=== PATIENT | male | born 1980 | race Caucasian/White ===

== ENCOUNTER 2020-03-16 10:01 | Outpatient (REF) | payer OTHER, SELFPAY ==
[2020-03-16 13:58] LABS: MANUAL DIFF FLAG NO
[2020-03-16 14:15] LABS: Basophils Percent Auto 0.5 % (0-2); Eosinophils Absolute Auto 0.1 X10*3/uL (0.0-0.4); Eosinophils Percent Auto 1.6 % (0-4); Hematocrit 43.5 % (42-52); Hemoglobin 14.4 g/dl (14.0-18.0); Imm Gran Abs Auto 0.01 X10*3/uL (0.00-0.03); Imm Gran Pct Auto 0.3 % (0.0-0.4); Lymphocytes Percent Auto 26.6 % (20-40); Mean Corpuscular HGB Conc 33.1 g/dl (31.0-36.0); Mean Corpuscular Hemoglobin 31.3 pg (27.0-33.0); Mean Corpuscular Volume 94.6 fL (80-98); Mean Platelet Volume 11.2 fL (9.4-12.4); Monocytes Absolute Auto 0.6 X10*3/uL (0.1-1.2); Monocytes Percent Auto 14.6 % (2-11); Neutrophils Absolute Auto 2.2 X10*3/uL (2.0-8.3); Neutrophils Percent Auto 56.4 % (45-73); Platelet Count 264 X10*3/uL (160-400); White Blood Count 3.8 X10*3/uL (4.8-10.8)
[2020-03-16 14:40] LABS: Alanine Aminotransferase 12 U/L (0-40); Albumin Level 4.5 g/dL (3.5-5.0); Alkaline Phosphatase 47 U/L (39-117); Aspartate Amino Transferase 16 U/L (5-37); Bilirubin Direct 0.2 mg/dL (0.0-0.5); Bilirubin Total 0.7 mg/dL (0.0-1.0); Total Protein 7.3 g/dL (6.5-8.0)
== END 2020-03-16 10:02 | disposition home or self-care (01) ==
LOC: HO.10HDL 10:01
PROVIDERS: Visit Provider Internal Medicine
DX: K50.812 Crohn's disease of both small and large intestine with intestinal obstruction (principal)
CPT/HCPCS: 36415; 80076; 85025

== ENCOUNTER 2020-04-13 16:01 | Inpatient (IN) | payer OTHER, SELFPAY ==
--- NOTE | 2020-04-13 | XR_ITS ---
EXAMINATION: XR CHEST CLINICAL INFORMATION: NG tube insertion. COMPARISON: 04/13/2020 TECHNIQUE: Frontal view of the chest was obtained. FINDINGS: The enteric tube has been further advanced since the prior study. It now terminates over the stomach. The side port is in the region of the gastroesophageal junction. The lungs are well expanded. There is no focal consolidation, edema, or effusion. Bronchial wall thickening noted. No pneumothorax. The cardiomediastinal silhouette is within normal limits. No acute osseous abnormality. XR/XR chest 1V IMPRESSION: Enteric tube now terminating over the stomach with the side-port in the region of the gastroesophageal junction. Consider further advancement. Bronchial wall thickening can be seen with a small airways process such as asthma or atypical/viral infection.
--- NOTE | 2020-04-13 | XR_ITS ---
EXAMINATION: XR CHEST CLINICAL INFORMATION: NG tube placement COMPARISON: 11/11/2018 TECHNIQUE: Frontal view of the chest was obtained. FINDINGS: There is an enteric tube in place terminating at the distal esophagus. The lungs are well expanded. There is no focal consolidation, edema, or effusion. Bronchial wall thickening noted. No pneumothorax. The cardiomediastinal silhouette is within normal limits. No acute osseous abnormality. XR/XR chest 1V IMPRESSION: Enteric tube terminating at the distal esophagus. Advancement recommended. Bronchial wall thickening can be seen with a small airways process such as asthma or atypical/viral infection.
--- NOTE | 2020-04-13 | XR_ITS ---
EXAMINATION: CHEST 1 VIEW CLINICAL INFORMATION: Enteric tube placement. COMPARISON: Multiple prior exams are reviewed. The most recent is from the same day at 1015 hours. TECHNIQUE: An AP view of the chest was obtained at 2345 hours. FINDINGS: The cardiac silhouette is not enlarged. An enteric tube tip overlies the left upper quadrant, likely within the stomach. The mediastinal and hilar contours are unremarkable. There are neither pleural effusions nor pneumothoraces. There are no consolidations. The osseous structures are stable. XR/XR chest 1V IMPRESSION: Enteric tube in place. No evidence for acute disease.
[2020-04-13 16:12] VITALS: BP 119/80; PULSE 80; RESP 16; TEMP 36.9; O2SAT 99; BMI 27.1
--- NOTE | 2020-04-13 17:05 | ED_ITS ---
HPI - Abdominal Pain General Chief Complaint: Abdominal Pain Stated Complaint: abdominal pain Time Seen by Provider: 04/13/20 16:55 Source: patient Mode of arrival: ambulatory Limitations: no limitations History of Present Illness HPI narrative: Patient comes to the emergency room complaining of diffuse abdominal pain starting this morning at 05:00. Patient unfortunately has history of Crohn's disease with multiple small-bowel obstructions, patient estimates he has had over 50 throughout his lifetime. Patient is very familiar with the pain. Patient denies vomiting, no diarrhea Related Data Home Medications Medication Instructions Recorded Confirmed azathioprine 300 mg PO DAILY 04/13/20 04/13/20 lorazepam 1 mg PO BID PRN 04/13/20 04/13/20 ustekinumab [Stelara] 90 mg SUBCUT Q4W 04/13/20 04/13/20 zolpidem 10 mg PO BEDTIME PRN 04/13/20 04/13/20 Allergies Allergy/AdvReac Type Severity Reaction Status Date / Time Penicillins Allergy Mild RASH Unverified 01/12/20 15:42 penicillin V Allergy Unknown rash Verified 11/28/15 00:00 Review of Systems Review of Systems Appearance: Alert. Oriented X3. No acute distress. Eyes: Pupils equal, round and reactive to light. ENT: Pharynx normal. Neck: Normal inspection. Neck supple. No lymph nodes noted. No crepitus CVS: Normal heart rate and rhythm. Pulses normal. Normal S1 and S2 Respiratory: No respiratory distress. Breath sounds normal. No Wheezing. No rales Abdomen: Soft, mildly distended, diffusely tender Skin: Skin warm and dry. Normal skin color. Normal skin turgor. Extremities: No lower extremity edema. No lower extremity edema. No Lacerations. No Rash Neuro: Oriented X 3. No motor deficit. No sensory deficit. Moving all extermities. No slurred speech. Physical Exam Vital Signs: Vital Signs: Last Vital Signs Temp 98.7 F 04/13/20 17:42 Pulse 65 04/13/20 17:42 Resp 65 H 04/13/20 17:42 BP 116/73 04/13/20 17:42 Pulse Ox 96 04/13/20 17:42 Body Mass Index 27.1 Course Course Course Narrative: I discussed the CT scan on the patient with Dr. Leroy, patient being admitted for SBO MDM - Abdominal Pain Lab Data Result diagrams: 04/13/20 17:22 04/13/20 17:22 Labs: Lab Results 04/13/20 04/13/20 Range/Units 17:22 17:22 WBC 8.8 (4.8-10.8) X10*3/uL RBC 4.21 L (4.60-5.80) X10*6/uL Hgb 13.6 L (14.0-18.0) g/dl Hct 38.8 L (42-52) % MCV 92.2 (80-98) fL MCH 32.3 (27.0-33.0) pg MCHC 35.1 (31.0-36.0) g/dl RDW 13.3 (11.0-16.0) % Plt Count 231 (160-400) X10*3/uL MPV 10.3 (9.4-12.4) fL Immature Gran % (Auto) 0.8 H (0.0-0.4) % Neut % (Auto) 80.9 H (45-73) % Lymph % (Auto) 9.0 L (20-40) % [place] % (Auto) 8.3 (2-11) % Eos % (Auto) 0.8 (0-4) % Baso % (Auto) 0.2 (0-2) % Lymph # (Auto) 0.8 L (1.2-4.9) X10*3/uL [place] # (Auto) 0.7 (0.1-1.2) X10*3/uL Eos # (Auto) 0.1 (0.0-0.4) X10*3/uL Baso # (Auto) 0.0 (0.0-0.2) X10*3/uL Abs Immat Gran (auto) 0.07 H (0.00-0.03) X10*3/uL Absolute Neuts (auto) 7.1 (2.0-8.3) X10*3/uL Absolute Nucleated RBC 0.000 (0.0-0.012) X10*3/uL Nucleated RBC % (auto) 0.0 (0.0-0.2) /100WBC Sodium 142 (135-145) mmol/L Potassium 4.1 (3.3-5.1) mmol/l Chloride 105 (96-108) mmol/L Carbon Dioxide 30 H (22-29) mmol/L Anion Gap 11 L (12-20) BUN 15 (9-16) mg/dL Creatinine 0.95 (0.5-1.4) mg/dL Estim Creat Clear Calc 108.9 Estimated GFR > 60 Random Glucose 88 (60-115) mg/dL Calcium 9.3 (8.4-10.2) mg/dL Total Bilirubin 0.4 (0.0-1.0) mg/dL Direct Bilirubin 0.2 (0.0-0.5) mg/dL AST 20 (5-37) U/L ALT 9 (0-40) U/L Alkaline Phosphatase 51 (39-117) U/L Total Protein 7.3 (6.5-8.0) g/dL Albumin 4.5 (3.5-5.0) g/dL Lipase 26 (8-78) U/L Imaging Data CT scan - abdomen: Radiologist's impression: FINDINGS: LUNG BASES: The visualized lung bases are unremarkable. LIVER, GALLBLADDER, AND BILIARY TREE: The liver is normal in size, shape, and attenuation. No focal hepatic lesion or biliary ductal dilatation is present. The gallbladder is unremarkable with no evidence of radiopaque gallstones, gallbladder wall thickening, or obvious pericholecystic inflammatory changes. PANCREAS: Unremarkable. SPLEEN: Unremarkable. ADRENAL GLANDS: Unremarkable. KIDNEYS AND URETERS: The kidneys are normal in size, shape, and attenuation. No hydronephrosis, hydroureter, or calculi seen. No perinephric stranding. BLADDER: Unremarkable. GASTROINTESTINAL TRACT: Distended stomach without wall thickening. Normal caliber small bowel proximally. The small bowel progressively gets dilated, with significantly dilated small bowel in the midabdomen with air-fluid levels. Distally the small bowel is decompressed. There is a suture line in the left lower quadrant, which may be the transition point. There are no areas of small bowel wall thickening seen, although evaluation is limited for this. The colon is normal in caliber. No colonic wall thickening. No acute inflammatory changes. No free air. No significant free fluid. ABDOMINAL WALL: No significant hernia is appreciated. LYMPH NODES: Normal. VASCULAR: Unremarkable. PELVIC VISCERA: The prostate and seminal vesicles are unremarkable. OSSEOUS STRUCTURES: No acute or suspicious osseous abnormality. CT/CT abdomen pelvis wo con IMPRESSION: Appearance of a small bowel obstruction, likely transitioning at the anastomotic site of the left lower quadrant. Small bowel dilatation is more prominent than on the study from 11/11/2018. There is gas and stool in portions of the colon suggesting that this obstruction may be early or partial. Discharge Plan Discharge Clinical Impression: Small bowel obstruction Patient Disposition: Admitted As Inpatient [facility] Past Medical History Medical History (Updated 04/13/20 @ 17:32 by Alexandre Leroy MD) Acute Crohn's disease Anxiety Crohn's disease SBO (small bowel obstruction) Small bowel obstruction Surgical History History of bowel resection History of bowel resection History of laparotomy Hx of appendectomy Social History Social History Alcohol intake: never Smoked in Last 30 Days: No Use of substances other than those prescribed or required for medical reasons: No Advance Directives: No Advance Directives Information Provided: No
--- NOTE | 2020-04-13 17:09 | CT_ITS ---
EXAMINATION: CT ABDOMEN AND PELVIS WITHOUT CONTRAST CLINICAL INFORMATION: Multiple small bowel obstructions. History of Crohn's disease. Rule out small bowel obstruction. COMPARISON: 11/11/2018 TECHNIQUE: Multidetector volumetric imaging was performed from the superior aspect of the liver through the pubic symphysis. Sagittal and coronal reformatted images were obtained on the technologist's workstation. This CT examination was performed using dose optimization techniques as appropriate, variously including the following: *Automated exposure control *Adjustment of mA and/or kV according to patient size (this includes techniques or standardized protocols for targeted exams where dose is matched to indication/reason for exam; i.e. extremities or head) *Use of iterative reconstruction technique DLP: 578 mGy-cm FINDINGS: LUNG BASES: The visualized lung bases are unremarkable. LIVER, GALLBLADDER, AND BILIARY TREE: The liver is normal in size, shape, and attenuation. No focal hepatic lesion or biliary ductal dilatation is present. The gallbladder is unremarkable with no evidence of radiopaque gallstones, gallbladder wall thickening, or obvious pericholecystic inflammatory changes. PANCREAS: Unremarkable. SPLEEN: Unremarkable. ADRENAL GLANDS: Unremarkable. KIDNEYS AND URETERS: The kidneys are normal in size, shape, and attenuation. No hydronephrosis, hydroureter, or calculi seen. No perinephric stranding. BLADDER: Unremarkable. GASTROINTESTINAL TRACT: Distended stomach without wall thickening. Normal caliber small bowel proximally. The small bowel progressively gets dilated, with significantly dilated small bowel in the midabdomen with air-fluid levels. Distally the small bowel is decompressed. There is a suture line in the left lower quadrant, which may be the transition point. There are no areas of small bowel wall thickening seen, although evaluation is limited for this. The colon is normal in caliber. No colonic wall thickening. No acute inflammatory changes. No free air. No significant free fluid. ABDOMINAL WALL: No significant hernia is appreciated. LYMPH NODES: Normal. VASCULAR: Unremarkable. PELVIC VISCERA: The prostate and seminal vesicles are unremarkable. OSSEOUS STRUCTURES: No acute or suspicious osseous abnormality. CT/CT abdomen pelvis wo con IMPRESSION: Appearance of a small bowel obstruction, likely transitioning at the anastomotic site of the left lower quadrant. Small bowel dilatation is more prominent than on the study from 11/11/2018. There is gas and stool in portions of the colon suggesting that this obstruction may be early or partial.
[2020-04-13] MEDS: 0.9 % Sodium Chloride 1,000 ML 999 ML IVCONT (17:22)
--- NOTE | 2020-04-13 17:24 | PM.HPGS ---
History of Present Illness History of Present Illness Date of Service: 04/14/20 Chief complaint: small bowel obstruction, crohns ds Narrative: Justin Jorge is a 40 year old male wellkknwon to me. He has a long history of Crohn's disease and has had multiple admissions for SBO here. He has had a laparoscopy and bowel resection (smalbowel?) in [place] in the distant past which required readmission for an anastomotic leak managed nonoperatively. He describes haveing abdominal pain starting around noontime today. He describes this as crampy, severe and diffuse and similar to his previous other episodes of SBO. he denesi any vomitting although says he ahd a little nausea earlier. He says he did pass flatus earlier today. His last admission here for SBO was in October 2019. He says this current episode feels like his other episodes. Review of Systems Constitutional: Constitutional: Denies chills and Denies fever(s) Cardiovascular: Cardiovascular: Denies chest pain, Denies dyspnea and Denies dyspnea on exertion Respiratory: Respiratory: Denies cough, Denies dyspnea and Denies dyspnea on exertion Gastrointestinal: Gastrointestinal: Denies hematochezia and Denies change in bowel habits Genitourinary: Genitourinary: Denies hematuria and Denies difficulty urinating Musculoskeletal: Musculoskeletal: Denies back pain and Denies limited range of motion Neurologic: Denies focal weakness and Denies convulsions Psychiatric: Psychiatric: Denies depression and Denies mood swings PMF Past Medical History Medical History (Updated 04/13/20 @ 17:32 by Alexandre Leroy MD) Acute Crohn's disease Anxiety Crohn's disease SBO (small bowel obstruction) Small bowel obstruction Family History Pertinent family history: none Family history: reviewed and not pertinent Surgical History Surgical History History of bowel resection History of bowel resection History of laparotomy Hx of appendectomy Social History Social History Household Members: Family Housing: House Do you presently have visiting nurse or other home services: Yes Alcohol intake: never Smoking Status: Never smoker Smoked in Last 30 Days: No Second Hand Smoke Exposure: No Use of substances other than those prescribed or required for medical reasons: No Currently Displaying Signs/Symptoms of Drug Intoxication Withdrawal: No Have you been hit, kicked, punched, or otherwise hurt by someone within the past year? If so, by whom?: No Do you feel safe in your current relationship?: Yes Is there a partner from a previous relationship who is making you feel unsafe now?: No Are you made to feel afraid or neglected: No Advance Directives: No Advance Directives Information Provided: No Do you have thoughts of harming others: None Do you have a plan to hurt others: No Plan Recently lost weight without trying: No Meds Allergies Allergy/AdvReac Type Severity Reaction Status Date / Time Penicillins Allergy Mild RASH Unverified 01/12/20 15:42 penicillin V Allergy Unknown rash Verified 11/28/15 00:00 Home Medications Medication Instructions Recorded Confirmed Type azathioprine 300 mg PO DAILY 04/13/20 04/13/20 History lorazepam 1 mg PO BID PRN 04/13/20 04/13/20 History ustekinumab [Stelara] 90 mg SUBCUT Q4W 04/13/20 04/13/20 History zolpidem 10 mg PO BEDTIME PRN 04/13/20 04/13/20 History Physical Exam Vital Signs: Vital Signs: Last Vital Signs Temp 98.4 F 04/13/20 16:12 Pulse 80 04/13/20 16:12 Resp 16 04/13/20 16:12 BP 119/80 04/13/20 16:12 Pulse Ox 99 04/13/20 16:12 Body Mass Index 27.1 Const: General: alert; No comfortable Orientation/consciousness: patient oriented x3 Neck: Neck: Yes no lymphadenopathy Resp: Auscultation: clear to auscultation bilaterally Cardio: Rhythm: regular rhythm GI: Palpation (GI): Soft to palpation, Tenderness to palpation present (GI) (diffuse,vague), no guarding and not rigid Neuro: General: patient oriented x3 Results Results Labs: Chemistry 04/13/20 04/14/20 17:22 06:19 Sodium 142 140 Potassium 4.1 4.0 Carbon Dioxide 30 H 26 BUN 15 14 Creatinine 0.95 0.74 Calcium 9.3 8.2 L D Hematology 04/13/20 04/14/20 17:22 06:19 WBC 8.8 4.2 L Hgb 13.6 L 11.9 L Plt Count [address] scan report/results: image reviewed Assessment and Plan (1) Small bowel obstruction: Status: Acute He has longstandiing Crohn's disease and has had multiple admissions for SBO. His CT scan does show dilated small bowel loops in the lower abdomen. He does have air distally suggestive of partial SBO. His current presentationn is the same as his previous episodes. He will be admitted and kept NPO with IVF. He will have an NGT placed. He currently has a benign exam. He is familiar with the plan.
[2020-04-13 17:35] VITALS: RESP 16
[2020-04-13] MEDS: HYDROmorphone HCl 1 MG/ML SYRINGE IVPUSH ×2 (17:35→18:46)
[2020-04-13 17:42] VITALS: BP 116/73; PULSE 65; RESP 65; TEMP 37.1; O2SAT 96
[2020-04-13 17:43] LABS: MANUAL DIFF FLAG NO
[2020-04-13 18:02] LABS: Basophils Percent Auto 0.2 % (0-2); Eosinophils Absolute Auto 0.1 X10*3/uL (0.0-0.4); Eosinophils Percent Auto 0.8 % (0-4); Hematocrit 38.8 % (42-52); Hemoglobin 13.6 g/dl (14.0-18.0); Imm Gran Abs Auto 0.07 X10*3/uL (0.00-0.03); Imm Gran Pct Auto 0.8 % (0.0-0.4); Lymphocytes Absolute Auto 0.8 X10*3/uL (1.2-4.9); Mean Corpuscular HGB Conc 35.1 g/dl (31.0-36.0); Mean Corpuscular Hemoglobin 32.3 pg (27.0-33.0); Mean Corpuscular Volume 92.2 fL (80-98); Mean Platelet Volume 10.3 fL (9.4-12.4); Monocytes Absolute Auto 0.7 X10*3/uL (0.1-1.2); Monocytes Percent Auto 8.3 % (2-11); Neutrophils Absolute Auto 7.1 X10*3/uL (2.0-8.3); Neutrophils Percent Auto 80.9 % (45-73); Platelet Count 231 X10*3/uL (160-400); Red Blood Count 4.21 X10*6/uL (4.60-5.80); Red Cell Distribution Width 13.3 % (11.0-16.0); White Blood Count 8.8 X10*3/uL (4.8-10.8)
[2020-04-13 18:09] LABS: Alanine Aminotransferase 9 U/L (0-40); Albumin Level 4.5 g/dL (3.5-5.0); Alkaline Phosphatase 51 U/L (39-117); Anion Gap 11 (12-20); Aspartate Amino Transferase 20 U/L (5-37); Bilirubin Direct 0.2 mg/dL (0.0-0.5); Bilirubin Total 0.4 mg/dL (0.0-1.0); Blood Urea Nitrogen 15 mg/dL (9-16); Calcium 9.3 mg/dL (8.4-10.2); Carbon Dioxide 30 mmol/L (22-29); Chloride 105 mmol/L (96-108); Creatinine Clr Calc Pharmacy 108.9; Estimated Glomerular Filt Rate > 60; Glucose Random 88 mg/dL (60-115); Lipase 26 U/L (8-78); Potassium 4.1 mmol/l (3.3-5.1); Sodium 142 mmol/L (135-145); Total Protein 7.3 g/dL (6.5-8.0)
[2020-04-13 18:46] VITALS: RESP 16
[2020-04-13 19:10] VITALS: BP 131/65; PULSE 67; RESP 16; TEMP 36.1; O2SAT 99
[2020-04-13 19:24] LABS: COVID-19 Test Negative (Negative)
[2020-04-13] MEDS: HYDROmorphone HCl 0.5 MG/0.5 ML SYRINGE IVPUSH (21:14)
[2020-04-13] MEDS: Lactated Ringers 1,000 ML 100 ML IVCONT (21:14)
[2020-04-13] MEDS: LORazepam 2 MG/ML VIAL 0.5 MG IVPUSH (23:01)
[2020-04-13 23:59] VITALS: BP 136/72; PULSE 59; RESP 18; TEMP 36.6; O2SAT 97
[2020-04-14] MEDS: HYDROmorphone HCl 0.5 MG/0.5 ML SYRINGE IVPUSH ×5 (02:22→19:59)
[2020-04-14 03:18] VITALS: BP 116/66; PULSE 52; RESP 18; TEMP 36.5; O2SAT 98
[2020-04-14] MEDS: Lactated Ringers 1,000 ML 100 ML IVCONT ×3 (06:19→15:42)
[2020-04-14 07:12] LABS: Hemoglobin 11.9 g/dl (14.0-18.0); Mean Corpuscular HGB Conc 33.1 g/dl (31.0-36.0); Mean Corpuscular Hemoglobin 31.5 pg (27.0-33.0); Mean Corpuscular Volume 95.2 fL (80-98); Platelet Count 197 X10*3/uL (160-400); Red Blood Count 3.78 X10*6/uL (4.60-5.80); Red Cell Distribution Width 13.4 % (11.0-16.0); White Blood Count 4.2 X10*3/uL (4.8-10.8)
[2020-04-14 07:49] LABS: Anion Gap 11 (12-20); Blood Urea Nitrogen 14 mg/dL (9-16); Calcium 8.2 mg/dL (8.4-10.2); Carbon Dioxide 26 mmol/L (22-29); Chloride 107 mmol/L (96-108); Creatinine Clr Calc Pharmacy 139.9; Estimated Glomerular Filt Rate > 60; Glucose Random 105 mg/dL (60-115); Sodium 140 mmol/L (135-145)
[2020-04-14 07:57] VITALS: BP 116/63; PULSE 56; RESP 20; TEMP 36.5; O2SAT 100
[2020-04-14] MEDS: azaTHIOprine 50 MG TABLET 300 MG PO (08:42)
--- NOTE | 2020-04-14 10:15 | PM.PNGS ---
Subjective Subjective Date of Service: 04/14/20 Interval history: feels much better says abdl pain has imrpvoed markedly passing flatus Physical Exam Vital Signs: Vital Signs: Last Vital Signs Temp 97.7 F 04/14/20 07:57 Pulse 56 04/14/20 07:57 Resp 20 04/14/20 07:57 BP 116/63 04/14/20 07:57 Pulse Ox 100 04/14/20 07:57 Body Mass Index 27.1 Chemistry 04/13/20 04/14/20 17:22 06:19 Sodium 142 140 Potassium 4.1 4.0 Carbon Dioxide 30 H 26 BUN 15 14 Creatinine 0.95 0.74 Calcium 9.3 8.2 L D Hematology 04/13/20 04/14/20 17:22 06:19 WBC 8.8 4.2 L Hgb 13.6 L 11.9 L Plt Count 231 197 Const: General: comfortable and no acute distress Orientation/consciousness: patient oriented x3 Resp: Effort & Inspection: normal respiratory effort Cardio: Rate: regular rate Rhythm: regular rhythm GI: Palpation (GI): Soft to palpation, not firm, nontender and no guarding Neuro: General: patient oriented x3 Progress Note: A&P Assessment and plan (1) Small bowel obstruction: Status: Acute Assessment and Plan: improving well labs ok looks well plan to dc NGT later today pt well known to me Fall Risk Details Current Medications: Current Medications Generic Name Dose Route Start Last Admin Trade Name Freq PRN Reason Stop Dose Admin Azathioprine 300 mg 04/14/20 09:00 04/14/20 08:42 Azathioprine 50 Mg Tablet PO 300 mg DAILY DEAN Administration Hydromorphone HCl 0.5 mg 04/13/20 17:40 04/14/20 06:20 Hydromorphone Hcl 0.5 Mg/0.5 Ml Syringe IVPUSH 0.5 mg Q4H PRN Administration pain Lactated Ringer's 1,000 mls @ 100 mls/hr 04/13/20 17:45 04/14/20 06:19 Lr IVCONT 100 mls/hr .Q10H DEAN Administration Lorazepam 0.5 mg 04/13/20 17:45 04/13/20 23:01 Lorazepam 2 Mg/Ml Vial IVPUSH 0.5 mg Q8H PRN Administration anxiety Ondansetron HCl 4 mg 12/18/20 17:39 Ondansetron Hcl 4 Mg/2 Ml Vial IVPUSH Q8H PRN nausea Pharmacy Consult 1 each 04/13/20 17:27 Consult Rx Perform Med Rec MISCELLANE ONCE PRN Consult order Zolpidem Tartrate 5 mg 04/13/20 17:41 Zolpidem Tartrate 5 Mg Tablet PO BEDTIME PRN Insomnia Time Spent With Patient Time: Total time spent is greater than 50% in coordination of care (as documented) at patient's floor/unit and/or counseling patient: Time with patient: 15 - 24 minutes
--- NOTE | 2020-04-14 13:50 | PC.NURSE ---
1350 NG-TUBE REMOVED BY DR LINDQUIST. PATIENT TOLERATED WELL. [id number] 50CC OUTPUT. WILL CONTINUE TO MONITOR AND ASSESS.
--- NOTE | 2020-04-14 14:06 | MHC.CM.PN ---
Pt reports he lives at home with his and is full independent with all care and mobility. 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 Pt reports he has a HCP naming his , Loli, as his agent and he goes to [facility] where he was seeing SILVIA Kasper for primary care. pts current DC plan is home with no services pt will drive himself home, car is in the lot
[2020-04-14 19:41] VITALS: BP 121/74; PULSE 48; RESP 16; TEMP 36.4; O2SAT 98
[2020-04-14] MEDS: Zolpidem Tartrate 5 MG TABLET PO (22:22)
[2020-04-15 01:18] VITALS: BP 129/68; PULSE 56; RESP 16; TEMP 36.1; O2SAT 99
[2020-04-15] MEDS: HYDROmorphone HCl 0.5 MG/0.5 ML SYRINGE IVPUSH (02:16)
[2020-04-15 06:00] VITALS: BP 112/58; PULSE 60; RESP 16; TEMP 37.1; O2SAT 99
[2020-04-15 07:47] VITALS: BP 109/67; PULSE 51; RESP 15; TEMP 36.2; O2SAT 98
[2020-04-15] MEDS: azaTHIOprine 50 MG TABLET 300 MG PO (08:48)
--- NOTE | 2020-04-15 09:58 | PM.PNGS ---
Subjective Subjective Date of Service: 04/15/20 Interval history: feels well passing flatus no abdl pain no N/V Physical Exam Vital Signs: Vital Signs: Last Vital Signs Temp 97.2 F 04/15/20 07:47 Pulse 51 04/15/20 07:47 Resp 15 04/15/20 07:47 BP 109/67 04/15/20 07:47 Pulse Ox 98 04/15/20 07:47 Body Mass Index 27.1 Const: General: comfortable and no acute distress Resp: Effort & Inspection: normal respiratory effort Cardio: Rate: regular rate GI: Inspection: No distended Palpation (GI): Soft to palpation, nontender and no guarding Progress Note: A&P Assessment and plan (1) Small bowel obstruction: Status: Acute Assessment and Plan: clinically resolved advance diet looks well he says he feels ready to go home plan to dc home today when tolerating diet (2) Crohn's disease: Problem details: continue same meds ffup with Dr. James Status: Acute Fall Risk Details Current Medications: Current Medications Generic Name Dose Route Start Last Admin Trade Name Freq PRN Reason Stop Dose Admin Azathioprine 300 mg 04/14/20 09:00 04/15/20 08:48 Azathioprine 50 Mg Tablet PO 300 mg DAILY DEAN Administration Hydromorphone HCl 0.5 mg 04/13/20 17:40 04/15/20 02:16 Hydromorphone Hcl 0.5 Mg/0.5 Ml Syringe IVPUSH 0.5 mg Q4H PRN Administration pain Lactated Ringer's 1,000 mls @ 100 mls/hr 04/13/20 17:45 04/15/20 01:42 Lr IVCONT Infused .Q10H DEAN Infusion Lorazepam 0.5 mg 04/13/20 17:45 04/13/20 23:01 Lorazepam 2 Mg/Ml Vial IVPUSH 0.5 mg Q8H PRN Administration anxiety Ondansetron HCl 4 mg 04/13/20 17:39 Ondansetron Hcl 4 Mg/2 Ml Vial IVPUSH Q8H PRN nausea Pharmacy Consult 1 each 04/13/20 17:27 Consult Rx Perform Med Rec MISCELLANE ONCE PRN Consult order Zolpidem Tartrate 5 mg 04/13/20 17:41 04/14/20 22:22 Zolpidem Tartrate 5 Mg Tablet PO 5 mg BEDTIME PRN Administration Insomnia Time Spent With Patient Time: Total time spent is greater than 50% in coordination of care (as documented) at patient's floor/unit and/or counseling patient: Time with patient: 15 - 24 minutes
[2020-04-15] MEDS: Lactated Ringers 1,000 ML 100 ML IVCONT (10:08)
--- NOTE | 2020-04-15 10:24 | MHC.CM.PN ---
PATIENT WILL RETURN HOME TODAY - SELF CARE. CAR IS IN LOT. RN AWARE OF PLAN.
[2020-04-15 11:57] VITALS: BP 125/64; PULSE 52; RESP 17; TEMP 36.1; O2SAT 100
--- NOTE | 2020-04-15 14:43 | PC.NURSE ---
pt reported tolerating regular diet well, without any pain, nausea or vomitting
--- NOTE | 2020-04-17 13:50 | PM.DS ---
DS: Providers Provider Date of admission: 04/13/20 17:38 Primary care physician: Unknown Physician DS: Diagnosis Discharge Diagnosis (1) Small bowel obstruction: Status: Acute Problem details: The patient is a 40-year-old male history of Crohn's disease, multiple surgeries in the past, admitted because of abdominal pain, diffuse. He has had multiple admissions for small-bowel obstruction likely related to his previous small-bowel resection. He had a CAT scan done in the ER showing dilated small bowel loops consistent with partial small-bowel obstruction possibly at the level of small-bowel anastomosis. An NG tube was placed. He really did not have significant output but had good improvement of his abdominal pain after his 1st hospital day. He was getting Dilaudid 0.5 mg for his pain and this had improved significantly. There was minimal output from the NG tube so I removed the NG tube after his 1st hospital day. He was started on clear liquids and this was slowly advanced. He continued to tolerate this. On April 15, 2020, he continued to tolerate regular diet. He had good flatus in good bowel movements. He did not have any significant pains was discharged home. (2) Crohn's disease: Status: Acute Problem details: continue same meds ffup with Dr. James DS: Medications Discharge Medications Home Medications: Home Medications Medication Instructions Recorded Confirmed Stelara 90 mg SUBCUT Q4W 04/13/20 04/13/20 azathioprine 300 mg PO DAILY 04/13/20 04/13/20 lorazepam 1 mg PO BID PRN 04/13/20 04/13/20 zolpidem 10 mg PO BEDTIME PRN 04/13/20 04/13/20 DS: Summary Time Spent with Patient Time attestation: Total time spent providing and/or coordinating discharge services: Physical Exam Vital Signs: Vital Signs: Last Vital Signs Temp 97.0 F 04/15/20 11:57 Pulse 52 04/15/20 11:57 Resp 17 04/15/20 11:57 BP 125/64 04/15/20 11:57 Pulse Ox 100 04/15/20 11:57 Body Mass Index 27.1 Const: General: comfortable and no acute distress Orientation/consciousness: patient oriented x3 Neck: Neck: Yes no lymphadenopathy Resp: Auscultation: clear to auscultation bilaterally Cardio: Rhythm: regular rhythm GI: Palpation (GI): Soft to palpation, nontender and no guarding Neuro: General: patient oriented x3 DS: Data Data Completed and Pending Labs on day of discharge: 04/13/20 XR chest 1V Stat XR chest 1V Stat XR chest 1V Stat 04/13/20 17:00 Morphine Sulfate 4 mg IVPUSH ONCE ONE 04/13/20 17:01 0.9 % Sodium Chloride [Ns] 1,000 ml IVCONT 999 mls/hr 04/13/20 17:09 CT abdomen pelvis wo con Stat 04/13/20 17:21 NG/OG Tube Insert/Maintain NOW 04/13/20 17:22 Basic Metabolic Panel Stat Complete Blood Count Auto Diff Stat Lipase Stat Liver Panel Stat HYDROmorphone HCl [Dilaudid] 1 mg IVPUSH ONCE ONE 04/13/20 17:27 Consult Rx Perform Med Rec 1 each MISCELLANE ONCE PRN 04/13/20 17:39 ondansetron HCL [Zofran] 4 mg IVPUSH Q8H PRN 04/13/20 17:40 HYDROmorphone HCl [Dilaudid] 0.5 mg IVPUSH Q4H PRN 04/13/20 17:41 Zolpidem Tartrate [Ambien] 5 mg PO BEDTIME PRN 04/13/20 17:43 Up ad brinda .prn Vital Signs Q8HR 04/13/20 17:45 LORazepam [Ativan] 0.5 mg IVPUSH Q8H PRN Lactated Ringers [Lr] 1,000 ml IVCONT 100 mls/hr 04/13/20 17:46 Compression Therapy QSHIFT 04/13/20 18:41 HYDROmorphone HCl [Dilaudid] 1 mg IVPUSH ONCE ONE 04/13/20 18:55 COVID-19 ID NOW (Siddiqi) Stat 04/13/20 Dinner NPO Diet 04/13/20 19:52 NG/OG Tube Insert/Maintain NOW 04/14/20 06:19 Basic Metabolic Panel Routine Complete Blood Count no Diff Routine 04/14/20 09:00 azaTHIOprine [Imuran] 300 mg PO DAILY 04/14/20 Lunch Clear Liquid Diet Laboratory Last Values WBC 4.2 X10*3/uL (4.8-10.8) L 04/14/20 06:19 RBC 3.78 X10*6/uL (4.60-5.80) L 04/14/20 06:19 Hgb 11.9 g/dl (14.0-18.0) L 04/14/20 06:19 Hct 36.0 % (42-52) L 04/14/20 06:19 MCV 95.2 fL (80-98) 04/14/20 06:19 MCH 31.5 pg (27.0-33.0) 04/14/20 06:19 MCHC 33.1 g/dl (31.0-36.0) 04/14/20 06:19 RDW 13.4 % (11.0-16.0) 04/14/20 06:19 Plt Count 197 X10*3/uL (160-400) 04/14/20 06:19 MPV 11.0 fL (9.4-12.4) 04/14/20 06:19 Immature Gran % (Auto) 0.8 % (0.0-0.4) H 04/13/20 17:22 Neut % (Auto) 80.9 % (45-73) H 04/13/20 17:22 Lymph % (Auto) 9.0 % (20-40) L 04/13/20 17:22 [place] % (Auto) 8.3 % (2-11) 04/13/20 17:22 Eos % (Auto) 0.8 % (0-4) 04/13/20 17:22 Baso % (Auto) 0.2 % (0-2) 04/13/20 17:22 Lymph # (Auto) 0.8 X10*3/uL (1.2-4.9) L 04/13/20 17:22 [place] # (Auto) 0.7 X10*3/uL (0.1-1.2) 04/13/20 17:22 Eos # (Auto) 0.1 X10*3/uL (0.0-0.4) 04/13/20 17:22 Baso # (Auto) 0.0 X10*3/uL (0.0-0.2) 04/13/20 17:22 Abs Immat Gran (auto) 0.07 X10*3/uL (0.00-0.03) H 12/18/20 17:22 Absolute Neuts (auto) 7.1 X10*3/uL (2.0-8.3) 04/13/20 17:22 Absolute Nucleated RBC 0.000 X10*3/uL (0.0-0.012) 04/14/20 06:19 Nucleated RBC % (auto) 0.0 /100WBC (0.0-0.2) 04/14/20 06:19 Sodium 140 mmol/L (135-145) 04/14/20 06:19 Potassium 4.0 mmol/l (3.3-5.1) 04/14/20 06:19 Chloride 107 mmol/L (96-108) 04/14/20 06:19 Carbon Dioxide 26 mmol/L (22-29) 04/14/20 06:19 Anion Gap 11 (12-20) L 04/14/20 06:19 BUN 14 mg/dL (9-16) 04/14/20 06:19 Creatinine 0.74 mg/dL (0.5-1.4) 04/14/20 06:19 Estim Creat Clear Calc 139.9 04/14/20 06:19 Estimated GFR > 60 04/14/20 06:19 Random Glucose 105 mg/dL (60-115) 04/14/20 06:19 Calcium 8.2 mg/dL (8.4-10.2) L D 04/14/20 06:19 Total Bilirubin 0.4 mg/dL (0.0-1.0) 04/13/20 17:22 Direct Bilirubin 0.2 mg/dL (0.0-0.5) 04/13/20 17:22 AST 20 U/L (5-37) 04/13/20 17:22 ALT 9 U/L (0-40) 04/13/20 17:22 Alkaline Phosphatase 51 U/L (39-117) 04/13/20 17:22 Total Protein 7.3 g/dL (6.5-8.0) 04/13/20 17:22 Albumin 4.5 g/dL (3.5-5.0) 04/13/20 17:22 Lipase 26 U/L (8-78) 04/13/20 17:22 COVID-19 (RENÉ) Negative (Negative) 04/13/20 18:55 COVID-19 Clin Com See Note 04/13/20 18:55 Discharge Plan Discharge Anticipated Discharge Date/Time: 04/15/20 10:03 Patient Disposition: Home, Self-Care Referrals: Physician,Unknown [Primary Care Provider] - Broderick James [Physician] - Discharge Medications: Continued azathioprine 50 mg Tablet 300 mg PO DAILY RF: 0 lorazepam 1 mg Tablet 1 mg PO BID PRN (Reason: Anxiety) RF: 0 zolpidem 10 mg Tablet 10 mg PO BEDTIME PRN (Reason: Sleep) RF: 0 Stelara 90 mg/mL Syringe 90 mg SUBCUT Q4W RF: 0 Discharge Orders: Discharge Order (Routine); Ordered 04/15/20 Ordered By: Alexandre Leroy Activity on Discharge: As tolerated Discharge Date/Time: 04/15/20 14:36 Visit Report Forms: Patient Portal Discharge page Care Plan Goals: control Crohn's Health Concerns: control Crohn's ds Plan of Treatment: ffup with GI
== END 2020-04-15 14:36 | disposition home or self-care (01) | DRG 387 ==
LOC: HO.ED 17:33 → HO.IMC 18:04 → HO.S3 04-14 13:34
PROVIDERS: Admitting Provider Surgery; Emergency Provider Emergency Medicine; Visit Provider Surgery
DX: K50.912 Crohn's disease, unspecified, with intestinal obstruction (principal); F41.9 Anxiety disorder, unspecified; Z20.828 Contact with and (suspected) exposure to other viral communicable diseases; Z88.0 Allergy status to penicillin; Z79.899 Other long term (current) drug therapy
CPT/HCPCS: 36415; 71045; 74176; 80048; 80076; 83690; 85025; 85027; 87635; 96361; 96374; 96375; 99284; 99285; J1170; J2060

== ENCOUNTER 2020-05-27 01:21 | Inpatient (IN) | payer OTHER, SELFPAY ==
[2020-05-27] VITALS (7 sets, daily range): BP systolic 99–139; BP diastolic 44–74; PULSE 52–72; RESP 16; TEMP 36.6; O2SAT 96–100; BMI 30.7
--- NOTE | 2020-05-27 02:44 | PC.NURSE ---
Pt found ambulating from the waiting room into room 18 with a steady gait. Pt is CAOx4, speaking full sentences, reporting a s/o of abdominal pain @ 2100 with nausea. Pt reports a hx of Crohns with multiple SBOs, most recently 1 month ago. MD aware. IV established, labs obtained and sent. Pt aware of plan to medicate, awaiting primary MD duncan. Call paz within reach, continue to monitor.
[2020-05-27 02:45] LABS: MANUAL DIFF FLAG NO
[2020-05-27 02:46] LABS: Basophils Percent Auto 0.1 % (0-2); Eosinophils Absolute Auto 0.1 X10*3/uL (0.0-0.4); Eosinophils Percent Auto 0.5 % (0-4); Hematocrit 41.8 % (42-52); Hemoglobin 13.9 g/dl (14.0-18.0); Imm Gran Abs Auto 0.03 X10*3/uL (0.00-0.03); Imm Gran Pct Auto 0.3 % (0.0-0.4); Lymphocytes Absolute Auto 0.8 X10*3/uL (1.2-4.9); Lymphocytes Percent Auto 7.9 % (20-40); Mean Corpuscular HGB Conc 33.3 g/dl (31.0-36.0); Mean Corpuscular Hemoglobin 31.1 pg (27.0-33.0); Mean Corpuscular Volume 93.5 fL (80-98); Mean Platelet Volume 10.7 fL (9.4-12.4); Monocytes Absolute Auto 0.9 X10*3/uL (0.1-1.2); Monocytes Percent Auto 8.6 % (2-11); Neutrophils Absolute Auto 8.4 X10*3/uL (2.0-8.3); Neutrophils Percent Auto 82.6 % (45-73); Platelet Count 252 X10*3/uL (160-400); Red Blood Count 4.47 X10*6/uL (4.60-5.80); Red Cell Distribution Width 13.1 % (11.0-16.0); White Blood Count 10.1 X10*3/uL (4.8-10.8)
[2020-05-27] MEDS: ondansetron HCL 4 MG/2 ML VIAL IVPUSH ×2 (02:50→20:13)
[2020-05-27] MEDS: HYDROmorphone HCl 0.5 MG/0.5 ML SYRINGE IVPUSH ×5 (02:50→20:13)
--- NOTE | 2020-05-27 02:52 | PC.NURSE ---
Pt medicated per MAR, awaiting primary MD eval.
--- NOTE | 2020-05-27 03:09 | ED_ITS ---
HPI - Abdominal Pain General Chief Complaint: Abdominal Pain Stated Complaint: Bowel Pain Time Seen by Provider: 05/27/20 02:44 Source: patient Mode of arrival: ambulatory History of Present Illness HPI narrative: This is a 40-year-old male with history of Crohn's and multiple surgeries for this condition as well as being on azathioprine/Stelara who presents with onset abdominal pain crampy/sharp, nonradiating and not associated with fevers or chills but having some mild nausea without vomiting. He states his last bowel movement was yesterday morning, nonbloody, but states he is now unable to pass flatus. Related Data Home Medications Medication Instructions Recorded Confirmed Stelara 90 mg SUBCUT Q4W 04/13/20 05/27/20 azathioprine 300 mg PO DAILY 04/13/20 05/27/20 lorazepam 1 mg PO BID PRN 04/13/20 05/27/20 zolpidem 10 mg PO BEDTIME PRN 04/13/20 05/27/20 Allergies Allergy/AdvReac Type Severity Reaction Status Date / Time Penicillins Allergy Mild RASH Verified 04/14/20 19:53 penicillin V Allergy Unknown rash Verified 04/14/20 19:53 Review of Systems Review of Systems Pertinent positives and negatives as stated in HPI 10 point review of systems is otherwise negative. Physical Exam Vital Signs: Vital Signs: Last Vital Signs Temp 97.8 F 05/27/20 01:24 Pulse 71 05/27/20 04:09 Resp 16 05/27/20 04:09 BP 132/66 05/27/20 04:09 Pulse Ox 100 05/27/20 02:53 Body Mass Index 30.7 VITAL SIGNS: Reviewed. GENERAL: Well developed, well nourished, in no acute distress. HEAD: Normocephalic/atraumatic, EYES: PERRLA, EOMI EARS: Ext canals without abnormality NOSE: Nares patent bilateral OROPHARYNX: no oral lesions noted, posterior pharynx clear NECK: Supple, no adenopathy LUNGS: Normal breath sounds. No adventitious sounds or accessory muscle use. SpO2<99> CARDIOVASCULAR: Regular rate and rhythm without noted murmurs, no JVD or lower extremity edema. ABDOMEN: Soft, pain at lower abdomen without rebound, non-distended with bowel sounds. NEUROLOGIC: Alert and oriented x 4. Course Course Course Narrative: This is a 40-year-old male with history and clinical pre sentation consistent with likely Crohn's flare leading to SBO. Review of all investigations without acute findings on laboratory review, but CT scan consistent with SBO. This case was discussed with the surgical team who is agreeable for admission and NG was placed. Patient received pain medication with good resolution discomfort and COVID-19 is negative. MDM - Abdominal Pain Lab Data Result diagrams: 05/27/20 02:40 05/27/20 02:40 Labs: Lab Results 05/27/20 05/27/20 05/27/20 Range/Units 02:40 02:40 02:40 WBC 10.1 (4.8-10.8) X10*3/uL RBC 4.47 L (4.60-5.80) X10*6/uL Hgb 13.9 L (14.0-18.0) g/dl Hct 41.8 L (42-52) % MCV 93.5 (80-98) fL MCH 31.1 (27.0-33.0) pg MCHC 33.3 (31.0-36.0) g/dl RDW 13.1 (11.0-16.0) % Plt Count 252 D (160-400) X10*3/uL MPV 10.7 (9.4-12.4) fL Immature Gran % (Auto) 0.3 (0.0-0.4) % Neut % (Auto) 82.6 H (45-73) % Lymph % (Auto) 7.9 L (20-40) % [place] % (Auto) 8.6 (2-11) % Eos % (Auto) 0.5 (0-4) % Baso % (Auto) 0.1 (0-2) % Lymph # (Auto) 0.8 L (1.2-4.9) X10*3/uL [place] # (Auto) 0.9 (0.1-1.2) X10*3/uL Eos # (Auto) 0.1 (0.0-0.4) X10*3/uL Baso # (Auto) 0.0 (0.0-0.2) X10*3/uL Abs Immat Gran (auto) 0.03 (0.00-0.03) X10*3/uL Absolute Neuts (auto) 8.4 H (2.0-8.3) X10*3/uL Absolute Nucleated RBC 0.000 (0.0-0.012) X10*3/uL Nucleated RBC % (auto) 0.0 (0.0-0.2) /100WBC Hold Blue Top SEE NOTE Sodium 141 (135-145) mmol/L Potassium 4.1 (3.3-5.1) mmol/L Chloride 105 (96-108) mmol/L Carbon Dioxide 25 (22-29) mmol/L Anion Gap 15 (12-20) BUN 14 (9-16) mg/dL Creatinine 0.95 (0.5-1.4) mg/dL Estim Creat Clear Calc 123.2 Estimated GFR > 60 Random Glucose 169 H D (60-115) mg/dL Calcium 9.1 D (8.4-10.2) mg/dL Total Bilirubin 0.7 (0.0-1.0) mg/dL AST 20 (5-37) U/L ALT 13 (0-40) U/L Alkaline Phosphatase 47 (39-117) U/L Total Protein 6.9 (6.5-8.0) g/dL Albumin 4.2 (3.5-5.0) g/dL Lipase 24 (8-78) U/L COVID-19 (RENÉ) (Negative) COVID-19 Clin Com 05/27/20 Range/Units 04:02 WBC (4.8-10.8) X10*3/uL RBC (4.60-5.80) X10*6/uL Hgb (14.0-18.0) g/dl Hct (42-52) % MCV (80-98) fL MCH (27.0-33.0) pg MCHC (31.0-36.0) g/dl RDW (11.0-16.0) % Plt Count (160-400) X10*3/uL MPV (9.4-12.4) fL Immature Gran % (Auto) (0.0-0.4) % Neut % (Auto) (45-73) % Lymph % (Auto) (20-40) % [place] % (Auto) (2-11) % Eos % (Auto) (0-4) % Baso % (Auto) (0-2) % Lymph # (Auto) (1.2-4.9) X10*3/uL [place] # (Auto) (0.1-1.2) X10*3/uL Eos # (Auto) (0.0-0.4) X10*3/uL Baso # (Auto) (0.0-0.2) X10*3/uL Abs Immat Gran (auto) (0.00-0.03) X10*3/uL Absolute Neuts (auto) (2.0-8.3) X10*3/uL Absolute Nucleated RBC (0.0-0.012) X10*3/uL Nucleated RBC % (auto) (0.0-0.2) /100WBC Hold Blue Top Sodium (135-145) mmol/L Potassium (3.3-5.1) mmol/L Chloride (96-108) mmol/L Carbon Dioxide (22-29) mmol/L Anion Gap (12-20) BUN (9-16) mg/dL Creatinine (0.5-1.4) mg/dL Estim Creat Clear Calc Estimated GFR Random Glucose (60-115) mg/dL Calcium (8.4-10.2) mg/dL Total Bilirubin (0.0-1.0) mg/dL AST (5-37) U/L ALT (0-40) U/L Alkaline Phosphatase (39-117) U/L Total Protein (6.5-8.0) g/dL Albumin (3.5-5.0) g/dL Lipase (8-78) U/L COVID-19 (RENÉ) Negative (Negative) COVID-19 Clin Com See Note Discharge Plan Discharge Clinical Impression: SBO (small bowel obstruction) Crohn's disease Qualifiers: Gastrointestinal tract location: small intestine Digestive disease complication type: unspecified complication Qualified Code(s): K50.019 - Crohn's disease of small intestine with unspecified complications Patient Disposition: Admitted As Inpatient [facility] Past Medical History Source: nursing notes reviewed Medical History Acute Crohn's disease Anxiety Crohn's disease SBO (small bowel obstruction) Small bowel obstruction Surgical History History of bowel resection History of bowel resection History of laparotomy Hx of appendectomy Social History Social History Household Members: Family Housing: House Alcohol intake: never Smoking Status: Never smoker Second Hand Smoke Exposure: No Advance Directives: No Current occupational status: employed
--- NOTE | 2020-05-27 03:11 | CT_ITS ---
EXAMINATION: CT ABDOMEN AND PELVIS WITH CONTRAST CLINICAL INFORMATION: Abdominal discomfort COMPARISON: 04/13/2020 TECHNIQUE: Multidetector volumetric images were obtained from the superior aspect of the liver through the pubic symphysis following administration 85 mL of Omnipaque 350 intravenous contrast. Sagittal and coronal reformatted images were obtained on the technologist's workstation. Oral contrast: No This CT examination was performed using dose optimization techniques as appropriate, variously including the following: *Automated exposure control *Adjustment of mA and/or kV according to patient size (this includes techniques or standardized protocols for targeted exams where dose is matched to indication/reason for exam; i.e. extremities or head) *Use of iterative reconstruction technique DLP: 507 mGy-cm FINDINGS: LUNG BASES: The visualized lung bases are unremarkable. LIVER, GALLBLADDER, AND BILIARY TREE: The liver is normal in size, shape, and attenuation. No focal hepatic lesion or biliary ductal dilatation is present. The gallbladder is unremarkable with no evidence of radiopaque gallstones, gallbladder wall thickening, or obvious pericholecystic inflammatory changes. PANCREAS: Unremarkable. SPLEEN: Unremarkable. ADRENAL GLANDS: Unremarkable. KIDNEYS AND URETERS: The kidneys are normal in size, shape, and attenuation. No hydronephrosis, hydroureter, or obstructing calculi seen. No perinephric stranding. BLADDER: Unremarkable. GASTROINTESTINAL TRACT: There are multiple fluid-filled, dilated loops of small bowel throughout much of the abdomen. Distalmost small bowel loops appear relatively decreased in caliber, and overall appearance is consistent with small bowel obstruction. Transition is favored to lie in the vicinity of a suture line in the left lower quadrant. Colon appears partially collapsed. Patient is suspected to be status post appendectomy. No free air is seen. ABDOMINAL WALL: No significant hernia is appreciated. LYMPH NODES: Normal. VASCULAR: Unremarkable. PELVIC VISCERA: Unremarkable. Trace free fluid is noted in the pelvis. OSSEOUS STRUCTURES: Unremarkable. CT/CT abdomen pelvis w con IMPRESSION: Small bowel obstruction, with transition point favored to lie in the left lower quadrant in the vicinity of an anastomotic suture line. Trace pelvic free fluid.
[2020-05-27 03:12] LABS: Alanine Aminotransferase 13 U/L (0-40); Albumin Level 4.2 g/dL (3.5-5.0); Alkaline Phosphatase 47 U/L (39-117); Anion Gap 15 (12-20); Aspartate Amino Transferase 20 U/L (5-37); Bilirubin Total 0.7 mg/dL (0.0-1.0); Blood Urea Nitrogen 14 mg/dL (9-16); Calcium 9.1 mg/dL (8.4-10.2); Carbon Dioxide 25 mmol/L (22-29); Chloride 105 mmol/L (96-108); Creatinine Clr Calc Pharmacy 123.2; Estimated Glomerular Filt Rate > 60; Glucose Random 169 mg/dL (60-115); Lipase 24 U/L (8-78); Potassium 4.1 mmol/L (3.3-5.1); Sodium 141 mmol/L (135-145); Total Protein 6.9 g/dL (6.5-8.0)
--- NOTE | 2020-05-27 03:19 | PC.NURSE ---
Off to CT on hospital bed.
[2020-05-27] MEDS: iohexoL 350 MG/ML 100 ML INFUS..BTL 85 ML IV (03:34)
[2020-05-27] MEDS: HYDROmorphone HCl 1 MG/ML SYRINGE IVPUSH (04:00)
--- NOTE | 2020-05-27 04:03 | PC.NURSE ---
Pt medicated for 8/10 abdominal pain. Pt reporting intermittent nausea despite receiving Zofran previously. Covid swab obtained and sent.
--- NOTE | 2020-05-27 04:10 | PC.NURSE ---
Med Rec completed at bedside with pt.
--- NOTE | 2020-05-27 04:30 | P.HPGS_ITS ---
History of Present Illness History of Present Illness Date of Service: 05/27/20 Chief complaint: SBO, Crohns Disease Narrative: Justin Jorge is a 40 year old male well-known to the service with a long history of Crohn's disease and multiple admissions for small-bowel obstructions most recently in March 2020, and prior to this he was admitted in October 2019. His most recent surgery Crohn's disease occurred approximately 4 years ago and was performed in [place]. He reports the onset of abdominal pain mostly in the lower abdomen starting yesterday with no inciting events. His last bowel movement was yesterday morning and apparently was normal. He denies nausea, or vomiting. The pain is described as crampy but occasionally increases in severity. He subsequently presented to the emergency department was noted to be tender in the lower abdomen. A CT of the abdomen and pelvis revealed dilated proximal loops of small bowel with an area of narrowing near the previous anastomosis. There is some air into the colon suggestive of a partial obstruction. Findings are suggestive of a partial obstruction due to adhesions although a Crohn's flare is a possibility. He is admitted to the surgical service for further management of his small-bowel obstruction. A nasogastric tube was placed in the emergency department and connected to wall suction. This produced mainly bilious fluid. Review of Systems Constitutional: Constitutional: Denies chills and Denies fever(s) Cardiovascular: Cardiovascular: Denies chest pain, Denies dyspnea and Denies dyspnea on exertion Respiratory: Respiratory: Denies cough, Denies dyspnea and Denies dyspnea on exertion Gastrointestinal: Gastrointestinal: Reports abdominal pain, Reports bloating, Denies hematochezia, Denies change in bowel habits, Reports GI cramping, Denies nausea and Denies vomiting Genitourinary: Genitourinary: Denies hematuria and Denies difficulty urinating Musculoskeletal: Musculoskeletal: Denies back pain and Denies limited range of motion Neurologic: Denies confusion, Denies focal weakness and Denies convulsions Psychiatric: Psychiatric: Denies confusion, Denies depression and Denies mood swings PMFSH Past Medical History Medical History (Updated 05/27/20 @ 09:44 by Igor Peters MD) Acute Crohn's disease Anxiety Crohn's disease SBO (small bowel obstruction) Small bowel obstruction Surgical History Surgical History History of bowel resection History of bowel resection History of laparotomy Hx of appendectomy Social History Social History Household Members: Family Housing: House Alcohol intake: never Smoking Status: Never smoker Second Hand Smoke Exposure: No Advance Directives: No Current occupational status: employed Meds Allergies Allergy/AdvReac Type Severity Reaction Status Date / Time Penicillins Allergy Mild RASH Verified 04/14/20 19:53 penicillin V Allergy Unknown rash Verified 04/14/20 19:53 Home Medications Medication Instructions Recorded Confirmed Type Stelara 90 mg SUBCUT Q4W 04/13/20 05/27/20 History azathioprine 300 mg PO DAILY 04/13/20 05/27/20 History lorazepam 1 mg PO BID PRN 04/13/20 05/27/20 History zolpidem 10 mg PO BEDTIME PRN 04/13/20 05/27/20 History Physical Exam Vital Signs: Vital Signs: Last Vital Signs Temp 97.8 F 05/27/20 01:24 Pulse 71 05/27/20 04:09 Resp 16 05/27/20 04:09 BP 132/66 05/27/20 04:09 Pulse Ox 100 05/27/20 02:53 Body Mass Index 30.7 Const: General: cooperative, comfortable and well developed; No confusion Nutritional Appearance: well nourished Orientation/consciousness: patient oriented x3 and No confusion Eyes: Sclerae: sclerae normal EOM: EOMs intact bilaterally Neck: Neck: Yes normal visual inspection Resp: Effort & Inspection: normal respiratory effort, no cough and no re spiratory distress Cardio: Jugular venous distension: no JVD Rate: regular rate Rhythm: regular rhythm GI: Inspection: Yes normal to inspection Palpation (GI): Soft to palpation, Tenderness to palpation present (GI) in the LLQ and in the RLQ, no guarding, not rigid and No hepatosplenomegaly present Percussion: Yes tympanic to percussi on Auscultation: normal bowel sounds Skin: General skin exam: dry skin Rashes: no rashes Neuro: General: patient oriented x3, no focal motor deficits and No confusion Extrem: General: Yes full ROM and Yes no clubbing, cyanosis or edema Results Results Labs: Short CBC 05/27/20 Range/Units 02:40 WBC 10.1 (4.8-10.8) X10*3/uL Hgb 13.9 L (14.0-18.0) g/dl Hct 41.8 L (42-52) % Plt Count 252 D (160-400) X10*3/uL BMP 05/27/20 02:40 Sodium 141 Potassium 4.1 Chloride 105 Carbon Dioxide 25 BUN 14 Creatinine 0.95 Calcium 9.1 D Liver Function 05/27/20 Range/Units 02:40 Total Bilirubin 0.7 (0.0-1.0) mg/dL AST 20 (5-37) U/L ALT 13 (0-40) U/L Alkaline Phosphatase 47 (39-117) U/L Albumin 4.2 (3.5-5.0) g/dL [address] [id number] Scan ReportSigned Patient: Justin JorgeMR#: [id number]: [id number]:[id number]/Sex: 40 / MADM Date: 05/27/20Loc: [address] Dr: Ordering Physician: Shania Castillo MD Date of Service: 05/27/20 Procedure(s): CT abdomen pelvis w con Accession Number(s): [id number] cc: Shania Castillo MD~ EXAMINATION: CT ABDOMEN AND PELVIS WITH CONTRAST CLINICAL INFORMATION: Abdominal discomfort COMPARISON: 04/13/2020 TECHNIQUE: Multidetector volumetric images were obtained from the superior aspect of the liver through the pubic symphysis following administration 85 mL of Omnipaque 350 intravenous contrast. Sagittal and coronal reformatted images were obtained on the technologist's workstation. Oral contrast: No This CT examination was performed using dose optimization techniques as appropriate, variously including the following: *Automated exposure control *Adjustment of mA and/or kV according to patient size (this includes techniques or standardized protocols for targeted exams where dose is matched to indication/reason for exam; i.e. extremities or head) *Use of iterative reconstruction technique DLP: 507 mGy-cm FINDINGS: LUNG BASES: The visualized lung bases are unremarkable. LIVER, GALLBLADDER, AND BILIARY TREE: The liver is normal in size, shape, and attenuation. No focal hepatic lesion or biliary ductal dilatation is present. The gallbladder is unremarkable with no evidence of radiopaque gallstones, gallbladder wall thickening, or obvious pericholecystic inflammatory changes. PANCREAS: Unremarkable. SPLEEN: Unremarkable. ADRENAL GLANDS: Unremarkable. KIDNEYS AND URETERS: The kidneys are normal in size, shape, and attenuation. No hydronephrosis, hydroureter, or obstructing calculi seen. No perinephric stranding. BLADDER: Unremarkable. GASTROINTESTINAL TRACT: There are multiple fluid-filled, dilated loops of small bowel throughout much of the abdomen. Distalmost small bowel loops appear relatively decreased in caliber, and overall appearance is consistent with small bowel obstruction. Transition is favored to lie in the vicinity of a suture line in the left lower quadrant. Colon appears partially collapsed. Patient is suspected to be status post appendectomy. No free air is seen. ABDOMINAL WALL: No significant hernia is appreciated. LYMPH NODES: Normal. VASCULAR: Unremarkable. PELVIC VISCERA: Unremarkable. Trace free fluid is noted in the pelvis. OSSEOUS STRUCTURES: Unremarkable. CT/CT abdomen pelvis w con IMPRESSION: Small bowel obstruction, with transition point favored to lie in the left lower quadrant in the vicinity of an anastomotic suture line. Trace pelvic free fluid. Dictated By:TEMO DHILLON MDSigned By:<Electronically signed by TEMO DHILLON MD in OV>05/27/20 0343 Assessment and Plan (1) SBO (small bowel obstruction): Status: Acute 40-year-old male patient with a previous history of Crohn's disease, status post small-bowel resection with a known history of adhesions and small- bowel obstructions now presenting with a recurrent episode of increased abdominal pain and abdominal distension consistent with a small-bowel obstruction. Patient's symptoms began last evening after progressed overnight. He subsequently presents to the emergency department for further evaluation. CT of the abdomen and pelvis confirmed a partial obstruction with dilated proximal small bowel which seems to be associated with the patient's prior anastomosis. Plan will include IV fluid hydration, nasogastric decompression and NPO. Prior episodes of obstruction have improved with non operative measures. Will consult Gastroenterology as well further opinion regarding his Crohn's disease. Patient understands and agrees with the plan. (2) Crohn's disease: Qualifiers: Digestive disease complication type: unspecified complication Gastrointestinal tract location: small intestine Qualified Code(s): K50.019 - Crohn's disease of small intestine with unspecified complications Status: Acute
[2020-05-27 04:36] LABS: COVID-19 Test Negative (Negative)
--- NOTE | 2020-05-27 04:44 | XR_ITS ---
EXAMINATION: XR CHEST CLINICAL INFORMATION: NG tube placement COMPARISON: 04/13/2020 TECHNIQUE: Frontal view of the chest was obtained. FINDINGS: Nasogastric tube courses into the stomach. Lung volumes are symmetric. No focal consolidation is seen. No evidence of pneumothorax, pleural effusion, or pulmonary edema. The cardiomediastinal contour is unremarkable. No acute osseous findings are seen. XR/XR chest 1V IMPRESSION: Nasogastric tube courses into the stomach.
--- NOTE | 2020-05-27 04:45 | PC.NURSE ---
XRay at bedside to confirm NG tube placement.
--- NOTE | 2020-05-27 04:51 | PC.NURSE ---
15 F NG tube inserted into left nare, brown food particles noted in NG tube, NGT attached to LWCS. Placement confirmed with XRay. Pt resting in bed, lights dim for comfort, aware of plan to admit.
[2020-05-27] MEDS: Dextrose 5 % and Lactated Ring 1,000 ML 125 ML IVCONT ×2 (04:56→13:48)
--- NOTE | 2020-05-27 06:30 | PC.NURSE ---
Pt calling this RN into the room, reporting 9/10 pain to abdomen. Pt extremely uncomfortable, holding abdomen. Pt medicated with PRN Dilaudid with good effect. Continue to monitor, pt aware of plan of care.
[2020-05-27] MEDS: 0.9 % Sodium Chloride Flush 3 ML SYRINGE IVFLUSH ×2 (10:42→17:30)
--- NOTE | 2020-05-27 11:03 | MHC.CM.PN ---
Met with pt to discuss d/c planning and verify demographic information Pt resides with family: fully independent : works, has no services. Pt drove self to [employer] - car is in parking lot: No d/c needs anticipated at this time. Pt has many past admissions for same condition and is well versed on his medical management.
--- NOTE | 2020-05-27 11:59 | PC.NURSE ---
Patient awake and alert. Skin PWD. resp even and non labored. pt states abdominal pain improved after dilaudid. NG tube w/ small amount of output 125ml, gastric contents read in color.
--- NOTE | 2020-05-27 12:25 | PC.NURSE ---
GI at bedside
--- NOTE | 2020-05-27 15:11 | PC.NURSE ---
patient w/ minimal output from NG tube, remained at 125cc. Flores PALMER irrigated NGT with 60cc NS w/ no change in output.
--- NOTE | 2020-05-27 15:24 | PC.NURSE ---
This RN spoke with Dr. Liang regarding minimal NGT out, verbal order to remove NGT at this time. NGT removed.
--- NOTE | 2020-05-27 17:16 | PM.GICN ---
History of Present Illness Data of Consult Service Date: 05/27/20 Requesting physician: Igor Peters Primary Care Provider: Claudette Lebron MD HPI Reason for consult: SBO 40 year old male w/ hx of Crohn's disease and multiple admissions for small-bowel obstructions most recently in March 2020, who I am seeing for assessment for small bowel obstruction. He ws doing well until yesterday when he had sudden onset lower abdominal pain, and cramping which felt like prior episodes of SBO.His last bowel movement was yesterday morning and apparently was normal. He denies nausea, or vomiting, no fever or chills. He has been on stelara and imuran for 2 yrs (increased to q 4 wks), unsure how much it has helped but he has maybe only had 3 admissions over last 2 yrs for obstruction as compared to many more when he was on remicade, been on many other meds in past incl remicade, entyvio, never been on MTX, unsure about budesonide. Had prior small bowel resection and adhesionolysis in past. His most recent surgery for Crohn's disease occurred approximately 4 years ago and was performed in [place] A CT of the abdomen and pelvis this admission revealed dilated proximal loops of small bowel with an area of narrowing near the previous anastomosis. Review of Systems Review of Systems: Yes all other systems are reviewed and are negative Constitutional: Constitutional: Reports no additional constitutional complaints Eyes: Eyes: Reports no additional eye complaints Cardiovascular: Cardiovascular: Reports no additional cardiovascular complaints Respiratory: Respiratory: Reports no additional respiratory complaints Gastrointestinal: Gastrointestinal: Reports as per HPI Genitourinary: Genitourinary: Reports no additional male genitourinary complaints Musculoskeletal: Musculoskeletal: Reports no additional musculoskeletal complaints Integumentary/Breasts: Skin/Breast: Reports system reviewed and no additional complaints, except as docu Neurologic: Reports system reviewed and no additional complaints, except as documented and Denies confusion Psychiatric: Psychiatric: Reports no additional psychiatric complaints and Denies confusion Hematologic/Lymphatic: Hematologic/Lymphatic: Reports no additional hematologic/lymphatic complaints Allergic/Immunologic: Allergic/Immunologic: Reports no additional allergic/immunologic complaints [facility] Past Medical History Medical History (Updated 05/27/20 @ 09:44 by Igor Peters MD) Acute Crohn's disease Anxiety Crohn's disease SBO (small bowel obstruction) Small bowel obstruction Surgical History Surgical History History of bowel resection History of bowel resection History of laparotomy Hx of appendectomy Social History Social History Household Members: Family Housing: House Alcohol intake: never Smoking Status: Never smoker Second Hand Smoke Exposure: No Advance Directives: No service: No Current occupational status: employed Meds Allergies Allergy/AdvReac Type Severity Reaction Status Date / Time Penicillins Allergy Mild RASH Verified 04/14/20 19:53 penicillin V Allergy Unknown rash Verified 04/14/20 19:53 Home Medications Medication Instructions Recorded Confirmed Type Stelara 90 mg SUBCUT Q4W 04/13/20 05/27/20 History azathioprine 300 mg PO DAILY 04/13/20 05/27/20 History lorazepam 1 mg PO BID PRN 04/13/20 05/27/20 History zolpidem 10 mg PO BEDTIME PRN 04/13/20 05/27/20 History Physical Exam Vital Signs: Vital Signs: Last Vital Signs Temp 97.8 F 05/27/20 01:24 Pulse 57 05/27/20 15:27 Resp 16 05/27/20 15:27 BP 121/64 05/27/20 15:27 Pulse Ox 96 05/27/20 11:56 Body Mass Index 30.7 Const: General: cooperative, comfortable and well developed; No confusion Nutritional Appearance: well nourished Orientation/consciousness: patient oriented x3 and No confusion Eyes: Sclerae: sclerae normal EOM: EOMs intact bilaterally Neck: Neck: Yes normal visual inspection Resp: Effort & Inspection: normal respiratory effort, no cough and no respiratory distress Cardio: Jugular venous distension: no JVD Rate: regular rate Rhythm: regular rhythm GI: Inspection: Yes normal to inspection Palpation (GI): Soft to palpation, Tenderness to palpation present (GI) in the LLQ and in the RLQ, no guarding, not rigid and No hepatosplenomegaly present Percussion: Yes tympanic to percussion Auscultation: normal bowel sounds Skin: General skin exam: dry skin Rashes: no rashes Neuro: General: patient oriented x3, no focal motor deficits and No confusion Extrem: General: Yes full ROM and Yes no clubbing, cyanosis or edema Results Labs CBC & Chem 7: 05/27/20 02:40 05/27/20 02:40 Labs: Short CBC 05/27/20 Range/Units 02:40 WBC 10.1 (4.8-10.8) X10*3/uL Hgb 13.9 L (14.0-18.0) g/dl Hct 41.8 L (42-52) % Plt Count 252 D (160-400) X10*3/uL BMP 05/27/20 02:40 Sodium 141 Potassium 4.1 Chloride 105 Carbon Dioxide 25 BUN 14 Creatinine 0.95 Calcium 9.1 D Liver Function 05/27/20 Range/Units 02:40 Total Bilirubin 0.7 (0.0-1.0) mg/dL AST 20 (5-37) U/L ALT 13 (0-40) U/L Alkaline Phosphatase 47 (39-117) U/L Albumin 4.2 (3.5-5.0) g/dL Assessment and Plan (1) SBO (small bowel obstruction): Status: Acute 40-year-old male patient with a previous history of Crohn's disease, status post small-bowel resection and adhesionolysis, currently on stelara and imuran combo. Hard to determine if he has a truly fibrostenotic stricture vs inflammatory enteritis superimposed. There is some minor stranding in the peritoneum, bowel wall is hyperattenuated. He does not want to try steroids due to neg systemic effects, and rather have a trial of conservative management, PLAN: 1/ NPO 2/ NGT and fluids 3/ clears when passing gas and NGT o/p reduced 4/ may benefit from checking ustekinumab level and antibody check, will defer to primary GI Dr James 5/ Might consider CTe or MRe, if fibrostentoic stricture then may benefit from stricturoplasty, if inflammatory then might need to consider other options like thalidomide, MTX, clinical trials etc 6/ check micronutrients, incl b12, zinc (2) Crohn's disease: Qualifiers: Digestive disease complication type: unspecified complication Gastrointestinal tract location: small intestine Qualified Code(s): K50.019 - Crohn's disease of small intestine with unspecified complications Status: Acute
[2020-05-28] MEDS: Dextrose 5 % and Lactated Ring 1,000 ML 125 ML IVCONT ×2 (00:17→10:36)
[2020-05-28 00:22] VITALS: BP 129/70; PULSE 54; RESP 14; O2SAT 97
[2020-05-28] MEDS: 0.9 % Sodium Chloride Flush 3 ML SYRINGE IVFLUSH (00:24)
[2020-05-28] MEDS: LORazepam 1 MG TABLET PO (00:24)
[2020-05-28] MEDS: HYDROmorphone HCl 0.5 MG/0.5 ML SYRINGE IVPUSH ×2 (00:24→05:39)
[2020-05-28 04:25] VITALS: BP 100/51; PULSE 54; RESP 14; O2SAT 98
[2020-05-28 06:52] LABS: Basophils Percent Auto 0.3 % (0-2); Eosinophils Absolute Auto 0.2 X10*3/uL (0.0-0.4); Eosinophils Percent Auto 4.7 % (0-4); Hematocrit 37.3 % (42-52); Hemoglobin 12.2 g/dl (14.0-18.0); Imm Gran Abs Auto 0.01 X10*3/uL (0.00-0.03); Imm Gran Pct Auto 0.3 % (0.0-0.4); Lymphocytes Absolute Auto 1.4 X10*3/uL (1.2-4.9); MANUAL DIFF FLAG NO; Mean Corpuscular HGB Conc 32.7 g/dl (31.0-36.0); Mean Corpuscular Hemoglobin 31.5 pg (27.0-33.0); Mean Corpuscular Volume 96.4 fL (80-98); Mean Platelet Volume 10.7 fL (9.4-12.4); Monocytes Absolute Auto 0.6 X10*3/uL (0.1-1.2); Monocytes Percent Auto 14.6 % (2-11); Neutrophils Absolute Auto 1.7 X10*3/uL (2.0-8.3); Neutrophils Percent Auto 44.1 % (45-73); Platelet Count 188 X10*3/uL (160-400); Red Blood Count 3.87 X10*6/uL (4.60-5.80); Red Cell Distribution Width 13.2 % (11.0-16.0); White Blood Count 3.8 X10*3/uL (4.8-10.8)
[2020-05-28 07:23] LABS: Anion Gap 7 (12-20); Blood Urea Nitrogen 9 mg/dL (9-16); Carbon Dioxide 31 mmol/L (22-29); Chloride 107 mmol/L (96-108); Creatinine Clr Calc Pharmacy 141.1; Estimated Glomerular Filt Rate > 60; Glucose Random 111 mg/dL (60-115); Potassium 4.1 mmol/L (3.3-5.1); Sodium 141 mmol/L (135-145)
--- NOTE | 2020-05-28 08:43 | PC.NURSE ---
pt is very frustrated and unclear on plan, states he hasn't seen spoke with dr mustafa will start pt on clears and come update patient when he is done wi surgery
--- NOTE | 2020-05-28 10:41 | PC.NURSE ---
pharmacy called for carmen
--- NOTE | 2020-05-28 10:42 | PC.NURSE ---
pt seen by dr mustafa plan for clear liquids and see how patient does, patient wants to be discharged
[2020-05-28] MEDS: azaTHIOprine 50 MG TABLET 300 MG PO (11:34)
--- NOTE | 2020-05-28 12:25 | P.PNGS_ITS ---
Subjective Subjective Date of Service: 05/28/20 Interval history: Patient feels improved, but fustrated about still being in the ED Physical Exam Vital Signs: Vital Signs: Last Vital Signs Temp 98 F 05/27/20 20:11 Pulse 54 05/28/20 04:25 Resp 14 05/28/20 04:25 BP 100/51 L 05/28/20 04:25 Pulse Ox 98 05/28/20 04:25 Body Mass Index 30.7 Const: General: cooperative, healthy appearing, comfortable, no acute distress and well developed Resp: Effort & Inspection: normal respiratory effort and no cough Cardio: Rhythm: regular rhythm GI: Inspection: Yes normal to inspection Palpation (GI): Soft to palpation Percussion: No tympanic to percussion Auscultation: normal bowel sounds Skin: General skin exam: dry skin Rashes: no rashes Progress Note: A&P Assessment and plan (1) Crohn's disease: Status: Acute (2) SBO (small bowel obstruction): Status: Acute Assessment and Plan: Patient with low output from NGT therefore the tube was removed yesterday. Patient started on clear liquids today and tolerated this without nausea or vomiting will advance to regular diet and discharge to home if tolerated. Follow up with GI after discharge. Fall Risk Details Current Medications: Current Medications Generic Name Dose Route Start Last Admin Trade Name Freq PRN Reason Stop Dose Admin Acetaminophen 650 mg 05/27/20 04:43 Acetaminophen 325 Mg Tablet PO Q6H PRN Pain, Mild (Pain Scale 1-3) Azathioprine 300 mg 05/27/20 09:00 05/28/20 11:34 Azathioprine 50 Mg Tablet PO 300 mg DAILY DEAN Administration Hydromorphone HCl 0.5 mg 05/27/20 04:30 05/28/20 05:39 Hydromorphone Hcl 0.5 Mg/0.5 Ml Syringe IVPUSH 0.5 mg Q4H PRN Administration Pain, Severe (Pain Scale 7-10) Dextrose/Lactated Ringer's 1,000 mls @ 125 mls/hr 05/27/20 04:43 05/28/20 10:36 D5lr IVCONT 125 mls/hr .Q8H DEAN Administration Lorazepam 1 mg 05/27/20 04:43 05/28/20 00:24 Lorazepam 1 Mg Tablet PO 1 mg BID PRN Administration Anxiety Ondansetron HCl 4 mg 05/27/20 04:28 05/27/20 20:13 Ondansetron Hcl 4 Mg/2 Ml Vial IVPUSH 4 mg Q8H PRN Administration Nausea and Vomiting Sodium Chloride 3 ml 05/27/20 08:00 05/28/20 10:41 0.9 % Sodium Chloride Flush 3 Ml Syringe IVFLUSH Not Given QSHIFT [facility] Zolpidem Tartrate 10 mg 05/27/20 04:43 Zolpidem Tartrate 5 Mg Tablet PO BEDTIME PRN Sleep Time Spent With Patient Time: Total time spent is greater than 50% in coordination of care (as documented) at patient's floor/unit and/or counseling patient: Time with patient: 15 - 24 minutes
--- NOTE | 2020-05-28 12:58 | PC.NURSE ---
PT TOLERATED CLEARS WELL MENTIONED TO DR MEDINA PT WOULD LIKE TO TRY SOLIDS, PT ORDER PLACED BY , PT THUS FAR HAS TOLERATED SOLIDS, AND STATES HE FEELS LIKE HE COULD GO HOME
--- NOTE | 2020-05-28 14:30 | PM.DS ---
DS: Providers Provider Date of Service: 05/28/20 Date of admission: 05/27/20 04:28 Date of discharge: 05/28/20 Primary care physician: Claudette Lebron MD Admitting clinician: Igor Peters Consults: 05/27/20 04:31 Consult to Gastroenterology Routine Consulting Provider: Rod[facility] Reason for consultation: SBO, Crohn's Disease Attending physician on discharge: Igor Peters DS: Diagnosis Discharge Diagnosis (1) Crohn's disease: Status: Acute (2) SBO (small bowel obstruction): Status: Acute DS: Medications Discharge Medications Home Medications: Home Medications Medication Instructions Recorded Confirmed Stelara 90 mg SUBCUT Q4W 04/13/20 05/27/20 azathioprine 300 mg PO DAILY 04/13/20 05/27/20 lorazepam 1 mg PO BID PRN 04/13/20 05/27/20 zolpidem 10 mg PO BEDTIME PRN 04/13/20 05/27/20 DS: Summary Hospital Course Hospital Course: Justin Jorge is a 40 year old male well-known to the service with a long history of Crohn's disease and multiple admissions for small-bowel obstructions most recently in March 2020, and prior to this he was admitted in October 2019. His most recent surgery Crohn's disease occurred approximately 4 years ago and was performed in [place]. He reports the onset of abdominal pain mostly in the lower abdomen starting 04/25/2021 with no inciting events. His last bowel movement was the morning prior to the onset of the symptoms and apparently was normal. He denied nausea or vomiting. The pain is described as crampy but occasionally increases in severity. He subsequently presented to the emergency department was noted to be tender in the lower abdomen. A CT of the abdomen and pelvis revealed dilated proximal loops of small bowel with an area of narrowing near the previous anastomosis. There is some air into the colon suggestive of a partial obstruction. Findings are suggestive of a partial obstruction due to adhesions although a Crohn's flare is a possibility. He was admitted to the surgical service for further management of his small-bowel obstruction. A nasogastric tube was placed in the emergency department and connected to wall suction. This produced mainly bilious fluid. During the night of the 1st hospital day the patient has nasogastric tube produced only a small amount of bilious material. The tube was subsequently removed and the patient kept NPO. On the 2nd hospital day the patient was started on clear liquids for breakfast which he tolerated well without nausea or vomiting. He reports the passage of flatus and decreased abdominal pain. He was subsequently advanced to a regular low residue diet for lunch which he again tolerated well without nausea or vomiting. He again denied any abdominal pain and is continuing to pass flatus. He felt comfortable enough to go home and understands that he will need to return should the abdominal pain persist. He requested discharge to home. The patient was discharged to home on 05/28/2020. He was instructed remain on a soft diet. He should continue his present medications and should return should the abdominal pain, nausea, or vomiting return. Expressed understanding and agreed with the plan. Time Spent with Patient Time attestation: Total time spent providing and/or coordinating discharge services: Discharge coordination time: Less than 30 minutes Physical Exam Vital Signs: Vital Signs: Last Vital Signs Temp 98 F 05/27/20 20:11 Pulse 54 05/28/20 04:25 Resp 14 05/28/20 04:25 BP 100/51 L 05/28/20 04:25 Pulse Ox 98 05/28/20 04:25 Body Mass Index 30.7 Const: General: cooperative, comfortable, no acute distress and well developed Eyes: Sclerae: sclerae normal EOM: EOMs intact bilaterally Resp: Effort & Inspection: normal respiratory effort, no cough and no stridor Cardio: Rate: regular rate Rhythm: regular rhythm GI: Inspection: Yes normal to inspection Palpation (GI): Soft to palpation, nontender, no guarding, not rigid and hepatosplenomegaly present Percussion: Yes normal to percussion Skin: General skin exam: no rashes or lesions noted Rashes: no rashes Extrem: General: Yes no clubbing, cyanosis or edema Psych: Appearance: grossly normal DS: Data Data Completed and Pending Labs on day of discharge: Laboratory Tests 05/27/20 05/27/20 05/27/20 02:40 02:40 02:40 WBC 10.1 RBC 4.47 L Hgb 13.9 L Hct 41.8 L MCV 93.5 MCH 31.1 MCHC 33.3 RDW 13.1 Plt Count 252 D MPV 10.7 Immature Gran % (Auto) 0.3 Neut % (Auto) 82.6 H Lymph % (Auto) 7.9 L [place] % (Auto) 8.6 Eos % (Auto) 0.5 Baso % (Auto) 0.1 Lymph # (Auto) 0.8 L [place] # (Auto) 0.9 Eos # (Auto) 0.1 Baso # (Auto) 0.0 Abs Immat Gran (auto) 0.03 Absolute Neuts (auto) 8.4 H Absolute Nucleated RBC 0.000 Nucleated RBC % (auto) 0.0 Hold Blue Top SEE NOTE Sodium 141 Potassium 4.1 Chloride 105 Carbon Dioxide 25 Anion Gap 15 BUN 14 Creatinine 0.95 Estim Creat Clear Calc 123.2 Estimated GFR > 60 Random Glucose 169 H D Calcium 9.1 D Total Bilirubin 0.7 AST 20 ALT 13 Alkaline Phosphatase 47 Total Protein 6.9 Albumin 4.2 Lipase 24 COVID-19 (RENÉ) COVID-19 Lysanda Com 05/27/20 05/28/20 05/28/20 04:02 06:24 06:24 WBC 3.8 L RBC 3.87 L Hgb 12.2 L Hct 37.3 L MCV 96.4 MCH 31.5 MCHC 32.7 RDW 13.2 Plt Count 188 D MPV 10.7 Immature Gran % (Auto) 0.3 Neut % (Auto) 44.1 L Lymph % (Auto) 36.0 [place] % (Auto) 14.6 H Eos % (Auto) 4.7 H Baso % (Auto) 0.3 Lymph # (Auto) 1.4 [place] # (Auto) 0.6 Eos # (Auto) 0.2 Baso # (Auto) 0.0 Abs Immat Gran (auto) 0.01 Absolute Neuts (auto) 1.7 L Absolute Nucleated RBC 0.000 Nucleated RBC % (auto) 0.0 Hold Blue Top Sodium 141 Potassium 4.1 Chloride 107 Carbon Dioxide 31 H Anion Gap 7 L BUN 9 Creatinine 0.83 Estim Creat Clear Calc 141.1 Estimated GFR > 60 Random Glucose 111 Calcium 8.0 L D Total Bilirubin AST ALT Alkaline Phosphatase Total Protein Albumin Lipase COVID-19 (RENÉ) Negative COVID-19 Clin Com See Note Discharge Plan Discharge Patient Disposition: Home, Self-Care Referrals: Claudette Lebron MD [Primary Care Provider] - Broderick James [Physician] - 2 Weeks Discharge Medications: Continued azathioprine 50 mg Tablet 300 mg PO DAILY RF: 0 lorazepam 1 mg Tablet 1 mg PO BID PRN (Reason: Anxiety) RF: 0 zolpidem 10 mg Tablet 10 mg PO BEDTIME PRN (Reason: Sleep) RF: 0 Stelara 90 mg/mL Syringe 90 mg SUBCUT Q4W RF: 0 Discharge Orders: Discharge Order (Routine); Ordered 05/28/20 Ordered By: Igor Peters Diet: advance to usual diet Activity on Discharge: As tolerated Stand Alone Forms: Patient Portal Discharge page Visit Report Forms: Patient Portal Discharge page Care Plan Goals: Return to regular diet without nausea, vomiting, abdominal pain Health Concerns: small bowel obstruction due to adhesions, Crohn's Disease Plan of Treatment: Bowel rest, NGT, IVFs
--- NOTE | 2020-05-28 14:49 | MHC.CM.PN ---
PT WILL DC HOME TODAY WITH NO SERVICES. PTS CAR IS IN LOT
== END 2020-05-28 15:03 | disposition home or self-care (01) | DRG 387 ==
LOC: HO.ED 04:22 → HO.EDOVER 06:20
PROVIDERS: Surgery; Admitting Provider Internal Medicine; Emergency Provider Student in an Organized Health Care Education/Training Program; PCP Internal Medicine; Visit Provider Internal Medicine
DX: K50.912 Crohn's disease, unspecified, with intestinal obstruction (principal); F41.9 Anxiety disorder, unspecified; Z20.822 Contact with and (suspected) exposure to COVID-19; Z88.0 Allergy status to penicillin; Z79.899 Other long term (current) drug therapy
CPT/HCPCS: 36415; 71045; 74177; 80048; 80053; 83690; 85025; 87635; 96374; 96375; 99284; 99285; J1170; J2405; Q9967

== ENCOUNTER 2020-06-27 21:18 | Inpatient (IN) | payer OTHER, SELFPAY ==
--- NOTE | ~2020-06-27 | XR_ITS ---
EXAMINATION: XR CHEST CLINICAL INFORMATION: NG tube placement confirmation COMPARISON: 05/27/2020 TECHNIQUE: Frontal view of the chest was obtained. FINDINGS: Enteric tube courses into the stomach. Lung volumes are symmetric. No focal consolidation is seen. No appreciable pneumothorax, though the lung apices are not fully included in the [id number]. No significant pleural effusion or overt pulmonary edema. The cardiomediastinal contour is unremarkable. No acute osseous findings are seen. Excreted contrast is noted in the pelvicalyceal systems of the kidneys. XR/XR chest 1V IMPRESSION: Enteric tube courses into the stomach.
--- NOTE | ~2020-06-27 | CT_ITS ---
EXAMINATION: CT ABDOMEN AND PELVIS WITH CONTRAST CLINICAL INFORMATION: Small bowel obstruction. COMPARISON: CT abdomen pelvis 05/27/2020 TECHNIQUE: Multidetector volumetric images were obtained from the superior aspect of the liver through the pubic symphysis following administration 85 mL of Omnipaque 350 intravenous contrast. Sagittal and coronal reformatted images were obtained on the technologist's workstation. Oral contrast: No This CT examination was performed using dose optimization techniques as appropriate, variously including the following: *Automated exposure control *Adjustment of mA and/or kV according to patient size (this includes techniques or standardized protocols for targeted exams where dose is matched to indication/reason for exam; i.e. extremities or head) *Use of iterative reconstruction technique DLP: 614 mGy-cm FINDINGS: LUNG BASES: The visualized lung bases are unremarkable. LIVER, GALLBLADDER, AND BILIARY TREE: The liver is normal in size, shape, and attenuation. No focal hepatic lesion or biliary ductal dilatation is present. The gallbladder is unremarkable with no evidence of radiopaque gallstones, gallbladder wall thickening, or obvious pericholecystic inflammatory changes. PANCREAS: Unremarkable. SPLEEN: Unremarkable. ADRENAL GLANDS: Unremarkable. KIDNEYS AND URETERS: The kidneys are normal in size, shape, and attenuation. No hydronephrosis, hydroureter, or calculi seen. No perinephric stranding. BLADDER: Unremarkable. GASTROINTESTINAL TRACT: There is a surgical suture line involving small bowel loops in the left lower quadrant. This likely is transition point for a small bowel obstruction. There are dilated small bowel loops up to this point. The small bowel loops distally are decompressed. There is no edema of the bowel wall. No air in the bowel wall. Surgical suture line at the tip of cecum from prior appendectomy. Moderate volume of scattered stool in the colon. Compared to the CAT scan of 04/13/2020. Degree of distention of small bowel loops is similar. The transition point is similar. ABDOMINAL WALL: No significant hernia is appreciated. LYMPH NODES: Normal. VASCULAR: Unremarkable. PELVIC VISCERA: Unremarkable. OSSEOUS STRUCTURES: Unremarkable. CT/CT abdomen pelvis w con IMPRESSION: Small bowel obstruction, likely transition point at an anastomotic site in the left lower quadrant. Severity of the bowel obstruction is similar to prior CAT scan 04/13/2020.
[2020-06-27 21:45] VITALS: BP 126/81; PULSE 72; RESP 20; TEMP 36.7; O2SAT 100; BMI 26.4
--- NOTE | 2020-06-27 21:54 | PC.NURSE ---
Pt medicated with Felix ODT. installation and service technician to obtain labs.
[2020-06-27 22:02] LABS: Basophils Percent Auto 0.5 % (0-2); Eosinophils Absolute Auto 0.1 X10*3/uL (0.0-0.4); Eosinophils Percent Auto 1.5 % (0-4); Hematocrit 42.8 % (42-52); Hemoglobin 14.4 g/dl (14.0-18.0); Imm Gran Abs Auto 0.01 X10*3/uL (0.00-0.03); Imm Gran Pct Auto 0.2 % (0.0-0.4); Lymphocytes Absolute Auto 1.4 X10*3/uL (1.2-4.9); Lymphocytes Percent Auto 21.4 % (20-40); MANUAL DIFF FLAG NO; Mean Corpuscular HGB Conc 33.6 g/dl (31.0-36.0); Mean Corpuscular Hemoglobin 30.4 pg (27.0-33.0); Mean Corpuscular Volume 90.5 fL (80-98); Mean Platelet Volume 10.6 fL (9.4-12.4); Monocytes Absolute Auto 0.8 X10*3/uL (0.1-1.2); Monocytes Percent Auto 12.4 % (2-11); Neutrophils Absolute Auto 4.2 X10*3/uL (2.0-8.3); Platelet Count 224 X10*3/uL (160-400); Red Blood Count 4.73 X10*6/uL (4.60-5.80); Red Cell Distribution Width 12.1 % (11.0-16.0); White Blood Count 6.6 X10*3/uL (4.8-10.8)
[2020-06-27 22:17] VITALS: BP 122/74; PULSE 66; RESP 12; TEMP 36.8; O2SAT 96
[2020-06-27 22:30] LABS: Alanine Aminotransferase 12 U/L (0-40); Albumin Level 4.5 g/dL (3.5-5.0); Alkaline Phosphatase 54 U/L (39-117); Anion Gap 13 (12-20); Aspartate Amino Transferase 21 U/L (5-37); Bilirubin Total 0.5 mg/dL (0.0-1.0); Blood Urea Nitrogen 19 mg/dL (9-16); Calcium 9.9 mg/dL (8.4-10.2); Carbon Dioxide 28 mmol/L (22-29); Chloride 102 mmol/L (96-108); Creatinine Clr Calc Pharmacy 83.4; Estimated Glomerular Filt Rate > 60; Glucose Random 103 mg/dL (60-115); Potassium 4.1 mmol/L (3.3-5.1); Sodium 139 mmol/L (135-145); Total Protein 7.3 g/dL (6.5-8.0)
--- NOTE | 2020-06-27 23:10 | PC.NURSE ---
CHICLE GRINDER FEEDER at bedside for primary eval.
[2020-06-27] MEDS: 0.9 % Sodium Chloride 1,000 ML 999 ML IVCONT (23:13)
[2020-06-27] MEDS: Morphine Sulfate 4 MG/ML CARTRIDGE IVPUSH (23:13)
[2020-06-27 23:16] VITALS: BP 116/75; PULSE 57; RESP 16; O2SAT 98
--- NOTE | 2020-06-27 23:17 | PC.NURSE ---
Pt medicated per MAR. Zoan held at this time as pt denies nausea. IVF infusing per MAR. VSS. Pt off to CT on hospital bed.
--- NOTE | 2020-06-27 23:28 | PC.NURSE ---
Per DIALYSIS NURSE, plan for NGT upon return from CT. Per DIALYSIS NURSE, no need to wait for results of CT prior to placing NGT due to significant history for SBO. Pt returns from CT on hospital bed at this time.
[2020-06-27] MEDS: iohexoL 350 MG/ML 100 ML INFUS..BTL 85 ML IV (23:29)
--- NOTE | 2020-06-27 23:58 | PC.NURSE ---
15F NGT placed to left nostril. CXR at bedside confirming placement. Per APPLICATIONS SUPPORT ANALYST, LWCS at this time. Pt requesting pain medication, APPLICATIONS SUPPORT ANALYST agreeable. Continue to monitor.
[2020-06-28] VITALS (14 sets, daily range): BP systolic 111–139; BP diastolic 59–82; PULSE 48–62; RESP 16–20; TEMP 36.3–37.1; O2SAT 96–100
[2020-06-28] MEDS: HYDROmorphone HCl 2 MG/ML VIAL IVPUSH (00:01)
--- NOTE | 2020-06-28 00:28 | PC.NURSE ---
Med Rec completed at bedside with pt.
--- NOTE | 2020-06-28 00:49 | ED_ITS ---
HPI - Abdominal Pain General Chief Complaint: Abdominal Pain Stated Complaint: Abdominal Pain Time Seen by Provider: 06/27/20 23:06 Source: patient Mode of arrival: ambulatory Limitations: no limitations History of Present Illness HPI narrative: 40-year-old male with past medical history of Crohn's disease and recurrent small-bowel obstructions presents with abdominal pain and inability to pass flatus. States that feels like his prior episodes of small-bowel obstruction. He does not report any fevers, chills, last bowel movement was earlier this morning. Denies chest pain or pressure, palpitations, shortness of breath, dysuria, hematuria, hematochezia, melena, and any other concerning symptoms. MD elicited complaint: abdominal pain Pertinent past history: other (SBO) Onset (ago): day(s) (1) Pain Consistency: constant Location: diffuse Severity: severe Pain scale (0-10): 10 Quality: cramping and fullness Relieving factors: nothing Context: history of similar episodes Related Data Home Medications Medication Instructions Recorded Confirmed Stelara 90 mg SUBCUT Q4W 04/13/20 06/28/20 azathioprine 300 mg PO DAILY 04/13/20 06/28/20 lorazepam 1 mg PO NEEDED PRN 04/13/20 06/28/20 zolpidem 10 mg PO BEDTIME PRN 04/13/20 06/28/20 Allergies Allergy/AdvReac Type Severity Reaction Status Date / Time Penicillins Allergy Mild RASH Verified 06/27/20 21:50 penicillin V Allergy Unknown rash Verified 06/27/20 21:50 Review of Systems Review of Systems Constitutional: No Weight loss, No Fever, No Chills, No Night Sweats, No Fatigue, No Malaise ENT/Mouth: No Hearing loss, No Ear Pain, No Nasal Congestion, No Sinus Pain, No Hoarseness, No sore throat, No Rhinorrhea, No Swallowing Difficulty Eyes: No Eye Pain, No Swelling, No Redness, No Foreign Body, No Discharge, No Vision Changes Cardiovascular: No Chest Pain, No SOB, No Dyspnea on Exertion, No Orthopnea, No Edema, No Palpitations Respiratory: No Cough, No Sputum, No Wheezing, No Smoke Exposure, No Dyspnea Gastrointestinal: Positive Nausea, no Vomiting, no Diarrhea, positive abdominal Pain, No Hematochezia, No Melena Genitourinary: no irregular bleeding, No Dysuria, No Urinary Frequency, No Hematuria, No Urinary Incontinence, No Urgency, No Flank Pain, No Urinary Flow Changes, No Hesitancy Musculoskeletal: No joint pain, No Myalgias, No Joint Swelling Skin: No Skin Lesions, No rash Neuro: No Weakness, No Numbness, No Paresthesias, No Loss of Consciousness, No Dizziness, No Headache Psych: No Anxiety/Panic, No Depression, No SI/HI/AH/VH, No Social Issues Heme/Lymph: No Bruising, No Bleeding,No Lymphadenopathy Endocrine: No Polyuria, No Polydipsia, No Temperature Intolerance Yes all other systems are reviewed and are negative Physical Exam Vital Signs: Vital Signs: Last Vital Signs Temp 98.3 F 06/27/20 22:17 Pulse 61 06/28/20 03:54 Resp 16 06/28/20 03:54 BP 120/64 06/28/20 03:54 Pulse Ox 96 06/28/20 03:54 Body Mass Index 26.4 Appearance: Alert. Oriented X3. Moderate distress. Eyes: Pupils equal, round and reactive to light. EOMI, sclera nonicteric ENT: Pharynx normal. Moist mucous membranes Neck: Normal inspection. Neck supple. CVS: Normal heart rate and rhythm. Pulses normal. Respiratory: No respiratory distress. Lung sounds clear to auscultation all lobes Abdomen: Soft and diffusely tender, hyperactive bowel sounds. Skin: Skin warm and dry. Normal skin color. Normal skin turgor. Extremities: No lower extremity edema. Neuro: No motor deficit. No sensory deficit. Cranial nerves 2-12 intact. Course Course Course Narrative: 40-year-old male with past medical history of Crohn's, small- bowel obstruction, bowel resections, and anxiety presents with suspected small bowel obstruction. Order for CT scan, NG tube, pain management, and fluids. CT scan is positive for small bowel obstruction. Discussion with Dr. Peters at 12:57 p.m. via [place] text, plan of care is to admit. Discussion with patient regarding plan of care, patient verbalizes understanding of and agrees to plan. MDM - Abdominal Pain Differential Diagnosis Differential diagnosis: Likely abdominal pain and small bowel obstruction Medical Records Attestation: I reviewed the patient's medical records. Lab Data Attestation: I reviewed the patient's lab results. Result diagrams: 06/27/20 21:53 06/27/20 21:53 Labs: Lab Results 06/27/20 06/27/20 06/27/20 Range/Units 21:53 21:53 21:53 WBC 6.6 (4.8-10.8) X10*3/uL RBC 4.73 D (4.60-5.80) X10*6/uL Hgb 14.4 (14.0-18.0) g/dl Hct 42.8 (42-52) % MCV 90.5 (80-98) fL MCH 30.4 (27.0-33.0) pg MCHC 33.6 (31.0-36.0) g/dl RDW 12.1 (11.0-16.0) % Plt Count 224 (160-400) X10*3/uL MPV 10.6 (9.4-12.4) fL Immature Gran % (Auto) 0.2 (0.0-0.4) % Neut % (Auto) 64.0 (45-73) % Lymph % (Auto) 21.4 (20-40) % [place] % (Auto) 12.4 H (2-11) % Eos % (Auto) 1.5 (0-4) % Baso % (Auto) 0.5 (0-2) % Lymph # (Auto) 1.4 (1.2-4.9) X10*3/uL [place] # (Auto) 0.8 (0.1-1.2) X10*3/uL Eos # (Auto) 0.1 (0.0-0.4) X10*3/uL Baso # (Auto) 0.0 (0.0-0.2) X10*3/uL Abs Immat Gran (auto) 0.01 (0.00-0.03) X10*3/uL Absolute Neuts (auto) 4.2 (2.0-8.3) X10*3/uL Absolute Nucleated RBC 0.000 (0.0-0.012) X10*3/uL Nucleated RBC % (auto) 0.0 (0.0-0.2) /100WBC Hold Blue Top SEE NOTE Sodium 139 (135-145) mmol/L Potassium 4.1 (3.3-5.1) mmol/L Chloride 102 (96-108) mmol/L Carbon Dioxide 28 (22-29) mmol/L Anion Gap 13 (12-20) BUN 19 H D (9-16) mg/dL Creatinine 1.24 (0.5-1.4) mg/dL Estim Creat Clear Calc 83.4 Estimated GFR > 60 Random Glucose 103 (60-115) mg/dL Calcium 9.9 D (8.4-10.2) mg/dL Total Bilirubin 0.5 (0.0-1.0) mg/dL AST 21 (5-37) U/L ALT 12 (0-40) U/L Alkaline Phosphatase 54 (39-117) U/L Total Protein 7.3 (6.5-8.0) g/dL Albumin 4.5 (3.5-5.0) g/dL Imaging Data CT scan - abdomen: Attestation: I personally reviewed and interpreted this imaging study as follows: Radiologist's impression: EXAMINATION: CT ABDOMEN AND PELVIS WITH CONTRAST CLINICAL INFORMATION: Small bowel obstruction. COMPARISON: CT abdomen pelvis 05/27/2020 TECHNIQUE: Multidetector volumetric images were obtained from the superior aspect of the liver through the pubic symphysis following administration 85 mL of Omnipaque 350 intravenous contrast. Sagittal and coronal reformatted images were obtained on the technologist's workstation. Oral contrast: No This CT examination was performed using dose optimization techniques as appropriate, variously including the following: *Automated exposure control *Adjustment of mA and/or kV according to patient size (this includes techniques or standardized protocols for targeted exams where dose is matched to indication/reason for exam; i.e. extremities or head) *Use of iterative reconstruction technique DLP: 614 mGy-cm FINDINGS: LUNG BASES: The visualized lung bases are unremarkable. LIVER, GALLBLADDER, AND BILIARY TREE: The liver is normal in size, shape, and attenuation. No focal hepatic lesion or biliary ductal dilatation is present. The gallbladder is unremarkable with no evidence of radiopaque gallstones, gallbladder wall thickening, or obvious pericholecystic inflammatory changes. PANCREAS: Unremarkable. SPLEEN: Unremarkable. ADRENAL GLANDS: Unremarkable. KIDNEYS AND URETERS: The kidneys are normal in size, shape, and attenuation. No hydronephrosis, hydroureter, or calculi seen. No perinephric stranding. BLADDER: Unremarkable. GASTROINTESTINAL TRACT: There is a surgical suture line involving small bowel loops in the left lower quadrant. This likely is transition point for a small bowel obstruction. There are dilated small bowel loops up to this point. The small bowel loops distally are decompressed. There is no edema of the bowel wall. No air in the bowel wall. Surgical suture line at the tip of cecum from prior appendectomy. Moderate volume of scattered stool in the colon. Compared to the CAT scan of 04/13/2020. Degree of distention of small bowel loops is similar. The transition point is similar. ABDOMINAL WALL: No significant hernia is appreciated. LYMPH NODES: Normal. VASCULAR: Unremarkable. PELVIC VISCERA: Unremarkable. OSSEOUS STRUCTURES: Unremarkable. CT/CT abdomen pelvis w con IMPRESSION: Small bowel obstruction, likely transition point at an anastomotic site in the left lower quadrant. Severity of the bowel obstruction is similar to prior CAT scan 04/13/2020. Chest x-ray: Attestation: I personally reviewed and interpreted this imaging study as follows: Radiologist's impression: EXAMINATION: XR CHEST CLINICAL INFORMATION: NG tube placement confirmation COMPARISON: 05/27/2020 TECHNIQUE: Frontal view of the chest was obtained. FINDINGS: Enteric tube courses into the stomach. Lung volumes are symmetric. No focal consolidation is seen. No appreciable pneumothorax, though the lung apices are not fully included in the [id number]. No significant pleural effusion or overt pulmonary edema. The cardiomediastinal contour is unremarkable. No acute osseous findings are seen. Excreted contrast is noted in the pelvicalyceal systems of the kidneys. XR/XR chest 1V IMPRESSION: Enteric tube courses into the stomach. Critical Care Time Critical Care Time Critical Care Time: Yes Total Critical Care Time: 45 Attestation: I have personally provided critical care time exclusive of time spent on separately billable procedures. Time includes review of laboratory data, radiology results, discussion with consultants, and monitoring for potential decompensation. Interventions were performed as documented. Discharge Plan Discharge Clinical Impression: Small bowel obstruction Crohn's disease Qualifiers: Gastrointestinal tract location: small intestine Digestive disease complication type: with intestinal obstruction Qualified Code(s): K50.012 - Crohn's disease of small intestine with intestinal obstruction Patient Disposition: Admitted As Inpatient Interventions: Admission Worksheet (ED) Last Done: 06/28/20 04:04 Discharge Date/Time: 06/28/20 04:04 [facility] Past Medical History Attestation statement: The following information was validated with the patient. Source: old records reviewed Medical History (Updated 06/28/20 @ 01:04 by Kathryn Rowe NP) Acute Crohn's disease Anxiety Crohn's disease SBO (small bowel obstruction) Small bowel obstruction Surgical History History of bowel resection History of bowel resection History of laparotomy Hx of appendectomy Social History Social History Household Members: Family Housing: House Alcohol intake: never Smoking Status: Never smoker Second Hand Smoke Exposure: No Use of substances other than those prescribed or required for medical reasons: No Advance Directives: No Advance Directives Information Provided: Yes service: No Current occupational status: employed
--- NOTE | 2020-06-28 01:20 | PC.NURSE ---
Second liter of IVF hung by GRINDER MACHINE SETTER, awaiting order.
[2020-06-28] MEDS: Morphine Sulfate 4 MG/ML CARTRIDGE IVPUSH ×5 (01:59→22:35)
[2020-06-28] MEDS: Dextrose 5 % and Lactated Ring 1,000 ML 125 ML IVCONT ×3 (02:02→17:37)
--- NOTE | 2020-06-28 02:07 | PC.NURSE ---
Covid swab obtained and sent for admission. Pt requesting pain medication for 8/10 pain to abdomen. Pt medicated with PRN Morphine, denies nausea at this time. IVF infusing per MAR. Pt provided with pilows and a blanket per request. VSS, pt aware of plan to admit, awaiting bed assignment. Continue to monitor.
[2020-06-28 02:15] LABS: COVID-19 Test Negative (Negative)
--- NOTE | 2020-06-28 03:14 | PC.NURSE ---
This RN calling [facility], [facility] not answering the phone at this time. Plan to call back.
--- NOTE | 2020-06-28 03:43 | PC.NURSE ---
Report given to C RN. Pt sleeping in bed, awaiting transport to floor.
[2020-06-28 04:56] LABS: MANUAL DIFF FLAG NO
[2020-06-28 05:01] LABS: Basophils Percent Auto 0.2 % (0-2); Eosinophils Absolute Auto 0.1 X10*3/uL (0.0-0.4); Hematocrit 38.5 % (42-52); Hemoglobin 12.5 g/dl (14.0-18.0); Imm Gran Abs Auto 0.01 X10*3/uL (0.00-0.03); Imm Gran Pct Auto 0.2 % (0.0-0.4); Lymphocytes Absolute Auto 1.3 X10*3/uL (1.2-4.9); Mean Corpuscular HGB Conc 32.5 g/dl (31.0-36.0); Mean Corpuscular Volume 92.5 fL (80-98); Mean Platelet Volume 10.9 fL (9.4-12.4); Monocytes Absolute Auto 0.8 X10*3/uL (0.1-1.2); Monocytes Percent Auto 14.5 % (2-11); Neutrophils Absolute Auto 3.1 X10*3/uL (2.0-8.3); Neutrophils Percent Auto 59.1 % (45-73); Platelet Count 195 X10*3/uL (160-400); Red Blood Count 4.16 X10*6/uL (4.60-5.80); Red Cell Distribution Width 12.2 % (11.0-16.0); White Blood Count 5.2 X10*3/uL (4.8-10.8)
[2020-06-28 05:51] LABS: Anion Gap 11 (12-20); Blood Urea Nitrogen 18 mg/dL (9-16); Calcium 8.3 mg/dL (8.4-10.2); Carbon Dioxide 26 mmol/L (22-29); Chloride 108 mmol/L (96-108); Creatinine Clr Calc Pharmacy 102.5; Estimated Glomerular Filt Rate > 60; Glucose Random 120 mg/dL (60-115); Potassium 4.1 mmol/L (3.3-5.1); Sodium 141 mmol/L (135-145)
--- NOTE | 2020-06-28 07:20 | PM.HPGS ---
History of Present Illness History of Present Illness Date of Service: 06/28/20 Chief complaint: SMALL BOWEL OBSTRUCTION Narrative: Justin Jorge is a 40 year old male patient well known to the surgical service with a previous history of Crohn's disease status post ileocolectomy and numerous previous admissions for small bowel obstruction. His most recent admission was in April 2020 for similar symptoms. He presented to the emergency department last evening after developing abdominal pain at approximately 18:00 on 06/27/2020. Pain was mainly located in the lower abdomen but was not associated with nausea, vomiting, fever, or chills. His symptoms were similar to previous episodes of small-bowel obstruction the free presented to the emergency department for further evaluation. In the emergency department he was noted to be tender throughout the lower abdomen. A CT of the abdomen and pelvis again revealed dilated small bowel suggestive of a small-bowel obstruction with decompressed colon. Patient had recently undergone an MR enterography which did indicate his anastomosis in the right lower quadrant was open without evidence of stricture. The patient is followed by Dr. James from Gastroenterology for his Crohn's disease. Review of Systems Constitutional: Constitutional: Denies chills and Denies fever(s) Cardiovascular: Cardiovascular: Denies chest pain, Denies dyspnea and Denies dyspnea on exertion Respiratory: Respiratory: Denies cough, Denies dyspnea and Denies dyspnea on exertion Gastrointestinal: Gastrointestinal: Reports abdominal pain, Reports bloating, Denies hematochezia, Denies change in bowel habits, Reports GI cramping, Denies nausea and Denies vomiting Genitourinary: Genitourinary: Denies hematuria and Denies difficulty urinating Musculoskeletal: Musculoskeletal: Denies back pain and Denies limited range of motion Neurologic: Denies focal weakness and Denies convulsions Psychiatric: Psychiatric: Denies depression and Denies mood swings PMF Past Medical History Medical History Acute Crohn's disease Anxiety Crohn's disease SBO (small bowel obstruction) Small bowel obstruction Surgical History Surgical History History of bowel resection History of bowel resection History of laparotomy Hx of appendectomy Social History Social History Household Members: Family Housing: House Do you presently have visiting nurse or other home services: No Alcohol intake: never Smoking Status: Never smoker Second Hand Smoke Exposure: No Use of substances other than those prescribed or required for medical reasons: No Currently Displaying Signs/Symptoms of Drug Intoxication Withdrawal: No Have you been hit, kicked, punched, or otherwise hurt by someone within the past year? If so, by whom?: No Do you feel safe in your current relationship?: Yes Is there a partner from a previous relationship who is making you feel unsafe now?: No Are you made to feel afraid or neglected: No Advance Directives: No Advance Directives Information Provided: Yes Do you have thoughts of harming others: None Do you have a plan to hurt others: No Plan Recently lost weight without trying: No service: Yes Current occupational status: retired [employer] Allergies Allergy/AdvReac Type Severity Reaction Status Date / Time Penicillins Allergy Mild RASH Verified 06/27/20 21:50 penicillin V Allergy Unknown rash Verified 06/27/20 21:50 Active Medications: Current Medications Generic Name Dose Route Start Last Admin Trade Name Freq PRN Reason Stop Dose Admin Acetaminophen 650 mg 06/28/20 01:42 Acetaminophen 325 Mg Tablet PO Q6H PRN Pain, Mild (Pain Scale 1-3) Azathioprine 300 mg 06/28/20 09:00 Azathioprine 50 Mg Tablet PO DAILY DEAN Dextrose/Lactated Ringer's 1,000 mls @ 125 mls/hr 06/28/20 01:42 06/28/20 02:02 D5lr IVCONT 125 mls/hr .Q8H DEAN Administration Lorazepam 1 mg 06/28/20 01:42 Lorazepam 1 Mg Tablet PO BID PRN Anxiety Morphine Sulfate 4 mg 06/28/20 01:42 06/28/20 06:46 Morphine Sulfate 4 Mg/Ml Cartridge IVPUSH 4 mg Q4H PRN Administration Pain, Severe (Pain Scale 7-10) Multi-Ingred Medicated Throat [place] 1 spray 06/28/20 06:57 Throat [place], Medicated 20 Ml Bottle MUCOUS MEM Q2H PRN Sore Throat Non-Formulary Medication 90 mg 06/28/20 01:42 Ustekinumab SUBCUT Q4W DEAN Ondansetron HCl 4 mg 06/28/20 01:42 Ondansetron Hcl 4 Mg/2 Ml Vial IVPUSH Q8H PRN Nausea and Vomiting Oxycodone HCl 5 mg 06/28/20 01:42 Oxycodone Hcl Immed Release 5 Mg Tablet PO Q6H PRN Pain, Moderate (Pain Scale 4-6 Sodium Chloride 3 ml 06/28/20 08:00 0.9 % Sodium Chloride Flush 3 Ml Syringe IVFLUSH QSHIFT [facility] Zolpidem Tartrate 10 mg 06/28/20 01:42 Zolpidem Tartrate 5 Mg Tablet PO BEDTIME PRN Sleep Home Medications Medication Instructions Recorded Confirmed Last Taken Type Stelara 90 mg SUBCUT Q4W 04/13/20 06/28/20 06/11/20 History azathioprine 300 mg PO DAILY 04/13/20 06/28/20 06/27/20 08:00 History lorazepam 1 mg PO BID PRN 04/13/20 06/28/20 06/25/20 History zolpidem 10 mg PO BEDTIME PRN 04/13/20 06/28/20 06/26/20 22:00 History Physical Exam Vital Signs: Vital Signs: Last Vital Signs Temp 98.7 F 06/28/20 04:49 Pulse 52 06/28/20 04:49 Resp 20 06/28/20 06:46 BP 116/69 06/28/20 04:49 Pulse Ox 100 06/28/20 04:49 Body Mass Index 26.4 Const: General: cooperative, healthy appearing, no acute distress, well developed, alert and awake Orientation/consciousness: patient oriented x3 Eyes: Sclerae: sclerae normal EOM: EOMs intact bilaterally Neck: Neck: Yes normal visual inspection, Yes full ROM and Yes no JVD Resp: Effort & Inspection: normal respiratory effort, no stridor and not tachypneic Auscultation: no rhonchi and no wheezes Cardio: Jugular venous distension: no JVD Rate: regular rate Rhythm: regular rhythm GI: Inspection: Yes normal to inspection Palpation (GI): Firmness to palpation present (GI), Tenderness to palpation present (GI), no guarding, not rigid and hepatosplenomegaly present Percussion: Yes tympanic to percussion Rectal Exam - Male: Yes deferred Skin: General skin exam: no rashes or lesions noted and dry skin Wounds: no wounds Neuro: General: patient oriented x3 Cognition (Neuro): normal cognition Extrem: General: Yes no clubbing, cyanosis or edema Results Results Labs: Short CBC 06/27/20 06/28/20 Range/Units 21:53 04:29 WBC 6.6 5.2 (4.8-10.8) X10*3/uL Hgb 14.4 12.5 L (14.0-18.0) g/dl Hct 42.8 38.5 L (42-52) % Plt Count 224 195 (160-400) X10*3/uL BMP 06/27/20 06/28/20 21:53 04:29 Sodium 139 141 Potassium 4.1 4.1 Chloride 102 108 Carbon Dioxide 28 26 BUN 19 H D 18 H Creatinine 1.24 1.01 Calcium 9.9 D 8.3 L D Liver Function 06/27/20 Range/Units 21:53 Total Bilirubin 0.5 (0.0-1.0) mg/dL AST 21 (5-37) U/L ALT 12 (0-40) U/L Alkaline Phosphatase 54 (39-117) U/L Albumin 4.5 (3.5-5.0) g/dL Assessment and Plan (1) Crohn's disease: Qualifiers: Digestive disease complication type: with intestinal obstruction Gastrointestinal tract location: small intestine Qualified Code(s): K50.012 - Crohn's disease of small intestine with intestinal obstruction Status: Acute 40-year-old male patient with prior history of small-bowel obstruction following bowel surgery for Crohn's disease. He once again presents with symptoms consistent with a small-bowel obstruction, confirmed on CT of the abdomen and pelvis. A nasogastric tube was placed in the emergency department and in place to intermittent suction. Will keep him NPO with IV fluids. In the past he has resolved quickly with non operative measures. I will consult Dr. James for a Gastroenterology consultation. The patient expressed understanding and agrees with the plan. (2) Small bowel obstruction: Status: Acute Procedures Date of Service Date of Service: 06/28/20
[2020-06-28] MEDS: azaTHIOprine 50 MG TABLET 300 MG PO (08:19)
[2020-06-28] MEDS: Acetaminophen 325 MG TABLET 650 MG PO (08:19)
--- NOTE | 2020-06-28 10:48 | CONS_ITS ---
DATE OF SERVICE: 06/28/2020 REFERRING PHYSICIAN: Igor Peters MD REASON FOR CONSULTATION: Crohn disease and small-bowel obstruction. HISTORY OF PRESENT ILLNESS: The patient is a 40-year-old man with a history of Crohn disease and multiple admissions for small-bowel obstructions in the past. He was admitted to the hospital after presenting to the emergency room with abdominal pain and a picture consistent with his previous small-bowel obstructions. He has a history of Crohn disease diagnosed in 2004 with involvement of the small intestine and perianal area with complications including small-bowel obstructions and surgery. Current therapy includes Stelara every 4 weeks and azathioprine 300 mg daily. He was recently hospitalized twice in the past 3 months with similar symptoms that responded to treatment with NG suction. He presented to the emergency room yesterday with symptoms of abdominal pain and vomiting, which began the day of admission after eating. There was no hematemesis or melena. He denies any fevers or chills. He was evaluated in the emergency department with laboratory studies and CT scanning, which are reviewed. The CT scan is interpreted as showing a small-bowel obstruction with a transition point at the anastomotic site in the left lower quadrant similar to our prior CT in March. He was treated with NG suction overnight and feels somewhat better today. NG suction has been about 400 mL overnight since the tube was inserted. He recently underwent MR enteroscopy at [facility] and pending these results may require small-bowel enteroscopy. PAST MEDICAL HISTORY: 1. Crohn disease as above. 2. Previous small bowel resection. 3. Appendectomy. CURRENT MEDICATIONS: Current medication list is reviewed in the chart. ALLERGIES: PENICILLIN. FAMILY HISTORY: Positive for irritable bowel syndrome. SOCIAL HISTORY: There is no tobacco or alcohol use. 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 REVIEW OF SYSTEMS: SKIN: No pruritus. HEENT: Negative. CARDIOPULMONARY: No shortness of breath or chest pain. GASTROINTESTINAL: As above. GENITOURINARY: Negative. NEUROPSYCHIATRIC: Negative. PHYSICAL EXAMINATION: GENERAL: Shows a pleasant male, in no acute distress. VITAL SIGNS: Reviewed in the electronic medical record and are stable. SKIN: Anicteric. HEENT: Shows no scleral icterus. NECK: Without lymphadenopathy or thyromegaly. LUNGS: Clear. HEART: Shows a regular rate and rhythm. S1, S2. No murmur. ABDOMEN: Soft without focal masses or tenderness. Bowel sounds are present. No organomegaly is noted. EXTREMITIES: Without edema. DIAGNOSTIC DATA: Laboratory studies and CT scan are reviewed. IMPRESSION: Small-bowel obstruction in the setting of Crohn disease. Based on his CT scan and verbal report of his MR enteroscopy, this appears to be more of a mechanical type of small-bowel obstruction as opposed due to inflammation from Crohn disease. We discussed this today. I would recommend treating him with NG suction as you are doing and this can be clamped and removed as he improves and his diet can be advanced. I would not recommend steroids at this time and he will need to arrange followup in [place] for possible small bowel enteroscopy, depending on the results of the MR, we discussed this today. I would recommend he continue Stelara and azathioprine. Thanks for asking me to see him. I will follow him in the hospital with you. MD PEACE Brothers/MIRANDA / [id number]
--- NOTE | 2020-06-28 13:26 | PC.NURSE ---
NG tube removed per Dr. Peters at 1320
[2020-06-28] MEDS: oxyCODONE HCl Immed Release 5 MG TABLET PO (19:38)
[2020-06-28] MEDS: LORazepam 1 MG TABLET PO (22:30)
[2020-06-29] MEDS: Dextrose 5 % and Lactated Ring 1,000 ML 125 ML IVCONT (01:53)
[2020-06-29 04:00] VITALS: RESP 18
[2020-06-29 08:00] VITALS: BP 120/68; PULSE 60; RESP 18; TEMP 37.4; O2SAT 99
[2020-06-29] MEDS: azaTHIOprine 50 MG TABLET 300 MG PO (08:21)
--- NOTE | 2020-06-29 09:27 | P.PNGS_ITS ---
Subjective Subjective Date of Service: 06/29/20 <Karissa Purdy PA-C - Last Filed: 06/29/20 09:32> 06/29/20 <Igor Peters MD - Last Filed: 06/29/20 13:42> Interval history: NGT removed yesterday afternoon and started on clear liquids. Continues to feel much better. Tolerating clears and feels hungry. Passing flatus. <Karissa Purdy PA-C - Last Filed: 06/29/20 09:32> Physical Exam Vital Signs: Vital Signs: Last Vital Signs Temp 99.4 F 06/29/20 08:00 Pulse 60 06/29/20 08:00 Resp 18 06/29/20 08:00 BP 120/68 06/29/20 08:00 Pulse Ox 99 06/29/20 08:00 Body Mass Index 26.4 <Karissa Purdy PA-C - Last Filed: 06/29/20 09:32> Const: General: comfortable, no acute distress and alert <Karissa Purdy PA-C - Last Filed: 06/29/20 09:32> Orientation/consciousness: patient oriented x3 <Karissa Purdy PA-C - Last Filed: 06/29/20 09:32> Resp: Effort & Inspection: normal respiratory effort <Karissa Purdy PA-C - Last Filed: 06/29/20 09:32> GI: Inspection: No distended <Karissa Purdy PA-C - Last Filed: 06/29/20 09:32> Palpation (GI): Soft to palpation, nontender and no guarding <Karissa Purdy PA-C - Last Filed: 06/29/20 09:32> Percussion: Yes normal to percussion <MARGRET Taylor Last Filed: 06/29/20 09:32> Skin: General skin exam: no rashes or lesions noted <Karissa Purdy PA-C - Last Filed: 06/29/20 09:32> Neuro: General: patient oriented x3 <MARGRET Taylor Last Filed: 06/29/20 09:32> Extrem: General: Yes no clubbing, cyanosis or edema <Karissa Purdy PA-C - Last Filed: 06/29/20 09:32> Progress Note: A&P Assessment and plan (1) Crohn's disease: Status: Acute <Karissa Purdy PA-C - Last Filed: 06/29/20 09:32> Assessment and Plan: Seen by GI- SBO felt to be mechanical as opposed due to inflammation from Crohn disease. Hold off on steroids. F/u in [place] for possible small bowel enteroscopy, depending on the formal results of the MR. Faustina Lin and azathioprine. <Karissa Purdy PA-C - Last Filed: 06/29/20 09:32> (2) Small bowel obstruction: Status: Acute <Karissa Purdy PA-C - Last Filed: 06/29/20 09:32> Assessment and Plan: Resolved, tolerating clears. VSS. Abd exam benign. Will advance to solid diet. If tolerating, d/c to home later today. Patient comfortable with plan. <Karissa Purdy PA-C - Last Filed: 06/29/20 09:32> Agree with the above assessment and plan. Overall patient is much improved tolerating clear liquids without nausea or vomiting. Will advance diet to regular low residue diet. Possible discharge later today. <Igor Peters MD - Last Filed: 06/29/20 13:42> Fall Risk Details Current Medications: Current Medications Generic Name Dose Route Start Last Admin Trade Name Freq PRN Reason Stop Dose Admin Acetaminophen 650 mg 06/28/20 01:42 06/28/20 08:19 Acetaminophen 325 Mg Tablet PO 650 mg Q6H PRN Administration Pain, Mild (Pain Scale 1-3) Azathioprine 300 mg 06/28/20 09:00 06/29/20 08:21 Azathioprine 50 Mg Tablet PO 300 mg DAILY DEAN Administration Dextrose/Lactated Ringer's 1,000 mls @ 125 mls/hr 06/28/20 01:42 06/29/20 01:53 D5lr IVCONT 125 mls/hr .Q8H DEAN Administration Lorazepam 1 mg 06/28/20 01:42 06/28/20 22:30 Lorazepam 1 Mg Tablet PO 1 mg BID PRN Administration Anxiety Morphine Sulfate 4 mg 06/28/20 01:42 06/28/20 22:35 Morphine Sulfate 4 Mg/Ml Cartridge IVPUSH 4 mg Q4H PRN Administration Pain, Severe (Pain Scale 7-10) Multi-Ingred Medicated Throat [place] 1 spray 06/28/20 06:57 06/28/20 08:22 Throat [place], Medicated 20 Ml Bottle MUCOUS MEM 1 spray Q2H PRN Administration Sore Throat Ondansetron HCl 4 mg 06/28/20 01:42 Ondansetron Hcl 4 Mg/2 Ml Vial IVPUSH Q8H PRN Nausea and Vomiting Oxycodone HCl 5 mg 06/28/20 01:42 06/28/20 19:38 Oxycodone Hcl Immed Release 5 Mg Tablet PO 5 mg Q6H PRN Administration Pain, Moderate (Pain Scale 4-6 Sodium Chloride 3 ml 06/28/20 08:00 06/29/20 07:42 0.9 % Sodium Chloride Flush 3 Ml Syringe IVFLUSH Not Given QSHIFT [facility] Zolpidem Tartrate 10 mg 06/28/20 01:42 Zolpidem Tartrate 5 Mg Tablet PO BEDTIME PRN Sleep <Karissa Purdy PA-C - Last Filed: 06/29/20 09:32> Time Spent With Patient Time: Total time spent is greater than 50% in coordination of care (as documented) at patient's floor/unit and/or counseling patient: <Karissa Purdy PA-C - Last Filed: 06/29/20 09:32> Time with patient: less than 15 minutes <MARGRET Taylor Last Filed: 06/29/20 09:32> Procedures Date of Service Date of Service: 06/29/20 <Karissa Purdy PA-C - Last Filed: 06/29/20 09:32>
--- NOTE | 2020-06-29 11:13 | PC.NURSE ---
PT TOLERATED BREAKFAST WITHOUT PAIN OR N/V. AWAITING DISCHARGE HOME TODAY
[2020-06-29 11:26] VITALS: BP 148/86; PULSE 54; RESP 18; TEMP 36.7; O2SAT 99
--- NOTE | 2020-06-29 11:52 | MHC.CM.PN ---
DP Male40 DX SBO DP is home no services with private transport. NG removed doris diet advancing diet. CM will follow.
--- NOTE | 2020-06-29 12:42 | P.DS_ITS ---
DS: Providers Provider Date of Service: 06/29/20 Date of admission: 06/28/20 01:42 Primary care physician: Unknown Physician Consults: 06/28/20 07:17 Consult to Gastroenterology Routine Consulting Provider: Broderick James Reason for consultation: SBO, Crohn's Disease Has provider been notified: No DS: Diagnosis Discharge Diagnosis (1) Crohn's disease: Status: Acute (2) Small bowel obstruction: Status: Acute DS: Medications Discharge Medications Home Medications: Home Medications Medication Instructions Recorded Confirmed Stelara 90 mg SUBCUT Q4W 04/13/20 06/28/20 azathioprine 300 mg PO DAILY 04/13/20 06/28/20 lorazepam 1 mg PO BID PRN 04/13/20 06/28/20 zolpidem 10 mg PO BEDTIME PRN 04/13/20 06/28/20 DS: Summary Hospital Course Hospital Course: BRIEF HPI: Justin Jorge is a 40 year old male patient well known to the surgical service with a previous history of Crohn's disease status post ileocolectomy and numerous previous admissions for small bowel obstruction. His most recent admission was in April 2020 for similar symptoms. He presented to the emergency department last evening after developing abdominal pain at approximately 18:00 on 06/27/2020. Pain was mainly located in the lower abdomen but was not associated with nausea, vomiting, fever, or chills. His symptoms were similar to previous episodes of small-bowel obstruction and therefore presented to the emergency department for further evaluation. In the emergency department, he was noted to be tender throughout the lower abdomen. A CT of the abdomen and pelvis again revealed dilated small bowel suggestive of a small- bowel obstruction with decompressed colon. Patient had recently undergone an MR enterography which did indicate his anastomosis in the right lower quadrant was open without evidence of stricture. HOSPITAL COURSE: The patient was admitted to the surgical service under Dr. Igor Peters for further treatment of the SBO. A NGT was placed in the emergency department to intermittent suction and this was continued. Will keep him NPO with IV fluids. Dr. James of Gastroenterology was consulted. He was seen by GI who thought the SBO was likely secondary to adhesions versus inflammatory and therefore recommended to continue supportive measures and hold off on steroids. The patient was reassessed later in the day and felt improved and began to pass flatus. The NGT had little output and was removed. He was advanced to a clear liquid diet. The following day, he was asymptomatic and tolerating the clears and was advanced to a solid diet. He was reassessed later that day and was tolerating a solid diet without recurrent abdominal pain, nausea or vomiting. He felt ready for discharge to home. The patient was discharged to home on 06/29/20 in stable condition. Status at Discharge Functional status at discharge: independent ambulation Overall status at discharge: patient is back to baseline Time Spent with Patient Time attestation: Total time spent providing and/or coordinating discharge services: Discharge coordination time: Less than 30 minutes Physical Exam Vital Signs: Vital Signs: Last Vital Signs Temp 98.1 F 06/29/20 11:26 Pulse 54 06/29/20 11:26 Resp 18 06/29/20 11:26 BP 148/86 H 06/29/20 11:26 Pulse Ox 99 06/29/20 11:26 Body Mass Index 26.4 Const: General: healthy appearing, comfortable, no acute distress and alert Orientation/consciousness: patient oriented x3 Eyes: Sclerae: sclerae normal Resp: Effort & Inspection: normal respiratory effort Cardio: Rate: regular rate GI: Inspection: No distended Palpation (GI): Soft to palpation, nontender, no guarding and not rigid Percussion: Yes normal to percussion Skin: General skin exam: no rashes or lesions noted Neuro: General: patient oriented x3 Extrem: General: Yes no clubbing, cyanosis or edema Discharge Plan Discharge Patient Disposition: Home, Self-Care Referrals: Physician,Unknown [Primary Care Provider] - Discharge Medications: Continued azathioprine 50 mg Tablet 300 mg PO DAILY RF: 0 lorazepam 1 mg Tablet 1 mg PO BID PRN (Reason: Anxiety) RF: 0 zolpidem 10 mg Tablet 10 mg PO BEDTIME PRN (Reason: Sleep) RF: 0 Stelara 90 mg/mL Syringe 90 mg SUBCUT Q4W RF: 0 Discharge Orders: Discharge Order (Routine); Ordered 06/29/20 Ordered By: Karissa Purdy Diet: advance to usual diet Activity on Discharge: As tolerated Stand Alone Forms: Patient Portal Discharge page Care Plan Goals: Return to baseline health Health Concerns: Crohns disease, SBO Plan of Treatment: Discharge to home
--- NOTE | 2020-06-29 13:15 | MHC.CM.PN ---
Male 40 DX SBO. Pt is discharged to home no services. He has arranged for transportation.
== END 2020-06-29 13:31 | disposition home or self-care (01) | DRG 387 ==
LOC: HO.ED 06-28 01:04 → HO.IMC 06-28 03:10
PROVIDERS: Nurse Practitioner Family; Surgery; Admitting Provider Hospitalist; Emergency Provider Emergency Medicine; PCP Internal Medicine; Visit Provider Hospitalist
DX: K50.912 Crohn's disease, unspecified, with intestinal obstruction (principal); Z20.822 Contact with and (suspected) exposure to COVID-19; Z88.0 Allergy status to penicillin; Z79.899 Other long term (current) drug therapy
CPT/HCPCS: 36415; 71045; 74177; 80048; 80053; 85025; 87635; 96374; 96375; 96376; 99285; J1170; J2270; Q9967

== ENCOUNTER 2020-08-27 10:47 | Outpatient (REF) | payer OTHER, SELFPAY ==
--- NOTE | ~2020-08-27 | XR_ITS ---
EXAMINATION: XR ABDOMEN KUB CLINICAL INDICATION: Check camera location COMPARISON: Previous CT of the abdomen and pelvis June 2020 TECHNIQUE: AP supine view of the pelvis and abdomen. FINDINGS: There is a radiopaque foreign body consistent with a camera projecting over the left side of the sacrum.. There are distended loops of bowel seen in the pelvis. Bowel appears less dilated than June 2020 exam.. There is no evidence of free air. No calcifications are seen. There are surgical clips seen in the right lower quadrant. Bony structures are unremarkable. XR/XR abdomen 1V IMPRESSION: Camera seen in the left lower quadrant/upper pelvis overlying the left side of the sacrum. There are distended loops of bowel in the pelvis. Bowel appears less dilated than previous CT scan June 2020
== END 2020-08-27 10:48 | disposition home or self-care (01) ==
LOC: HO.XRAY 10:47
PROVIDERS: PCP Internal Medicine; Visit Provider Internal Medicine
DX: K50.912 Crohn's disease, unspecified, with intestinal obstruction (principal)
CPT/HCPCS: 74018

== ENCOUNTER 2021-11-01 15:41 | Outpatient (REF) | payer OTHER, SELFPAY ==
--- NOTE | ~2021-11-01 | XR_ITS ---
EXAMINATION: XR ABDOMEN COMPLETE CLINICAL INDICATION: Abdominal pain COMPARISON: Previous x-ray August 2020 TECHNIQUE: 2 views of the abdomen. FINDINGS: There is stool throughout the colon. There are no dilated loops of bowel to suggest obstruction. There are no calcifications. There is a surgical clip in the right lower quadrant. Bony structures are unremarkable. XR/XR abdomen min 2V IMPRESSION: Stool throughout the colon. No evidence of obstruction.
[2021-11-01 16:51] LABS: MANUAL DIFF FLAG NO
[2021-11-01 16:59] LABS: Basophils Percent Auto 0.4 % (0-2); Eosinophils Absolute Auto 0.2 X10*3/uL (0.0-0.4); Eosinophils Percent Auto 2.2 % (0-4); Hematocrit 44.5 % (42.0-52.0); Hemoglobin 14.7 g/dl (14.0-18.0); Imm Gran Abs Auto 0.02 X10*3/uL (0.00-0.03); Imm Gran Pct Auto 0.3 % (0.0-0.4); Lymphocytes Absolute Auto 2.1 X10*3/uL (1.2-4.9); Lymphocytes Percent Auto 29.1 % (20-40); Mean Corpuscular Hemoglobin 29.2 pg (27.0-33.0); Mean Corpuscular Volume 88.3 fL (80.0-98.0); Mean Platelet Volume 9.8 fL (9.4-12.4); Monocytes Absolute Auto 0.8 X10*3/uL (0.1-1.2); Monocytes Percent Auto 11.3 % (2-11); Neutrophils Absolute Auto 4.2 x10*3/uL (2.0-8.3); Neutrophils Percent Auto 56.7 % (45-73); Platelet Count 237 X10*3/uL (160-400); Red Blood Count 5.04 X10*6/uL (4.60-5.80); White Blood Count 7.4 X10*3/uL (4.8-10.8)
[2021-11-01 17:20] LABS: Alanine Aminotransferase 19 U/L (0-40); Albumin Level 4.4 g/dL (3.5-5.0); Alkaline Phosphatase 50 U/L (39-117); Amylase 58 U/L (28-100); Aspartate Amino Transferase 25 U/L (5-37); Bilirubin Direct 0.2 mg/dL (0.0-0.5); Bilirubin Total 0.5 mg/dL (0.0-1.0); C Reactive Protein 0.15 mg/dL (< or = 0.50); Lipase 39 U/L (8-78); Total Protein 7.3 g/dL (6.5-8.0)
[2021-11-01 17:59] LABS: Erythrocyte Sedimentation Rate 2 MM/HR (0-15)
== END 2021-11-01 15:42 | disposition home or self-care (01) ==
LOC: HO.LAB 15:41
PROVIDERS: PCP Internal Medicine; Visit Provider Internal Medicine
DX: K50.812 Crohn's disease of both small and large intestine with intestinal obstruction (principal); R10.13 Epigastric pain
CPT/HCPCS: 36415; 74019; 80076; 82150; 83690; 85025; 85652; 86140

== ENCOUNTER 2022-02-16 23:52 | Inpatient (IN) | payer OTHER, SELFPAY ==
--- NOTE | ~2022-02-16 | XR_ITS ---
EXAMINATION: XR CHEST CLINICAL INFORMATION: Tube placement COMPARISON: 06/27/2020 TECHNIQUE: Frontal view of the chest was obtained. FINDINGS: Enteric tube terminates in the stomach. Normal symmetric lung volumes. No parenchymal consolidation. No pleural effusion. No pneumothorax. Cardiomediastinal silhouette and pulmonary vascularity are within normal limits. No acute osseous abnormalities. XR/XR chest 1V IMPRESSION: Enteric tube in stomach. No acute pulmonary findings.
--- NOTE | ~2022-02-16 | XR_ITS ---
EXAMINATION: XR ABDOMEN KUB CLINICAL INDICATION: Check nasogastric tube placement COMPARISON: Previous CT of the abdomen and pelvis from earlier the same day TECHNIQUE: AP view of the abdomen. FINDINGS: There is a nasogastric tube that projects over the proximal stomach. Small bowel and stomach appear less dilated. There is stool throughout the colon. No free air. No calcifications. Excreted contrast in the bladder. Mild degenerative changes at the hip joints. XR/XR abdomen 1V IMPRESSION: Nasogastric tube projects over proximal stomach.
--- NOTE | ~2022-02-16 | CT_ITS ---
EXAMINATION: CT ABDOMEN AND PELVIS WITH CONTRAST CLINICAL INFORMATION: Severe abdominal pain. History of obstructions. COMPARISON: 08/27/2020 TECHNIQUE: Multidetector volumetric images were obtained from the superior aspect of the liver through the pubic symphysis following administration 85 mL of Omnipaque 350 intravenous contrast. Sagittal and coronal reformatted images were obtained on the technologist's workstation. Oral contrast: No This CT examination was performed using dose optimization techniques as appropriate, variously including the following: *Automated exposure control *Adjustment of mA and/or kV according to patient size (this includes techniques or standardized protocols for targeted exams where dose is matched to indication/reason for exam; i.e. extremities or head) *Use of iterative reconstruction technique DLP: 607 mGy-cm FINDINGS: LUNG BASES: The visualized lung bases are unremarkable. LIVER, GALLBLADDER, AND BILIARY TREE: The liver is normal in size, shape, and attenuation. No focal hepatic lesion or biliary ductal dilatation is present. The gallbladder is unremarkable with no evidence of radiopaque gallstones, gallbladder wall thickening, or obvious pericholecystic inflammatory changes. PANCREAS: Unremarkable. SPLEEN: Unremarkable. ADRENAL GLANDS: Unremarkable. KIDNEYS AND URETERS: The kidneys are normal in size, shape, and attenuation. No hydronephrosis, hydroureter, or calculi seen. No perinephric stranding. BLADDER: Unremarkable. GASTROINTESTINAL TRACT: Again seen is a small bowel obstruction with multiple loops of dilated small bowel leading to a point of relative transition at the enteroenteric anastomosis within left pelvis. The extent of small bowel dilatation is slightly greater than that seen on the prior exam. Mild associated mesenteric edema. There are multiple loops of small bowel which appear tethered in the left mid abdomen and left lower quadrant, but similar to the prior exam. Stomach unremarkable. Colon unremarkable. Appendectomy. ABDOMINAL WALL: No significant hernia is appreciated. LYMPH NODES: Normal. VASCULAR: Unremarkable. PELVIC VISCERA: Unremarkable. OSSEOUS STRUCTURES: Unremarkable. CT/CT abdomen pelvis w IV con IMPRESSION: * Recrudescent small bowel obstruction with relative transition point at the patient's enteroenteric anastomosis within the left pelvis. The degree of small bowel dilatation upstream is slightly greater than on the prior exam. * No evidence of vascular compromise. * Mild associated mesenteric edema.
--- NOTE | 2022-02-17 00:23 | ED.ABDPAIN ---
HPI - Abdominal Pain General Chief Complaint: Abdominal Pain Stated Complaint: bowel obstruction Time Seen by Provider: 02/17/22 00:22 Source: patient Mode of arrival: ambulatory Limitations: no limitations History of Present Illness HPI narrative: ?42-year-old male with past medical history of Crohn's disease s/p ileocolectomy in September 2020 at [facility] and recurrent small-bowel obstructions (last 2020) presents with abdominal pain and inability to pass flatus since 1700 today.? States that feels like his prior episodes of small-bowel obstruction however pain is more severe pain is 10/10 constant.? He does not report any fevers, chills, last bowel movement was earlier today.? Denies chest pain or pressure, palpitations, shortness of breath, dysuria, hematuria, hematochezia, melena, and any other concerning symptoms. Upon history taking patient rolling around on the stretcher appears visibly uncomfortable. Related Data Home Medications Medication Instructions Recorded Confirmed ustekinumab 90 mg/mL subcutaneous 90 mg subcut Q4W 04/13/20 02/17/22 syringe (Stelara) Allergies Allergy/AdvReac Type Severity Reaction Status Date / Time Penicillins Allergy Mild RASH Verified 02/17/22 00:25 penicillin V Allergy Unknown rash Verified 02/17/22 00:25 Review of Systems Review of Systems Constitutional : No Weight loss, No Fever, No Chills, No Fatigue, No Malaise ENT/Mouth : No sore throat, No Rhinorrhea Eyes: No Eye Pain, No Swelling, No Redness Cardiovascular : No Chest Pain, No SOB, No Dyspnea on Exertion, No Orthopnea, No Edema, No Palpitations Respiratory : No Cough, No Sputum, No Wheezing Gastrointestinal : No Nausea, No Vomiting, No Diarrhea, No Constipation, + abdominal Pain, No Hematochezia, No Melena Genitourinary : No Dysuria, No Urinary Frequency, No Hematuria, Musculoskeletal : No joint pain, No Myalgias, No Joint Swelling Skin : No Skin Lesions, No rash Neuro : No Weakness, No Numbness, No Dizziness, No Headache All other systems reviewed and are negative Yes all other systems are reviewed and are negative PMFSH Past Medical History Attestation statement: The following information was validated with the patient. Source: old records reviewed and nursing notes reviewed Medical History Acute Crohn's disease Anxiety Crohn's disease SBO (small bowel obstruction) Small bowel obstruction Surgical History History of bowel resection History of bowel resection History of laparotomy Hx of appendectomy Social History Social History Household Members: Family Housing: House Do you presently have visiting nurse or other home services: No Alcohol intake: never Second Hand Smoke Exposure: No Advance Directives: No Advance Directives Information Provided: No service: Yes Current occupational status: retired Physical Exam ED Vital Signs: Vital Signs - 24 hr 02/17/22 00:25 Temperature 99.2 F Pulse Rate 98 Respiratory Rate 20 Blood Pressure 144/84 H Pulse Oximetry 97 Oxygen Delivery Method Room Air BMI result Body Mass Index 27.8 vss Appearance: Alert.? Oriented X3.? No acute distress.? Patient appears extremely uncomfortable Head: Normocephalic, atraumatic, no step-offs or deformities Eyes: Pupils equal, round and reactive to light.? ENT: Pharynx normal.? Neck: Normal inspection.? Neck supple.? CVS: Normal heart rate and rhythm.? Pulses normal.? Respiratory: No respiratory distress.? Breath sounds normal.? Abdomen: Abdomen distended, diffusely tender, hypoactive bowel sounds. Skin: Skin warm and dry.? Normal skin color.? Normal skin turgor.? Extremities: No lower extremity edema.? No calf ttp. 5/5 strength to bilateral upper and lower extremities Neuro: Oriented X 3.? No motor deficit.? No sensory deficit. CN 2-12 intact Course Reevaluation(s) Reevaluation #1: CBC appears to be within normal limits, chemistry within elevated BUN and creatinine, slightly higher than patient's baseline will hydrate. Lactic negative. Scan pending. Time: 01:21 Reevaluation #2: Spoke to Dr. Peters I suspect patient is having a small bowel obstruction based off CT scans, scan still pending. Plan is to place an NG tube in patient will be admitted to surgery. Time: 02:07 Reevaluation #3: CT of the abdomen pelvis showing small bowel obstruction with relative transposition point at the patient's enteroenteric anastomoses within the left pelvis. The degree of small bowel dilation upstream is greater than the 1 on previous exam. Patient will be admitted to the surgical team, order for NG tube placed. Plan is pain management, patient will be NPO, and be getting IV fluids. Time: 02:18 MDM - Abdominal Pain MDM Narrative Medical decision making narrative: 0024 42 year old male presents w/ severe abd pain and inability to pass flatus PE patient appears uncomfortable distended abdomen diffusely tender, hypoactive bowel sounds. Concerns for recurrent small bowel obstruction. Other differentials include acute abdomen, kidney stones. Plan at this time is to start a line, obtain basic labs, imaging. Will medicate morphine for pain give fluids. Medical Records Attestation: I reviewed the patient's medical records. Lab Data Attestation: I reviewed the patient's lab results. Result diagrams: 02/17/22 00:34 02/17/22 00:34 Labs: Lab Results 02/17/22 02/17/22 02/17/22 Range/Units 00:34 00:34 00:34 WBC 11.3 H (4.8-10.8) X10*3/uL RBC 5.45 (4.60-5.80) X10*6/uL Hgb 15.8 (14.0-18.0) g/dl Hct 47.6 (42.0-52.0) % MCV 87.3 (80.0-98.0) fL MCH 29.0 (27.0-33.0) pg MCHC 33.2 (31.0-36.0) g/dl RDW 12.8 (11.0-16.0) % Plt Count 284 (160-400) X10*3/uL MPV 10.0 (9.4-12.4) fL Immature Gran % (Auto) 0.3 (0.0-0.4) % Neut % (Auto) 67.5 (45-73) % Lymph % (Auto) 21.6 (20-40) % [place] % (Auto) 8.8 (2-11) % Eos % (Auto) 1.5 (0-4) % Baso % (Auto) 0.3 (0-2) % Lymph # (Auto) 2.4 (1.2-4.9) X10*3/uL [place] # (Auto) 1.0 (0.1-1.2) X10*3/uL Eos # (Auto) 0.2 (0.0-0.4) X10*3/uL Baso # (Auto) 0.0 (0.0-0.2) X10*3/uL Abs Immat Gran (auto) 0.03 (0.00-0.03) X10*3/uL Absolute Neuts (auto) 7.6 (2.0-8.3) x10*3/uL Absolute Nucleated RBC 0.000 (0.0-0.012) X10*3/uL Nucleated RBC % (auto) 0.0 (0.0-0.2) /100WBC Sodium 142 (135-145) mmol/L Potassium 3.9 (3.3-5.1) mmol/L Chloride 100 (96-108) mmol/L Carbon Dioxide 24 (22-29) mmol/L Anion Gap 22 H (12-20) BUN 20 H (9-16) mg/dL Creatinine 1.46 H (0.5-1.4) mg/dL Estim Creat Clear Calc 75.1 Estimated GFR 53 Random Glucose 102 (60-115) mg/dL Lactic Acid 1.7 (0.5-2.0) mmol/L Calcium 10.1 D (8.4-10.2) mg/dL Magnesium 2.3 (1.6-2.6) mg/dL Total Bilirubin 0.5 (0.0-1.0) mg/dL AST 26 (5-37) U/L ALT 19 (0-40) U/L Alkaline Phosphatase 53 (39-117) U/L Total Protein 8.2 H (6.5-8.0) g/dL Albumin 4.9 (3.5-5.0) g/dL Lipase 35 (8-78) U/L Critical Care Time Critical Care Time Critical Care Time: Yes Total Critical Care Time: 35 Attestation: I attest to this time spent taking care of the patient, obtaining history, physical, reviewing labs, imaging, speaking to my attending, speaking to specialist. Discharge Plan Discharge Clinical Impression: Small bowel obstruction, Abdominal pain, LIGIA (acute kidney injury) Patient Disposition: Still a Patient Prescriptions: No Action Stelara 90 mg/mL Syringe 90 mg SUBCUT Q4W
[2022-02-17 00:25] VITALS: BP 144/84; PULSE 98; RESP 20; TEMP 37.3; O2SAT 97; BMI 27.8
[2022-02-17] MEDS: 0.9 % Sodium Chloride 1,000 ML 999 ML IV ×4 (00:41→03:55)
[2022-02-17] MEDS: Morphine Sulfate 4 MG/ML CARTRIDGE IVPUSH (00:42)
[2022-02-17 00:44] LABS: Basophils Percent Auto 0.3 % (0-2); Eosinophils Absolute Auto 0.2 X10*3/uL (0.0-0.4); Eosinophils Percent Auto 1.5 % (0-4); Hematocrit 47.6 % (42.0-52.0); Hemoglobin 15.8 g/dl (14.0-18.0); Imm Gran Abs Auto 0.03 X10*3/uL (0.00-0.03); Imm Gran Pct Auto 0.3 % (0.0-0.4); Lymphocytes Absolute Auto 2.4 X10*3/uL (1.2-4.9); Lymphocytes Percent Auto 21.6 % (20-40); MANUAL DIFF FLAG NO; Mean Corpuscular HGB Conc 33.2 g/dl (31.0-36.0); Mean Corpuscular Volume 87.3 fL (80.0-98.0); Monocytes Percent Auto 8.8 % (2-11); Neutrophils Absolute Auto 7.6 x10*3/uL (2.0-8.3); Neutrophils Percent Auto 67.5 % (45-73); Platelet Count 284 X10*3/uL (160-400); Red Blood Count 5.45 X10*6/uL (4.60-5.80); Red Cell Distribution Width 12.8 % (11.0-16.0); White Blood Count 11.3 X10*3/uL (4.8-10.8)
--- NOTE | 2022-02-17 00:47 | PC.NURSE ---
pt a&ox3, unable to sit still in bed, reporting 10/10 abd pain, hx bowel obstructions, 18G IV placed right forearm by provider, labs drawn, medicated per provider order.
[2022-02-17 00:59] LABS: Lactic Acid 1.7 mmol/L (0.5-2.0)
[2022-02-17 01:05] LABS: Alanine Aminotransferase 19 U/L (0-40); Albumin Level 4.9 g/dL (3.5-5.0); Alkaline Phosphatase 53 U/L (39-117); Anion Gap 22 (12-20); Aspartate Amino Transferase 26 U/L (5-37); Bilirubin Total 0.5 mg/dL (0.0-1.0); Blood Urea Nitrogen 20 mg/dL (9-16); Calcium 10.1 mg/dL (8.4-10.2); Carbon Dioxide 24 mmol/L (22-29); Chloride 100 mmol/L (96-108); Creatinine Clr Calc Pharmacy 75.1; Estimated Glomerular Filt Rate 53; Glucose Random 102 mg/dL (60-115); Lipase 35 U/L (8-78); Magnesium 2.3 mg/dL (1.6-2.6); Potassium 3.9 mmol/L (3.3-5.1); Sodium 142 mmol/L (135-145); Total Protein 8.2 g/dL (6.5-8.0)
--- NOTE | 2022-02-17 01:17 | PC.NURSE ---
med rec complete. pt denies any pain at this time.
[2022-02-17] MEDS: iohexoL 350 MG/ML 100 ML INFUS..BTL 85 ML IV (01:31)
[2022-02-17 02:32] VITALS: BP 121/61; PULSE 70; TEMP 36.8; O2SAT 96
[2022-02-17 02:46] LABS: Appearance Urine Clear; Color Urine Yellow; Glucose Urine UA Negative (Negative); Leukocyte Esterase Urine Negative (Negative); Nitrite Urine Negative (Negative); Specific Gravity - Urine >= 1.030 (1.005-1.025); UMIC TRIGGER UACC YES; Urine Blood Negative (Negative); Urine Ketones 15 mg/dL (Negative); Urine Protein 30 (1+) mg/dL (Neg-Trace)
[2022-02-17] MEDS: HYDROmorphone HCl 0.5 MG/0.5 ML SYRINGE IVPUSH ×2 (03:05→08:22)
[2022-02-17] MEDS: ondansetron HCL 4 MG/2 ML VIAL IVPUSH (03:05)
[2022-02-17 03:14] LABS: Bacteria Urine None Seen (None Seen); Hyaline Casts Urine 0-2 /LPF (0-2); RBC Urine 0-2 /HPF (0-2); Squamous Epithelial Cell Urine 0-2 /HPF (0-2); WBC Urine 0-5 /HPF (0-5)
--- NOTE | 2022-02-17 03:15 | PC.NURSE ---
medicated per provider order, Dr Peters requested pt get remaining 2L bolus from ER provider before starting his orders, additional 18G started in left wrist, 2L NS running, medicated for 8/10 pain.
--- NOTE | 2022-02-17 03:30 | PC.NURSE ---
force adjustment supervisor RN contacted for remaining medications.
[2022-02-17 03:52] VITALS: BP 102/61; PULSE 56; TEMP 36.7; O2SAT 96
[2022-02-17] MEDS: Dextrose 5 % and Lactated Ring 1,000 ML 125 ML IVCONT ×2 (04:13→15:04)
--- NOTE | 2022-02-17 04:44 | PC.NURSE ---
Took over care from ESTELA Jeter at 4:15am. NG-Tube place by ESTELA Walker. Pt medicated per Jun. Pt remains NPo. Will continue to monitor.
--- NOTE | 2022-02-17 04:45 | PC.NURSE ---
Pt. changed into hospital gown and put on painter maintenance. NGT inserted to left nare and awaiting bedside x-ray to confirm placement at this time.
[2022-02-17 05:00] LABS: COVID-19 Test Negative (Negative)
[2022-02-17 05:54] VITALS: BP 116/58; PULSE 51; RESP 15; O2SAT 95
[2022-02-17 07:27] LABS: Anion Gap 11 (12-20); Blood Urea Nitrogen 17 mg/dL (9-16); Carbon Dioxide 22 mmol/L (22-29); Chloride 111 mmol/L (96-108); Creatinine Clr Calc Pharmacy 108.6; Estimated Glomerular Filt Rate > 60; Glucose Random 125 mg/dL (60-115); Sodium 140 mmol/L (135-145)
[2022-02-17 07:46] LABS: Calcium 7.8 mg/dL (8.4-10.2)
--- NOTE | 2022-02-17 07:49 | PHA.MEDREC ---
Pharmacy Consult ? Medication Reconciliation Pharmacy has completed the medication reconciliation.Reviewed med rec done by nursing.
[2022-02-17] MEDS: Acetaminophen 1,000 MG/100 ML PIGGYBACK 400 MG IV (09:02)
--- NOTE | 2022-02-17 09:05 | PM.HPGS ---
History of Present Illness History of Present Illness Date of Service: 02/17/22 Chief complaint: small bowel obstruction Narrative: Justin Jorge is a 42 year old male with previous history of well-known to the service with a long history of Crohn's disease and multiple admissions for small-bowel obstructions most recently in April 2020, and prior to this he was admitted in October 2019. His most recent surgery Crohn's disease occurred approximately 4 years ago and was performed in [place].? He reports the onset of abdominal pain mostly in the lower abdomen starting yesterday after eating a large meal. His pain was associated with nausea and vomiting. The pain is described as crampy but occasionally increases in severity.? He subsequently presented to the emergency department was noted to be tender in the lower abdomen.? A CT of the abdomen and pelvis revealed a large dilated stomach fluid-filled small bowel with air-fluid levels consistent with a small-bowel obstruction. He is admitted to the surgical service for further management of his small-bowel obstruction.? A nasogastric tube was placed in the emergency department and connected to wall suction.? Review of Systems Review of Systems: Yes all other systems are reviewed and are negative Constitutional: Constitutional: Denies chills, Denies fever(s), Denies headache(s), Denies poor appetite and Denies weakness ENT: Denies headache(s) Cardiovascular: Cardiovascular: Denies chest pain, Denies irregular heart rhythm, Denies palpitations and Denies dyspnea Respiratory: Respiratory: Denies cough, Denies excessive phlegm production and Denies dyspnea Gastrointestinal: Gastrointestinal: Reports abdominal pain, Reports bloating, Denies change in bowel habits, Reports constipation, Denies heartburn, Denies diarrhea, Reports nausea and Reports vomiting Genitourinary: Genitourinary: Denies difficulty urinating and Denies urinary frequency Musculoskeletal: Musculoskeletal: Denies back pain, Denies muscle weakness and Denies numbness Integumentary/Breasts: Skin/Breast: Denies changing lesions and Denies unusual bruising Neurologic: Denies headache(s), Denies numbness, Denies paresthesias and Denies weakness Psychiatric: Psychiatric: Denies anxiety and Denies depression Endocrine: Endocrine: Denies palpitations Hematologic/Lymphatic: Hematologic/Lymphatic: Denies lymphadenopathy PMFSH Past Medical History Medical History Acute Crohn's disease Anxiety Crohn's disease SBO (small bowel obstruction) Small bowel obstruction Surgical History Surgical History History of bowel resection History of bowel resection History of laparotomy Hx of appendectomy Social History Social History Household Members: Family Housing: House Do you presently have visiting nurse or other home services: No Alcohol intake: never Second Hand Smoke Exposure: No Advance Directives: No Advance Directives Information Provided: No service: Yes Current occupational status: retired Meds Allergies Allergy/AdvReac Type Severity Reaction Status Date / Time Penicillins Allergy Mild RASH Verified 02/17/22 00:25 penicillin V Allergy Unknown rash Verified 02/17/22 00:25 Active Medications: Current Medications Hydromorphone HCl (Hydromorphone Hcl 0.5 Mg/0.5 Ml Syringe) 0.5 mg IVPUSH Q3H PRN; Protocol PRN Reason: Pain, Severe (Pain Scale 7-10) Last Admin: 02/17/22 08:22 Dose: 0.5 mg Dextrose/Lactated Ringer's (D5lr) 1,000 mls @ 125 mls/hr IVCONT .Q8H [facility] Last Admin: 02/17/22 04:13 Dose: 125 mls/hr Acetaminophen (Ofirmev) 1,000 mg in 100 mls @ 400 mls/hr IV Q6H [facility] Stop: 02/17/22 19:44 Last Admin: 02/17/22 09:02 Dose: 400 mls/hr Ondansetron HCl (Ondansetron Hcl 4 Mg/2 Ml Vial) 4 mg IVPUSH Q8H PRN PRN Reason: Nausea Pharmacy Consult (Consult Rx Perform Med Rec) 1 each MISCELLANE ONCE PRN PRN Reason: Consult order Sodium Chloride (0.9 % Sodium Chloride Flush 3 Ml Syringe) 3 ml IVFLUSH QSHIFT [facility] Last Admin: 02/17/22 07:24 Dose: Not Given Zolpidem Tartrate (Zolpidem Tartrate 5 Mg Tablet) 5 mg PO BEDTIME PRN PRN Reason: Insomnia Home Medications Medication Instructions Recorded Confirmed Last Taken Type ustekinumab 90 mg/mL subcutaneous 90 mg subcut Q4W 04/13/20 02/17/22 02/16/22 09:00 History syringe (Michaellara) Physical Exam Vital Signs: Vital Signs: Last Vital Signs Temp 98.1 F 02/17/22 03:52 Pulse 51 02/17/22 05:54 Resp 15 02/17/22 05:54 BP 116/58 L 02/17/22 05:54 Pulse Ox 95 02/17/22 05:54 O2 Del Method 02/17/22 05:54 BMI result Body Mass Index 27.8 Const: General: cooperative and no acute distress Nutritional Appearance: well nourished Orientation/consciousness: patient oriented x3 Limitations: no limitations HEENT: Head: Yes normocephalic and Yes atraumatic Ears: hearing grossly normal bilaterally Resp: Effort & Inspection: normal respiratory effort, no audible wheezes, no cough and no respiratory distress Cardio: Jugular venous distension: no JVD GI: Palpation (GI): Soft to palpation and Tenderness to palpation present (GI) in the LUQ and in the RUQ Percussion: Yes tympanic to percussion Auscultation: abnormal bowel sounds Rectal Exam - Male: Yes deferred Skin: Other: Warm, dry, no rash Neuro: General: patient oriented x3 Extrem: General: Yes no clubbing, cyanosis or edema Results Results Labs: Short CBC 02/17/22 Range/Units 00:34 WBC 11.3 H (4.8-10.8) X10*3/uL Hgb 15.8 (14.0-18.0) g/dl Hct 47.6 (42.0-52.0) % Plt Count 284 (160-400) X10*3/uL BMP 02/17/22 02/17/22 00:34 06:28 Sodium 142 140 Potassium 3.9 4.0 Chloride 100 111 H Carbon Dioxide 24 22 BUN 20 H 17 H Creatinine 1.46 H 1.01 Calcium 10.1 D 7.8 L D Liver Function 02/17/22 Range/Units 00:34 Total Bilirubin 0.5 (0.0-1.0) mg/dL AST 26 (5-37) U/L ALT 19 (0-40) U/L Alkaline Phosphatase 53 (39-117) U/L Albumin 4.9 (3.5-5.0) g/dL Urine 10/24/22 Range/Units 02:39 Urine Color Yellow Urine Appearance Clear Urine pH 7.0 (5.0-9.0) Ur Specific [place] >= 1.030 H (1.005-1.025) Urine Protein 30 (1+) H (Neg-Trace) mg/dL Urine Glucose (UA) Negative (Negative) mg/dL Assessment and Plan (1) Small bowel obstruction: Status: Acute (2) Crohn's disease: Qualifiers: Digestive disease complication type: with intestinal obstruction Gastrointestinal tract location: small intestine Qualified Code(s): K50.012 - Crohn's disease of small intestine with intestinal obstruction Status: Acute Plan 42-year-old male patient with history of Crohn's disease previous colon surgery presenting with recurrent small-bowel obstruction. CT reviewed and reveals large dilated stomach and small bowel. NG tube placed emergency department with his not seem to be draining much fluid. There may be on digested food products in the stomach blocking the NG tube. Will check abdominal x-ray to recheck placement of the tube. NPO and IV fluids. Quality Stroke Does the patient have a stroke diagnosis?: No VTE Prior VTE?: No VTE Risk Level:: Surgical - moderate VTE Device Contraindication: N/A - Device Ordered VTE Drug Contraindication: Treatment Not Indicated Procedures Date of Service Date of Service: 02/17/22
--- NOTE | 2022-02-17 11:42 | MHC.CM.PN ---
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
[2022-02-17 12:39] VITALS: BP 112/57; PULSE 51; RESP 10; O2SAT 98
[2022-02-17] MEDS: Acetaminophen 1,000 MG/100 ML PIGGYBACK 125 MG IV ×2 (15:03→19:16)
--- NOTE | 2022-02-17 17:35 | PC.NURSE ---
pt resting on stretcher, states pain tolerable. States he would like NGT out. States he is passing gas, abdomen appears firm and mildly distended. Also c/o MATHEW, lights dimmed and ice provided.
[2022-02-17 21:55] VITALS: BP 119/70; PULSE 62; TEMP 36.7; O2SAT 97
[2022-02-18] MEDS: Dextrose 5 % and Lactated Ring 1,000 ML 125 ML IVCONT ×3 (00:20→17:33)
[2022-02-18] MEDS: 0.9 % Sodium Chloride Flush 3 ML SYRINGE IVFLUSH (00:22)
--- NOTE | 2022-02-18 01:14 | PC.NURSE ---
Patient pulled out NG tube reporting that he knows how to do it independently d/t history of recurrent SBO. Dr. Goodwin notified, plan to monitor patient's GI status, if he develops nausea/vomiting-RN to re insert NG tube. Patient denies nausea/vomiting at present, normoactive BS x4, no abdominal distension noted.
[2022-02-18 04:46] LABS: MANUAL DIFF FLAG NO
[2022-02-18 04:48] LABS: Basophils Percent Auto 0.3 % (0-2); Eosinophils Absolute Auto 0.2 X10*3/uL (0.0-0.4); Eosinophils Percent Auto 2.6 % (0-4); Hematocrit 39.8 % (42.0-52.0); Hemoglobin 13.1 g/dl (14.0-18.0); Imm Gran Abs Auto 0.01 X10*3/uL (0.00-0.03); Imm Gran Pct Auto 0.2 % (0.0-0.4); Lymphocytes Absolute Auto 1.5 X10*3/uL (1.2-4.9); Mean Corpuscular HGB Conc 32.9 g/dl (31.0-36.0); Mean Corpuscular Volume 88.2 fL (80.0-98.0); Mean Platelet Volume 10.5 fL (9.4-12.4); Monocytes Absolute Auto 0.7 X10*3/uL (0.1-1.2); Monocytes Percent Auto 11.3 % (2-11); Neutrophils Absolute Auto 3.5 x10*3/uL (2.0-8.3); Neutrophils Percent Auto 60.6 % (45-73); Platelet Count 181 X10*3/uL (160-400); Red Blood Count 4.51 X10*6/uL (4.60-5.80); Red Cell Distribution Width 12.8 % (11.0-16.0); White Blood Count 5.8 X10*3/uL (4.8-10.8)
--- NOTE | 2022-02-18 04:50 | PC.NURSE ---
Patient reports mild abdominal pain 2/10 at present. Patient denies nausea/vomiting. Abdomen non-distended, +,BS x4.
[2022-02-18 05:52] VITALS: BP 114/54; PULSE 69; TEMP 36.7; O2SAT 98
[2022-02-18 07:13] VITALS: BP 114/71; PULSE 59; RESP 14; TEMP 36.9; O2SAT 97
--- NOTE | 2022-02-18 08:20 | PM.PNGS ---
Subjective Subjective Date of Service: 02/18/22 <Karissa Purdy PA-C - Last Filed: 02/18/22 08:24> 02/18/22 <Igor Peters MD - Last Filed: 02/18/22 12:32> Interval history: Feeling a little better this morning. Pain improved. Passing flatus but no BM yet. <Karissa Purdy PA-C - Last Filed: 02/18/22 08:24> Physical Exam Vital Signs: Vital Signs: Last Vital Signs Temp 98.4 F 02/18/22 07:13 Pulse 59 02/18/22 07:13 Resp 14 02/18/22 07:13 BP 114/71 02/18/22 07:13 Pulse Ox 97 02/18/22 07:13 O2 Del Method 02/18/22 07:13 BMI result Body Mass Index 27.8 <Karissa Purdy PA-C - Last Filed: 02/18/22 08:24> Const: General: comfortable, no acute distress and alert <Karissa Purdy PA-C - Last Filed: 02/18/22 08:24> Orientation/consciousness: patient oriented x3 <Karissa Purdy PA-C - Last Filed: 02/18/22 08:24> Resp: Effort & Inspection: normal respiratory effort <Karissa Purdy PA-C - Last Filed: 02/18/22 08:24> GI: Inspection: No distended <Karissa Purdy PA-C - Last Filed: 02/18/22 08:24> Palpation (GI): Soft to palpation, Tenderness to palpation present (GI) (mild, lower abdomen), no guarding and not rigid <Karissa Purdy PA-C - Last Filed: 02/18/22 08:24> Percussion: Yes normal to percussion <MARGRET Taylor Last Filed: 02/18/22 08:24> Skin: General skin exam: no rashes or lesions noted <MARGRET Taylor Last Filed: 02/18/22 08:24> Neuro: General: patient oriented x3 <MARGRET Taylor Last Filed: 02/18/22 08:24> Extrem: General: Yes no clubbing, cyanosis or edema <Karissa Purdy PA-C - Last Filed: 02/18/22 08:24> Objective Data Active Medications Acetaminophen (Acetaminophen 325 Mg Tablet) 650 mg PO Q6H PRN PRN Reason: fever, pain Hydromorphone HCl (Hydromorphone Hcl 0.5 Mg/0.5 Ml Syringe) 0.5 mg IVPUSH Q3H PRN; Protocol PRN Reason: Pain, Severe (Pain Scale 7-10) Last Admin: 02/17/22 08:22 Dose: 0.5 mg Documented By: [email or web address] Dextrose/Lactated Ringer's (D5lr) 1,000 mls @ 125 mls/hr IVCONT .Q8H [facility] Last Admin: 02/18/22 00:20 Dose: 125 mls/hr Documented By: BUCK Ondansetron HCl (Ondansetron Hcl 4 Mg/2 Ml Vial) 4 mg IVPUSH Q8H PRN PRN Reason: Nausea Pharmacy Consult (Consult Rx Perform Med Rec) 1 each MISCELLANE ONCE PRN PRN Reason: Consult order Sodium Chloride (0.9 % Sodium Chloride Flush 3 Ml Syringe) 3 ml IVFLUSH QSHIFT [facility] Last Admin: 02/18/22 00:22 Dose: 3 ml Documented By: BUCK Zolpidem Tartrate (Zolpidem Tartrate 5 Mg Tablet) 5 mg PO BEDTIME PRN PRN Reason: Insomnia <Karissa Purdy PA-C - Last Filed: 02/18/22 08:24> Labs CBC & Chem 7: : 02/18/22 04:42 02/17/22 06:28 <Karissa Purdy PA-C - Last Filed: 02/18/22 08:24> Labs: Laboratory Results - last 24 hr 02/18/22 04:42 MCV 88.2 MCH 29.0 MCHC 32.9 RDW 12.8 Plt Count 181 D MPV 10.5 Immature Gran % (Auto) 0.2 Neut % (Auto) 60.6 Lymph % (Auto) 25.0 [place] % (Auto) 11.3 H Eos % (Auto) 2.6 Baso % (Auto) 0.3 Lymph # (Auto) 1.5 [place] # (Auto) 0.7 Eos # (Auto) 0.2 Baso # (Auto) 0.0 Abs Immat Gran (auto) 0.01 Absolute Neuts (auto) 3.5 Absolute Nucleated RBC 0.000 Nucleated RBC % (auto) 0.0 <Karissa Purdy PA-C - Last Filed: 02/18/22 08:24> Microbiology Microbiology Results: Microbiology 02/17/22 02:39 Blood Culture - Preliminary Blood - Venous No growth after 24 hours. 02/17/22 00:34 Blood Culture - Preliminary Blood - Venous No growth after 24 hours. <Karissa Purdy PA-C - Last Filed: 02/18/22 08:24> Procedures Date of Service Date of Service: 02/18/22 <Karissa Purdy PA-C - Last Filed: 02/18/22 08:24> Progress Note: A&P Assessment and plan (1) LIGIA (acute kidney injury): Status: Acute <Karissa Purdy PA-C - Last Filed: 02/18/22 08:24> (2) Small bowel obstruction: Status: Acute <Karissa Purdy PA-C - Last Filed: 02/18/22 08:24> Assessment and Plan: 42 year old male admitted for SBO now with improvement in symptoms and evidence of return of GI function. His abdomen is benign. NGT is out. Will advance to clear liquids. If tolerating, will advance further to low residue. Patient comfortable with plan. LIGIA resolved with gentle hydration. <Karissa Purdy PA-C - Last Filed: 02/18/22 08:24> 42 year old male admitted for SBO now with improvement in symptoms and evidence of return of GI function. His abdomen is benign. NGT is out. Will advance to clear liquids. If tolerating, will advance further to low residue. Patient comfortable with plan. LIGIA resolved with gentle hydration. Abdominal x-ray from yesterday showed improvement in the small bowel dilation. Patient reports passing flatus today and denies nausea or vomiting. Abdomen is soft, nontender and nondistended. Agree with the above assessment and plan. Advance diet as tolerated. <Igor Peters MD - Last Filed: 02/18/22 12:32> Time Spent With Patient Time: Total time spent is greater than 50% in coordination of care (as documented) at patient's floor/unit and/or counseling patient: <Karissa Purdy PA-C - Last Filed: 02/18/22 08:24> Quality Stroke Does the patient have a stroke diagnosis?: No <Karissa Purdy PA-C - Last Filed: 02/18/22 08:24> VTE Prior VTE?: No <Karissa Purdy PA-C - Last Filed: 02/18/22 08:24> VTE Risk Level:: Surgical - moderate <Karissa Purdy PA-C - Last Filed: 02/18/22 08:24> VTE Device Contraindication: N/A - Device Ordered <Karissa Purdy PA-C - Last Filed: 02/18/22 08:24> VTE Drug Contraindication: Treatment Not Indicated <Karissa Purdy PA-C - Last Filed: 02/18/22 08:24>
--- NOTE | 2022-02-18 09:23 | PC.NURSE ---
attempt to give report, nurse to call back
[2022-02-18] MEDS: Ketorolac Tromethamine 30 MG/ML VIAL IVPUSH ×2 (09:38→22:51)
--- NOTE | 2022-02-18 09:43 | PC.NURSE ---
PT AWAKE, ALERT, APPROPRIATE, ORIENTED X4. REPORTS FEELING SCARED THAT HE CONTINUES TO GET OBSTRUCTIONS. REPORTING TO T/W HX OF RESECTION LAST YEAR, I THOUGHT I WAS CURED PT THEN REPORTS HAVING AN OBSTRUCTION 1 YEAR AND ONE DAY AFTER THE SURGERY. PT SELF REMOVED NG TUBE LAST NIGHT. REPORTS SOME STOMACH DISCOMFORT, 5/10 MEDICATED WITH KETORELAC PER MAR. NO N/V AT THIS TIME. PT AMBULATING INDEPENDENTLY AND PASSING FLATUS.
[2022-02-18 12:00] VITALS: BP 144/82; PULSE 63; RESP 18; TEMP 36.5; O2SAT 97
[2022-02-18 16:00] VITALS: BP 122/82; PULSE 57; RESP 19; TEMP 36.3; O2SAT 98
[2022-02-18 20:00] VITALS: BP 136/78; PULSE 52; RESP 18; TEMP 36.1; O2SAT 97
[2022-02-18 23:57] VITALS: BP 119/60; PULSE 50; RESP 18; TEMP 36.2; O2SAT 96
[2022-02-19] MEDS: Dextrose 5 % and Lactated Ring 1,000 ML 125 ML IVCONT ×2 (01:12→11:27)
[2022-02-19 04:00] VITALS: BP 127/74; PULSE 53; RESP 18; TEMP 36.2; O2SAT 98
[2022-02-19 06:48] VITALS: BP 125/68; PULSE 61; RESP 18; TEMP 36.1; O2SAT 97
[2022-02-19 11:04] VITALS: BP 132/70; PULSE 64; RESP 16; TEMP 36.6; O2SAT 98
[2022-02-19 15:07] VITALS: BP 128/72; PULSE 56; RESP 16; TEMP 36.3; O2SAT 95
--- NOTE | 2022-02-19 15:21 | MHC.CM.PN ---
PT MEDICALLY CLEARED FOR D/C HOME SELF CARE, PT TO ARRANGE TRANSPORT.
--- NOTE | 2022-02-21 09:28 | P.DS_ITS ---
DS: Providers Provider Date of Service: 02/19/22 Date of admission: 02/17/22 02:16 Primary care physician: Claudette Lebron MD Attending physician on admission: Igor Peters Consults: 02/17/22 02:07 Consult to General Surgery Stat Consulting Provider: Igor Peters Reason for consultation: SBO 02/19/22 07:37 Consult to Gastroenterology Routine Consulting Provider: Broderick James Reason for consultation: SBO, Crohn's Disease Attending physician on discharge: Igor Peters DS: Diagnosis Discharge Diagnosis (1) LIGIA (acute kidney injury): Status: Acute (2) Small bowel obstruction: Status: Acute DS: Summary Hospital Course Hospital Course: BRIEF HPI: Justin Jorge is a 42 year old male with previous history of well- known to the service with a long history of Crohn's disease and multiple admissions for small-bowel obstructions most recently in April 2020, and prior to this he was admitted in October 2019.? His most recent surgery Crohn's disease occurred approximately 4 years ago and was performed in [place].? He reports the onset of abdominal pain mostly in the lower abdomen starting yesterday after eating a large meal.? His pain was associated with nausea and vomiting.? The pain is described as crampy but occasionally increases in severity.? He subsequently presented to the emergency department was noted to be tender in the lower abdomen.? A CT of the abdomen and pelvis revealed a large dilated stomach fluid-filled small bowel with air-fluid levels consistent with a small-bowel obstruction. HOSPITAL COURSE: He was admitted to the surgical service for further management of his small-bowel obstruction, likely secondary to adhesions.? A nasogastric tube was placed in the emergency department and connected to wall suction. The patient had an uncomplicated hospital course. The SBO resolved with nonoperative measures. He improved symptomatically and there was no significant amount of NGT drainage after insertion and overnight and it was therefore removed that morning. He was passing flatus. He was started on clear liquids. He was ambulated. The following day, he was tolerating clear liquids and was therefore advanced to a low residue diet. The next day, on the day of discharge, he was tolerating a solid diet without nausea, vomiting or abdominal pain. He was passing continuous flatus. His abdomen was soft, non tender and non distended. He felt ready for discharge to home. He was discharged to home on 02/19/22 in stable condition. He is to follow up with his PCP. Status at Discharge Functional status at discharge: independent ambulation Overall status at discharge: patient is back to baseline Time Spent with Patient Time attestation: Total time spent providing and/or coordinating discharge services: Discharge coordination time: Greater than 30 minutes Quality: Safe Use of Opioids Does Pt have an Active Cancer Diagnosis on the Problem List?: No Quality: Stroke Does the patient have a stroke diagnosis?: No Physical Exam Vital Signs: Vital Signs: Last Vital Signs Temp 97.4 F 02/19/22 15:07 Pulse 56 02/19/22 15:07 Resp 16 02/19/22 15:07 BP 128/72 02/19/22 15:07 Pulse Ox 95 02/19/22 15:07 O2 Del Method 02/19/22 15:07 BMI result Body Mass Index 27.8 Const: General: comfortable, no acute distress and alert Nutritional Appearance: well nourished Orientation/consciousness: patient oriented x3 Resp: Effort & Inspection: normal respiratory effort GI: Inspection: No distended Palpation (GI): Soft to palpation, nontender, no guarding and not rigid Skin: General skin exam: no rashes or lesions noted Neuro: General: patient oriented x3 DS: Data Data Completed and Pending Labs on day of discharge: Preliminary micro results at discharge 02/17/22 02:39 Blood Culture - Preliminary Blood - Venous No growth after 48 hours. 02/17/22 00:34 Blood Culture - Preliminary Blood - Venous No growth after 48 hours. Discharge Plan Discharge Anticipated Discharge Date/Time: 02/19/22 14:11 Patient Disposition: Home, Self-Care Discharge Diagnosis: SBO Referrals: Claudette Lebron MD [Primary Care Provider] - 1 Week Discharge Medications: Continued Stelara 90 mg/mL Syringe 90 mg SUBCUT Q4W Discharge Orders: Discharge Order (Routine); Ordered 02/19/22 Ordered By: Igor Peters Diet: Advance to usual diet Activity on Discharge: As tolerated Stand Alone Forms: Patient Portal Discharge page Care Plan Goals: Return to baseline health and gradual return to activity. Health Concerns: SBO Plan of Treatment: Supportive measures: NGT, bowel rest, IVF, pain control F/u with PCP Assessment: Resolved Discharge Date/Time: 02/19/22 16:00
== END 2022-02-19 16:00 | disposition home or self-care (01) | DRG 386 ==
LOC: HO.ED 02-17 01:56 → HO.EDOVER 02-17 02:31 → HO.S3 02-18 08:35
PROVIDERS: Physician Assistant; Admitting Provider Surgery; Emergency Provider Student in an Organized Health Care Education/Training Program; PCP Internal Medicine; Visit Provider Surgery
DX: K50.012 Crohn's disease of small intestine with intestinal obstruction (principal); N17.9 Acute kidney failure, unspecified; Z88.0 Allergy status to penicillin; Z79.60 Long term (current) use of unspecified immunomodulators and immunosuppressants
CPT/HCPCS: 36415; 71045; 74018; 74177; 80048; 80053; 81001; 83605; 83690; 83735; 85025; 87040; 87635; 96361; 96374; 96375; 99285; J0131; J1170; J1885; J2270; J2405; Q9967

== ENCOUNTER 2022-05-07 03:01 | Observation (INO) | payer OTHER, SELFPAY ==
[2022-05-07] VITALS (8 sets, daily range): BP systolic 101–125; BP diastolic 54–71; PULSE 45–78; RESP 14–18; TEMP 36.6–37; O2SAT 92–99; BMI 27.8; BMI 28.0
--- NOTE | 2022-05-07 | ECG_ITS ---
Test Reason : ABDOMINAL PAIN Blood Pressure : / mmHG Vent. Rate : 075 BPM Atrial Rate : 075 BPM P-R Int : 174 ms QRS Dur : 090 ms QT Int : 388 ms P-R-T Axes : 053 073 056 degrees QTc Int : 433 ms Normal sinus rhythm Normal ECG When compared with ECG of 11-NOV-2018 06:09, No significant change was found Referred By: Tesha Ferrer Electronically Signed By:Jaziel Lee
--- NOTE | ~2022-05-07 | XR_ITS ---
EXAMINATION: XR ABDOMEN KUB CLINICAL INDICATION: Question small bowel obstruction COMPARISON: Radiograph 02/17/2022 TECHNIQUE: AP view of the abdomen. FINDINGS: Normal bowel gas pattern. No dilated loops of bowel. Gas and stool in the colon. Lung bases are clear. No suspicious calcification. No acute osseous abnormality. XR/XR KUB IMPRESSION: Nonobstructive bowel gas pattern.
--- NOTE | 2022-05-07 03:14 | ED_ITS ---
HPI - Abdominal Pain General Chief Complaint: Abdominal Pain Stated Complaint: ?Bowel Obstruction Time Seen by Provider: 05/07/22 03:08 Source: patient Mode of arrival: ambulatory Limitations: no limitations History of Present Illness HPI narrative: Patient comes to the emergency room complaining of increased abdominal pain. Patient states that throughout this week, he has had 3 episodes of small-bowel obstructions. Usually the self-resolved. Patient has had 40+ SBOs and is very familiar with the symptoms. No vomiting. Patient complaining of intense abdominal pain and distension. Patient has history of Crohn's. Related Data Home Medications Medication Instructions Recorded Confirmed ustekinumab 90 mg/mL subcutaneous 90 mg subcut Q4W 04/13/20 02/17/22 syringe (Stelara) Allergies Allergy/AdvReac Type Severity Reaction Status Date / Time Penicillins Allergy Mild RASH Verified 02/17/22 00:25 penicillin V Allergy Unknown rash Verified 02/17/22 00:25 Review of Systems Review of Systems Constitutional : No Weight loss, No Fever, No Chills, No Night Sweats, No Fatigue, No Malaise ENT/Mouth : No Hearing loss, No Ear Pain, No Nasal Congestion, No Sinus Pain, No Hoarseness, No sore throat, No Rhinorrhea, No Swallowing Difficulty Eyes: No Eye Pain, No Swelling, No Redness, No Foreign Body, No Discharge, No Vision Changes Cardiovascular : No Chest Pain, No SOB, No Dyspnea on Exertion, No Orthopnea, No Edema, No Palpitations Respiratory : No Cough, No Sputum, No Wheezing, No Smoke Exposure, No Dyspnea Gastrointestinal : No Nausea, No Vomiting, complaining of distension an diffuse abdominal pain Genitourinary : no irregular bleeding, No Dysuria, No Urinary Frequency, No Hematuria, No Urinary Incontinence, No Urgency, No Flank Pain, No Urinary Flow Changes, No Hesitancy Musculoskeletal : No joint pain, No Myalgias, No Joint Swelling Skin : No Skin Lesions, No rash Neuro : No Weakness, No Numbness, No Paresthesias, No Loss of Consciousness, No Dizziness, No Headache Psych : No Anxiety/Panic, No Depression, No SI/HI/AH/VH, No Social Issues, Heme/Lymph: No Bruising, No Bleeding,No Lymphadenopathy Endocrine : No Polyuria, No Polydipsia, No Temperature Intolerance PMFSH Past Medical History Medical History Acute Crohn's disease Anxiety Crohn's disease SBO (small bowel obstruction) Small bowel obstruction Small bowel obstruction Surgical History History of bowel resection History of bowel resection History of laparotomy Hx of appendectomy Social History Social History Household Members: Spouse and Children Housing: House Do you presently have visiting nurse or other home services: No Alcohol intake: never Patient Tobacco Use Status: Never used Tobacco Second Hand Smoke Exposure: No Advance Directives: Yes Advance Directives on File: Yes Advance Directives Date on File: 02/17/22 service: Yes Current occupational status: employed and retired Physical Exam ED Vital Signs: Vital Signs - 24 hr 05/07/22 03:03 05/07/22 03:32 05/07/22 04:40 Temperature 97.8 F Pulse Rate 72 Respiratory Rate 16 14 16 Blood Pressure 119/71 Pulse Oximetry 99 Oxygen Delivery Method Room Air 05/07/22 05:24 Temperature Pulse Rate 60 Respiratory Rate 16 Blood Pressure 103/54 L Pulse Oximetry 92 Oxygen Delivery Method Room Air BMI result Body Mass Index 27.8 Const Other: Appearance: Alert. Oriented X3. No acute distress. Eyes: Pupils equal, round and reactive to light. ENT: Pharynx normal. Neck: Normal inspection. Neck supple. No lymph nodes noted. No crepitus CVS: Normal heart rate and rhythm. Pulses normal. Normal S1 and S2 Respiratory: No respiratory distress. Breath sounds normal. No Wheezing. No rales Abdomen: Soft , slightly distended, diffusely tender in all quadrants Skin: Skin warm and dry. Normal skin color. Normal skin turgor. Extremities: No lower extremity edema. No Lacerations. No Rash Neuro: Oriented X 3. No motor deficit. No sensory deficit. Moving all extremities. No slurred speech. CN 2 through 12 grossly intact Psych: calm, cooperative, normal affect Course Course Course Narrative: Patient has had 40+ small-bowel obstructions. Patient is very family with the pain. Patient requesting not to get a CT scan since he has had so many throug hout his life. Patient agreeable to a KUB. Also, patient requesting that if he does have a small bowel obstruction, he would like to insert his own NG tube, which he knows how to do. Patient receiving IV fluids, Zofran and morphine. All labs and KUB pending. Medical Decision Making Medical Decision Making [facility] Narrative: I reviewed the labs and x-ray of the patient, it does not seem that the patient has an obstruction. However, this may be in there earlier stages. Morphine did not help the pain, patient now requesting Dilaudid. I do not believe that the patient is seeking narcotics. Patient looks very uncomfortable. Patient has had multiple small-bowel obstructions in the past. We will repeat imaging in couple of hours, as the obstruction is in early stages and patient still has significant abdominal pain. Differential Diagnosis Differential Diagnoses: The differential diagnosis associated with the presentation includes (Crohn's exacerbation, small-bowel obstruction) Admission/Observation Consideration of admission/observation: Escalation of care including admission/o bservation considered (Patient has intractable abdominal pain. Patient has history of multiple small-bowel obstructions, 40+. Patient has had significant pain throughout the week, usually able to handle SBO so at home. However, patient continues having pain despite being treated with morphine and Dilaudid. There is a ) Consult Healthcare Provider Management of the patient was discussed with: Hospitalist (I discussed the patient's situation with Dr. Alejandre, patient will be admitted and surgery consult will be obtained in the morning.) Lab Data [facility] Lab Attestation statement: I reviewed the patient's lab results. 05/07/22 03:20 05/07/22 03:20 Labs: Lab Results 05/07/22 05/07/22 05/07/22 Range/Units 03:20 03:20 03:27 WBC 9.1 (4.8-10.8) X10*3/uL RBC 5.53 D (4.60-5.80) X10*6/uL Hgb 16.0 D (14.0-18.0) g/dl Hct 47.6 (42.0-52.0) % MCV 86.1 (80.0-98.0) fL MCH 28.9 (27.0-33.0) pg MCHC 33.6 (31.0-36.0) g/dl RDW 12.9 (11.0-16.0) % Plt Count 258 D (160-400) X10*3/uL MPV 9.9 (9.4-12.4) fL Immature Gran % (Auto) 0.2 (0.0-0.4) % Neut % (Auto) 69.4 (45-73) % Lymph % (Auto) 18.6 L (20-40) % [place] % (Auto) 10.7 (2-11) % Eos % (Auto) 0.9 (0-4) % Baso % (Auto) 0.2 (0-2) % Lymph # (Auto) 1.7 (1.2-4.9) X10*3/uL [place] # (Auto) 1.0 (0.1-1.2) X10*3/uL Eos # (Auto) 0.1 (0.0-0.4) X10*3/uL Baso # (Auto) 0.0 (0.0-0.2) X10*3/uL Abs Immat Gran (auto) 0.02 (0.00-0.03) X10*3/uL Absolute Neuts (auto) 6.3 (2.0-8.3) x10*3/uL Absolute Nucleated RBC 0.000 (0.0-0.012) X10*3/uL Nucleated RBC % (auto) 0.0 (0.0-0.2) /100WBC Sodium 140 (135-145) mmol/L Potassium 4.1 (3.3-5.1) mmol/L Chloride 103 (96-108) mmol/L Carbon Dioxide 24 (22-29) mmol/L Anion Gap 17 (12-20) BUN 22 H (9-16) mg/dL Creatinine 1.15 (0.5-1.4) mg/dL Estim Creat Clear Calc 95.4 Estimated GFR > 60 Random Glucose 101 (60-115) mg/dL Lactic Acid 0.8 (0.5-2.0) mmol/L Calcium 10.2 D (8.4-10.2) mg/dL Total Bilirubin 0.6 (0.0-1.0) mg/dL Direct Bilirubin 0.2 (0.0-0.5) mg/dL AST 23 (5-37) U/L ALT 13 (0-40) U/L Alkaline Phosphatase 57 (39-117) U/L Total Protein 7.9 (6.5-8.0) g/dL Albumin 4.8 (3.5-5.0) g/dL COVID-19 (RENÉ) (Negative) COVID-19 Clin Com 05/07/22 Range/Units 03:27 WBC (4.8-10.8) X10*3/uL RBC (4.60-5.80) X10*6/uL Hgb (14.0-18.0) g/dl Hct (42.0-52.0) % MCV (80.0-98.0) fL MCH (27.0-33.0) pg MCHC (31.0-36.0) g/dl RDW (11.0-16.0) % Plt Count (160-400) X10*3/uL MPV (9.4-12.4) fL Immature Gran % (Auto) (0.0-0.4) % Neut % (Auto) (45-73) % Lymph % (Auto) (20-40) % [place] % (Auto) (2-11) % Eos % (Auto) (0-4) % Baso % (Auto) (0-2) % Lymph # (Auto) (1.2-4.9) X10*3/uL [place] # (Auto) (0.1-1.2) X10*3/uL Eos # (Auto) (0.0-0.4) X10*3/uL Baso # (Auto) (0.0-0.2) X10*3/uL Abs Immat Gran (auto) (0.00-0.03) X10*3/uL Absolute Neuts (auto) (2.0-8.3) x10*3/uL Absolute Nucleated RBC (0.0-0.012) X10*3/uL Nucleated RBC % (auto) (0.0-0.2) /100WBC Sodium (135-145) mmol/L Potassium (3.3-5.1) mmol/L Chloride (96-108) mmol/L Carbon Dioxide (22-29) mmol/L Anion Gap (12-20) BUN (9-16) mg/dL Creatinine (0.5-1.4) mg/dL Estim Creat Clear Calc Estimated GFR Random Glucose (60-115) mg/dL Lactic Acid (0.5-2.0) mmol/L Calcium (8.4-10.2) mg/dL Total Bilirubin (0.0-1.0) mg/dL Direct Bilirubin (0.0-0.5) mg/dL AST (5-37) U/L ALT (0-40) U/L Alkaline Phosphatase (39-117) U/L Total Protein (6.5-8.0) g/dL Albumin (3.5-5.0) g/dL COVID-19 (RENÉ) Negative (Negative) COVID-19 Clin Com See Note Independent Interpretation I performed an independent interpretation of an: Plain X-Ray (KUB my interpretation: No air-fluid levels) Radiology Impression Radiologist Impression: FINDINGS: Normal bowel gas pattern. No dilated loops of bowel. Gas and stool in the colon. Lung bases are clear. No suspicious calcification. No acute osseous abnormality. XR/XR KUB IMPRESSION: Nonobstructive bowel gas pattern. Medications Administered Discontinued Medications Generic Name Dose Route Start Last Admin Trade Name Freq PRN Reason Stop Dose Admin Hydromorphone HCl 1 mg 05/07/22 04:33 05/07/22 04:40 Hydromorphone Hcl 1 Mg/Ml Syringe IVPUSH 05/07/22 04:34 1 mg ONCE ONE Administration Protocol Sodium Chloride 1,000 mls @ 999 mls/hr 05/07/22 03:12 05/07/22 03:29 Ns IVCONT 05/07/22 04:12 999 mls/hr .Q1H1M ONE Administration Morphine Sulfate 4 mg 05/07/22 03:12 05/07/22 03:32 Morphine Sulfate 4 Mg/Ml Cartridge IVPUSH 05/07/22 03:13 4 mg ONCE ONE Administration Protocol Ondansetron HCl 4 mg 05/07/22 03:12 05/07/22 03:31 Ondansetron Hcl 4 Mg/2 Ml Vial IVPUSH 05/07/22 03:13 4 mg ONCE ONE Administration Critical Care Time Critical Care Time Critical Care Time: Yes Total Critical Care Time: 30 Attestation: I have personally provided critical care time. Time includes review of lab data, radiology results, discussion with consultants, and monitoring for potential decompensation. Intervention performed as documented. Discharge Plan Discharge Clinical Impression: Intractable abdominal pain Patient Disposition: Admitted As Inpatient Prescriptions: No Action Stelara 90 mg/mL Syringe 90 mg SUBCUT Q4W
[2022-05-07 03:25] LABS: MANUAL DIFF FLAG NO
[2022-05-07 03:26] LABS: Basophils Percent Auto 0.2 % (0-2); Eosinophils Absolute Auto 0.1 X10*3/uL (0.0-0.4); Eosinophils Percent Auto 0.9 % (0-4); Hematocrit 47.6 % (42.0-52.0); Imm Gran Abs Auto 0.02 X10*3/uL (0.00-0.03); Imm Gran Pct Auto 0.2 % (0.0-0.4); Lymphocytes Absolute Auto 1.7 X10*3/uL (1.2-4.9); Lymphocytes Percent Auto 18.6 % (20-40); Mean Corpuscular HGB Conc 33.6 g/dl (31.0-36.0); Mean Corpuscular Hemoglobin 28.9 pg (27.0-33.0); Mean Corpuscular Volume 86.1 fL (80.0-98.0); Mean Platelet Volume 9.9 fL (9.4-12.4); Monocytes Percent Auto 10.7 % (2-11); Neutrophils Absolute Auto 6.3 x10*3/uL (2.0-8.3); Neutrophils Percent Auto 69.4 % (45-73); Platelet Count 258 X10*3/uL (160-400); Red Blood Count 5.53 X10*6/uL (4.60-5.80); Red Cell Distribution Width 12.9 % (11.0-16.0); White Blood Count 9.1 X10*3/uL (4.8-10.8)
[2022-05-07] MEDS: 0.9 % Sodium Chloride 1,000 ML 999 ML IVCONT (03:29)
[2022-05-07] MEDS: ondansetron HCL 4 MG/2 ML VIAL IVPUSH ×2 (03:31→09:11)
[2022-05-07] MEDS: Morphine Sulfate 4 MG/ML CARTRIDGE IVPUSH (03:32)
[2022-05-07 03:44] LABS: Lactic Acid 0.8 mmol/L (0.5-2.0)
[2022-05-07 03:46] LABS: Alanine Aminotransferase 13 U/L (0-40); Albumin Level 4.8 g/dL (3.5-5.0); Alkaline Phosphatase 57 U/L (39-117); Anion Gap 17 (12-20); Aspartate Amino Transferase 23 U/L (5-37); Bilirubin Direct 0.2 mg/dL (0.0-0.5); Bilirubin Total 0.6 mg/dL (0.0-1.0); Blood Urea Nitrogen 22 mg/dL (9-16); Calcium 10.2 mg/dL (8.4-10.2); Carbon Dioxide 24 mmol/L (22-29); Chloride 103 mmol/L (96-108); Creatinine Clr Calc Pharmacy 95.4; Estimated Glomerular Filt Rate > 60; Glucose Random 101 mg/dL (60-115); Potassium 4.1 mmol/L (3.3-5.1); Sodium 140 mmol/L (135-145); Total Protein 7.9 g/dL (6.5-8.0)
[2022-05-07 03:54] LABS: COVID-19 Test Negative (Negative); IDNOW Serial# 6674DD1D
[2022-05-07] MEDS: HYDROmorphone HCl 1 MG/ML SYRINGE IVPUSH (04:40)
--- NOTE | 2022-05-07 06:36 | PM.IMHP ---
History of Present Illness Date of Service: 05/07/22 Chief Complaint: abdominal pain 42-year-old male with past medical history of Crohn's disease as well as recurrent SBO presents to the hospital with complaints of abdominal pain. Patient reports that he has history of recurrent SBO in the setting of his history of Crohn's disease with multiple resections, as well as appendectomy and exploratory laparotomy in the past that he usually manages at home. Patient reports that he had 2 episodes within the last 1 week that he managed at home, he reports that his symptoms usually start after dinner, lasting all night and resolved by morning. This time his symptoms started after dinner time but was very severe, the abdominal pain was 10/10, constant, associated with episodes of shooting pain that lasts minutes. He use last bowel movement was 1/10 in the a.m., but has stopped passing gas since last night. Patient reports some nausea no vomiting, he has no chest pain, no shortness of breath, no urinary symptoms and no lower extremity edema. No numbness tingling. Reports that he follows with his specialist at [facility]. on arrival to the ED patient hemodynamically stable with no significant abnormal vitals Labs are significant for hemoglobin 13.1, hematocrit 39.8 otherwise unremarkable, KUB shows nonobstructive bowel gas pattern Patient received multiple rounds of pain medication including IV with minimal relief therefore being admitted for intractable abdominal pain Review of Systems Review of Systems: Yes all other systems are reviewed and are negative [facility] Medical History Acute Crohn's disease Anxiety Crohn's disease SBO (small bowel obstruction) Small bowel obstruction Small bowel obstruction Surgical History History of bowel resection History of bowel resection History of laparotomy Hx of appendectomy Social History Household Members: Spouse and Children Housing: House Do you presently have visiting nurse or other home services: No Alcohol intake: never Patient Tobacco Use Status: Never used Tobacco Second Hand Smoke Exposure: No Advance Directives: Yes Advance Directives on File: Yes Advance Directives Date on File: 02/17/22 service: Yes Current occupational status: employed and retired Meds Allergies Allergy/AdvReac Type Severity Reaction Status Date / Time Penicillins Allergy Mild RASH Verified 02/17/22 00:25 penicillin V Allergy Unknown rash Verified 02/17/22 00:25 Home Medications Medication Instructions Recorded Confirmed Last Taken Type ustekinumab 90 mg/mL subcutaneous 90 mg subcut Q4W 04/13/20 02/17/22 02/16/22 09:00 History syringe (Michaellara) Physical Exam Vital Signs and Narrative: Vital Signs: Last Vital Signs Temp 97.8 F 05/07/22 03:03 Pulse 60 05/07/22 05:24 Resp 16 05/07/22 05:24 BP 103/54 L 05/07/22 05:24 Pulse Ox 92 05/07/22 05:24 O2 Del Method 05/07/22 05:24 BMI result Body Mass Index 27.8 Const: General: cooperative and no acute distress Orientation/consciousness: patient oriented x3 Eyes: General: appearance normal, both eyes and all related structures Resp: Effort & Inspection: normal respiratory effort Auscultation: clear to auscultation bilaterally Cardio: Rate: regular rate Rhythm: regular rhythm GI: Other: hyperactive bowel sounds, tender to palpation Palpation (GI): Soft to palpation Skin: General skin exam: no rashes or lesions noted Neuro: General: patient oriented x3 Cognition (Neuro): normal cognition Extrem: General: Yes normal to inspection and Yes no pedal edema Results Labs 05/07/22 03:20 05/07/22 03:20 Labs: Laboratory Results - last 24 hr 05/07/22 05/07/22 05/07/22 03:20 03:20 03:27 MCV 86.1 MCH 28.9 MCHC 33.6 RDW 12.9 Plt Count 258 D MPV 9.9 Immature Gran % (Auto) 0.2 Neut % (Auto) 69.4 Lymph % (Auto) 18.6 L [place] % (Auto) 10.7 Eos % (Auto) 0.9 Baso % (Auto) 0.2 Lymph # (Auto) 1.7 [place] # (Auto) 1.0 Eos # (Auto) 0.1 Baso # (Auto) 0.0 Abs Immat Gran (auto) 0.02 Absolute Neuts (auto) 6.3 Absolute Nucleated RBC 0.000 Nucleated RBC % (auto) 0.0 Anion Gap 17 Estim Creat Clear Calc 95.4 Estimated GFR > 60 Random Glucose 101 Lactic Acid 0.8 Calcium 10.2 D Total Bilirubin 0.6 Direct Bilirubin 0.2 AST 23 ALT 13 Alkaline Phosphatase 57 Total Protein 7.9 Albumin 4.8 COVID-19 (RENÉ) COVID-19 Clin Com 05/07/22 03:27 MCV MCH MCHC RDW Plt Count MPV Immature Gran % (Auto) Neut % (Auto) Lymph % (Auto) [place] % (Auto) Eos % (Auto) Baso % (Auto) Lymph # (Auto) [place] # (Auto) Eos # (Auto) Baso # (Auto) Abs Immat Gran (auto) Absolute Neuts (auto) Absolute Nucleated RBC Nucleated RBC % (auto) Anion Gap Estim Creat Clear Calc Estimated GFR Random Glucose Lactic Acid Calcium Total Bilirubin Direct Bilirubin AST ALT Alkaline Phosphatase Total Protein Albumin COVID-19 (RENÉ) Negative COVID-19 Clin Com See Note Imaging Radiologist's Impressions: Impressions KUB X-Ray 05/07/22 03:50 IMPRESSION: Nonobstructive bowel gas pattern. Assessment and Plan (1) Intractable abdominal pain: Status: Acute (2) Crohn's disease: Qualifiers: Digestive disease complication type: with intestinal obstruction Gastrointestinal tract location: small intestine Qualified Code(s): K50.012 - Crohn's disease of small intestine with intestinal obstruction Status: Acute (3) Small bowel obstruction: Status: Acute Plan 42-year-old male with past medical history of Crohn's disease with recurrent small-bowel obstruction presents to the hospital with complaints of abdominal pain # intractable abdominal pain - likely secondary to clinical small-bowel obstruction - has history of small-bowel obstruction recurrent and over 40 episode in the past per patient - will treat with IV fluids, IV pain medication # Crohn's disease - not in flare - continue Stelara # small-bowel obstruction - clinical at this time - imaging shows nonobstructive bowel pattern - general surgery consult on hold , if pt sx worsen consider their input DVT prophylaxis: Early ambulation Time Spent With Patient Time: Total time managing care of this patient today ____ minutes. Quality Stroke Does the patient have a stroke diagnosis?: No VTE Prior VTE?: No VTE Risk Level:: Medical - moderate - high VTE Device Contraindication: Treatment Not Indicated VTE Drug Contraindication: Treatment Not Indicated
--- NOTE | 2022-05-07 07:23 | PC.NURSE ---
Report to ESTELA Wilkes
--- NOTE | 2022-05-07 07:54 | PHA.MEDREC ---
Pharmacy Consult ? Medication Reconciliation Pharmacy has completed the medication reconciliation. talked to pt
[2022-05-07] MEDS: Lactated Ringers 1,000 ML 100 ML IVCONT ×2 (09:07→17:43)
[2022-05-07] MEDS: 0.9 % Sodium Chloride Flush 3 ML SYRINGE IVFLUSH (09:08)
[2022-05-07] MEDS: HYDROmorphone HCl 1 MG/ML SYRINGE 0.5 MG IVPUSH (09:11)
--- NOTE | 2022-05-07 09:14 | PC.NURSE ---
Pt is refusing to go to ct at this time.
--- NOTE | 2022-05-07 11:58 | P.EN_ITS ---
Event Note Date of Service: 05/07/22 Event Note: 42-year-old male with past medical history of Crohn's disease with recurrent small-bowel obstruction presents to the hospital with complaints of abdominal pain Intractable abdominal pain possibly secondary to small-bowel obstruction history Crohn's disease and adhesions in the past with abdominal surgeries history of over 40 episodes of recurrent small-bowel obstruction Follows with specialist in [place] who recommended no further abdominal CT scans to avoid radiation KUB showed nonobstructive bowel pattern Patient has not had a bowel movement yet and not passing flatus Abdomen is soft Will start with clear fluids for now, IV fluids and pain management If symptoms do not improve consider General surgery consultation Crohn's disease Continue Stelara DVT prophylaxis with early ambulation Attending Dr. Lange Full code Time Spent With Patient Time: Total time managing care of this patient today ____ minutes.
[2022-05-07 17:04] LABS: Appearance Urine Clear; Color Urine Yellow; Glucose Urine UA Negative (Negative); Leukocyte Esterase Urine Negative (Negative); Nitrite Urine Negative (Negative); Specific Gravity - Urine >= 1.030 (1.005-1.025); Urine Blood Negative (Negative); Urine Ketones Trace mg/dL (Negative); Urine Protein Negative (Neg-Trace)
[2022-05-08] MEDS: Lactated Ringers 1,000 ML 100 ML IVCONT (02:51)
[2022-05-08 04:00] VITALS: BP 116/59; PULSE 56; RESP 16; TEMP 36.6; O2SAT 95
[2022-05-08 05:52] LABS: MANUAL DIFF FLAG NO
[2022-05-08 05:59] LABS: Basophils Percent Auto 0.5 % (0-2); Eosinophils Absolute Auto 0.2 X10*3/uL (0.0-0.4); Eosinophils Percent Auto 3.8 % (0-4); Hematocrit 40.2 % (42.0-52.0); Hemoglobin 12.9 g/dl (14.0-18.0); Imm Gran Abs Auto 0.01 X10*3/uL (0.00-0.03); Imm Gran Pct Auto 0.2 % (0.0-0.4); Lymphocytes Absolute Auto 1.8 X10*3/uL (1.2-4.9); Lymphocytes Percent Auto 41.4 % (20-40); Mean Corpuscular HGB Conc 32.1 g/dl (31.0-36.0); Mean Corpuscular Hemoglobin 29.1 pg (27.0-33.0); Mean Corpuscular Volume 90.7 fL (80.0-98.0); Mean Platelet Volume 10.7 fL (9.4-12.4); Monocytes Absolute Auto 0.5 X10*3/uL (0.1-1.2); Neutrophils Absolute Auto 1.8 x10*3/uL (2.0-8.3); Neutrophils Percent Auto 42.1 % (45-73); Platelet Count 202 X10*3/uL (160-400); Red Blood Count 4.43 X10*6/uL (4.60-5.80); White Blood Count 4.3 X10*3/uL (4.8-10.8)
[2022-05-08 06:43] LABS: Anion Gap 8 (12-20); Blood Urea Nitrogen 11 mg/dL (9-16); Calcium 8.5 mg/dL (8.4-10.2); Carbon Dioxide 28 mmol/L (22-29); Chloride 106 mmol/L (96-108); Creatinine Clr Calc Pharmacy 106.9; Estimated Glomerular Filt Rate > 60; Glucose Random 85 mg/dL (60-115); Potassium 4.2 mmol/L (3.3-5.1); Sodium 138 mmol/L (135-145)
[2022-05-08 08:00] VITALS: BP 131/65; PULSE 58; RESP 18; TEMP 36.4; O2SAT 95
--- NOTE | 2022-05-08 08:21 | P.CONGS_ITS ---
History of Present Illness Consult details Consult date: 05/08/22 Reason for consult: abdominal pain Narrative: 42 year old male patient well known to service with h/o Crohn's disease and several previous abdominal surgeries returning with complaints of abdominal pain in the mid abdomen. He reports several episodes during the past week which lasted several hours then resolved. The current episode lasted much longer therefore he presented to the ED. The pain began approximately 20 minutes after eating meatloaf. He reports waves of colicky pain which resolve only after hearing a loud gurgling sound. He was concerned his intestine would perforate with the severe spasms. He recently was evaluated with MR enterography in [place], which revealed no evidence of active Crohn's disease. He is due to have a colonoscopy in May. Review of Systems Review of Systems: Yes all other systems are reviewed and are negative Constitutional: Constitutional: Denies chills, Denies fever(s), Denies headache(s), Denies poor appetite and Denies weakness ENT: Denies headache(s) Cardiovascular: Cardiovascular: Denies chest pain, Denies irregular heart rhythm, Denies palpitations and Denies dyspnea Respiratory: Respiratory: Denies cough, Denies excessive phlegm production and Denies dyspnea Gastrointestinal: Gastrointestinal: Reports abdominal pain, Reports bloating, Denies change in bowel habits, Reports constipation, Denies heartburn, Denies diarrhea, Reports nausea and Denies vomiting Genitourinary: Genitourinary: Denies difficulty urinating and Denies urinary frequency Musculoskeletal: Musculoskeletal: Denies back pain, Denies muscle weakness and Denies numbness Integumentary/Breasts: Skin/Breast: Denies changing lesions and Denies unusual bruising Neurologic: Denies headache(s), Denies numbness, Denies paresthesias and Denies weakness Psychiatric: Psychiatric: Denies anxiety and Denies depression Endocrine: Endocrine: Denies palpitations Hematologic/Lymphatic: Hematologic/Lymphatic: Denies lymphadenopathy PMFSH Past Medical History Medical History Acute Crohn's disease Anxiety Crohn's disease SBO (small bowel obstruction) Small bowel obstruction Small bowel obstruction Surgical History Surgical History History of bowel resection History of bowel resection History of laparotomy Hx of appendectomy Social History Social History Household Members: Spouse and Children Housing: House Do you presently have visiting nurse or other home services: No Alcohol intake: never Patient Tobacco Use Status: Never used Tobacco Second Hand Smoke Exposure: No Advance Directives Date on File: 02/17/22 service: Yes Current occupational status: employed and retired Meds Allergies Allergy/AdvReac Type Severity Reaction Status Date / Time Penicillins Allergy Mild RASH Verified 02/17/22 00:25 penicillin V Allergy Unknown rash Verified 02/17/22 00:25 Active Medications: Current Medications Acetaminophen (Acetaminophen 325 Mg Tablet) 650 mg PO Q6H PRN PRN Reason: Pain, Mild (Pain Scale 1-3) Docusate Sodium (Docusate Sodium 100 Mg Capsule) 100 mg PO DAILY PRN PRN Reason: Constipation Hydromorphone HCl (Hydromorphone Hcl 1 Mg/Ml Syringe) 0.5 mg IVPUSH Q4H PRN; Protocol PRN Reason: Pain, Severe (Pain Scale 7-10) Last Admin: 05/07/22 09:11 Dose: 0.5 mg Hydroxyzine HCl (Hydroxyzine Hcl 50 Mg/Ml Vial) 25 mg IM Q6H PRN PRN Reason: anxiety Lactated Ringer's (Lr) 1,000 mls @ 100 mls/hr IVCONT .Q10H DEAN Last Admin: 05/08/22 02:51 Dose: 100 mls/hr Ondansetron HCl (Ondansetron Hcl 4 Mg/2 Ml Vial) 4 mg IVPUSH Q8H PRN PRN Reason: Nausea and Vomiting Last Admin: 05/07/22 09:11 Dose: 4 mg Sodium Chloride (0.9 % Sodium Chloride Flush 3 Ml Syringe) 3 ml IVFLUSH QSHIFT DEAN Last Admin: 05/08/22 07:19 Dose: Not Given Home Medications Medication Instructions Recorded Confirmed Last Taken Type ustekinumab 90 mg/mL subcutaneous 90 mg subcut Q4W 04/13/20 05/07/22 04/25/22 History syringe (Stelara) cholecalciferol (vitamin D3) 125 125 mcg PO MOWEFR 05/07/22 05/07/22 05/05/22 History mcg (5,000 unit) tablet lorazepam 1 mg tablet 1 mg PO DAILY PRN Anxiety 05/07/22 05/07/22 Unknown History zolpidem 10 mg tablet 10 mg PO BEDTIME PRN Insomnia 05/07/22 05/07/22 Unknown History Physical Exam Vital Signs: Vital Signs: Last Vital Signs Temp 98 F 05/08/22 04:00 Pulse 56 05/08/22 04:00 Resp 16 05/08/22 04:00 BP 116/59 L 05/08/22 04:00 Pulse Ox 95 05/08/22 04:00 O2 Del Method 05/08/22 04:00 BMI result Body Mass Index 28.0 Const: General: cooperative, healthy appearing, no acute distress, well developed, alert and awake Orientation/consciousness: patient oriented x3 Eyes: Sclerae: sclerae normal EOM: EOMs intact bilaterally Neck: Neck: Yes normal visual inspection, Yes full ROM and Yes no JVD Resp: Effort & Inspection: normal respiratory effort, no stridor and not tachypneic Auscultation: no rhonchi and no wheezes Cardio: Jugular venous distension: no JVD Rate: regular rate Rhythm: regular rhythm GI: Inspection: Yes normal to inspection and Yes scaphoid Palpation (GI): Soft to palpation, Tenderness to palpation present (GI) in the LLQ and in the RLQ, no guarding, not rigid and hepatosplenomegaly present Percussion: Yes normal to percussion Auscultation: normal bowel sounds Rectal Exam - Male: Yes deferred Abdomen image: 1. Skin: General skin exam: no rashes or lesions noted and dry skin Wounds: no wounds Neuro: General: patient oriented x3 Cognition (Neuro): normal cognition Extrem: General: Yes no clubbing, cyanosis or edema Results Labs 05/08/22 05:17 05/08/22 05:17 Labs: Abnormal lab results 05/07/22 05/08/22 05/08/22 Range/Units 16:30 05:17 05:17 WBC 4.3 L (4.8-10.8) X10*3/uL RBC 4.43 L (4.60-5.80) X10*6/uL Hgb 12.9 L (14.0-18.0) g/dl Hct 40.2 L (42.0-52.0) % Neut % (Auto) 42.1 L (45-73) % Lymph % (Auto) 41.4 H (20-40) % [place] % (Auto) 12.0 H (2-11) % Absolute Neuts (auto) 1.8 L (2.0-8.3) x10*3/uL Anion Gap 8 L (12-20) Ur Specific [place] >= 1.030 H (1.005-1.025) Short CBC 05/08/22 Range/Units 05:17 WBC 4.3 L (4.8-10.8) X10*3/uL Hgb 12.9 L (14.0-18.0) g/dl Hct 40.2 L (42.0-52.0) % Plt Count 202 (160-400) X10*3/uL BMP 05/08/22 05:17 Sodium 138 Potassium 4.2 Chloride 106 Carbon Dioxide 28 BUN 11 Creatinine 1.03 Calcium 8.5 D Urine 05/07/22 Range/Units 16:30 Urine Color Yellow Urine Appearance Clear Urine pH 6.0 (5.0-9.0) Ur Specific [place] >= 1.030 H (1.005-1.025) Urine Protein Negative (Neg-Trace) mg/dL Urine Glucose (UA) Negative (Negative) mg/dL All other labs normal. Assessment and Plan (1) Small bowel obstruction: Status: Acute (2) Intractable abdominal pain: Status: Acute (3) Crohn's disease: Qualifiers: Digestive disease complication type: with intestinal obstruction Gastrointestinal tract location: small intestine Qualified Code(s): K50.012 - Crohn's disease of small intestine with intestinal obstruction Status: Acute Plan 42 year old male with recurrent abdominal pain as noted in HPI. Exam today is improved with decreased tenderness and no tympany. Symptoms seem different with more upper GI symptoms. He is due for colonoscopy in May and perhaps an upper endoscopy can be added. He will discuss this with his community liaison. No surgical intervention at this time. Time Spent With Patient Time: Total time managing care of this patient today ____ minutes. Procedures Date of Service Date of Service: 05/08/22
--- NOTE | 2022-05-08 11:47 | MHC.CM.PN ---
Addendum entered by aRdha Houston 05/08/22 14:34: PT WILL DC HOME TODAY Addendum entered by Radha Houston 05/08/22 11:47: PT LIVES WITH HIS AND IS INDEPENDENT WITH CARE, WORKS AND DRIVES PT HAS NO SERVICES AND NO DME PT IS NOT COVID [facility]AX PCP: ELTON DENNY COPY OF HCP REQUESTED Original Note: DCP: HOME NO SERVICES PT TO ARRANGE TRANSPORT
--- NOTE | 2022-05-08 13:49 | P.DS_ITS ---
DS: Providers Provider Date of Service: 05/08/22 Date of admission: 05/07/22 06:35 Date of discharge: 05/08/22 Primary care physician: Christopher Lebron DO, MD Consults: 05/07/22 15:04 Consult to General Surgery Routine Consulting Provider: Igor Peters Reason for consultation: abdominal pain, multiple sbo in the past Attending physician on discharge: Robe Lange Discharging clinician: Juani Lemon DS: Diagnosis Discharge Diagnosis (1) Small bowel obstruction: Status: Acute (2) Intractable abdominal pain: Status: Acute (3) Crohn's disease: Status: Acute DS: Summary Hospital Course Hospital Course: From H&P on day of admission 42-year-old male with past medical history of Crohn's disease as well as recurrent SBO presents to the hospital? with complaints of abdominal pain.? Patient reports that he has history of recurrent SBO in the setting of his history of Crohn's disease with multiple resections, as well as appendectomy? and exploratory laparotomy in the past that he usually manages at home.? Patient reports that he had 2 episodes within the last 1 week that he managed at home, he reports that his symptoms usually start after dinner, lasting all night and resolved by morning.? This time his symptoms started after dinner time but was very severe, the abdominal pain was 10/10, constant, associated with? episodes of shooting pain that lasts minutes.? He use last bowel movement was 1/10? in the a.m., but has stopped? passing gas since last night.? Patient reports some nausea no vomiting,? he has no chest pain, no shortness of breath, no urinary symptoms and no lower extremity edema.? No numbness tingling. ? Reports that he follows with his specialist at [facility]. ?on arrival to the ED patient hemodynamically stable with? no significant abnormal vitals Labs are significant for? hemoglobin 13.1, hematocrit 39.8 otherwise unremarkable, ?KUB shows nonobstructive bowel gas pattern Patient received multiple rounds of pain medication including IV with minimal relief therefore being admitted for intractable abdominal pain patient was initially made NPO, advanced to clear liquids. KUB showed a nonobstructive bowel gas pattern. Patient's pain resolved. He was seen by General surgery who recommended no acute surgical intervention. Patient has had multiple partial bowel obstructions and bowel obstructions in the past. He requested to have his diet advanced this morning, was able to tolerate a regular diet. He is passing gas, recommended to stay for bowel movement but prefers to go home at this time. 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 He has been in contact with him and plans to follow-up with them in the near future. He is encouraged to return to the emergency department if he develops recurrent abdominal pain. Time Spent with Patient Time attestation: Total time managing care of this patient today ____ minutes. Discharge coordination time: Greater than 30 minutes Quality: Safe Use of Opioids Does Pt have an Active Cancer Diagnosis on the Problem List?: No Quality: Stroke Does the patient have a stroke diagnosis?: No Physical Exam Vital Signs: Vital Signs: Last Vital Signs Temp 97.6 F 05/08/22 08:00 Pulse 58 05/08/22 08:00 Resp 18 05/08/22 08:00 BP 131/65 05/08/22 08:00 Pulse Ox 95 05/08/22 08:00 O2 Del Method 05/08/22 08:00 BMI result Body Mass Index 28.0 Const: General: cooperative, comfortable, no acute distress, alert and awake Orientation/consciousness: patient oriented x3 Resp: Effort & Inspection: normal respiratory effort and able to speak in complete sentences Auscultation: clear to auscultation bilaterally Cardio: Rate: regular rate Heart sounds: S1 normal heart sound present and S2 normal heart sound present GI: Inspection: No distended Palpation (GI): Soft to palpation and nontender Neuro: General: patient oriented x3 and CN's II-XI intact bilaterally Extrem: General: No no pedal edema DS: Data Data Completed and Pending Labs on day of discharge: Laboratory Results - last 24 hr 05/07/22 05/08/22 05/08/22 16:30 05:17 05:17 WBC 4.3 L RBC 4.43 L Hgb 12.9 L Hct 40.2 L MCV 90.7 MCH 29.1 MCHC 32.1 RDW 13.0 Plt Count 202 MPV 10.7 Immature Gran % (Auto) 0.2 Neut % (Auto) 42.1 L Lymph % (Auto) 41.4 H [place] % (Auto) 12.0 H Eos % (Auto) 3.8 Baso % (Auto) 0.5 Lymph # (Auto) 1.8 [place] # (Auto) 0.5 Eos # (Auto) 0.2 Baso # (Auto) 0.0 Abs Immat Gran (auto) 0.01 Absolute Neuts (auto) 1.8 L Absolute Nucleated RBC 0.000 Nucleated RBC % (auto) 0.0 Sodium 138 Potassium 4.2 Chloride 106 Carbon Dioxide 28 Anion Gap 8 L BUN 11 Creatinine 1.03 Estim Creat Clear Calc 106.9 Estimated GFR > 60 Random Glucose 85 Calcium 8.5 D Urine Color Yellow Urine Appearance Clear Urine pH 6.0 Ur Specific [place] >= 1.030 H Urine Protein Negative Urine Glucose (UA) Negative Urine Ketones Trace Urine Blood Negative Urine Nitrite Negative Ur Leukocyte Esterase Negative Discharge Plan Discharge Anticipated Discharge Date/Time: 05/08/22 13:47 Patient Disposition: Home, Self-Care Discharge Diagnosis: abdominal pain Referrals: Christopher Lebron DO, MD [Primary Care Provider] - 1 Week Discharge Medications: Continued Stelara 90 mg/mL Syringe 90 mg SUBCUT Q4W lorazepam 1 mg tablet 1 mg PO DAILY PRN (Reason: Anxiety) zolpidem 10 mg tablet 10 mg PO BEDTIME PRN (Reason: Insomnia) cholecalciferol (vitamin D3) 125 mcg (5,000 unit) Tablet 125 mcg PO MOWEFR Discharge Orders: Discharge Order (Routine); Ordered 05/08/22 Ordered By: Juani Lemon Activity on Discharge: As tolerated Stand Alone Forms: Patient Portal Discharge page Care Plan Goals: see below Health Concerns: abdominal pain Plan of Treatment: abdominal pain resolved call to schedule follow-up appointment with primary surgeon /rubber mold maker return to the ED with recurrent abdominal pain Assessment: see discharge summary
== END 2022-05-08 15:55 | disposition home or self-care (01) ==
LOC: HO.ED 05:44 → HO.EDOVER 06:41 → HO.S3 15:05
PROVIDERS: Admitting Provider Internal Medicine; Emergency Provider Emergency Medicine; PCP Internal Medicine; Visit Provider Physician Assistant Medical
DX: R10.9 Unspecified abdominal pain (principal); K50.012 Crohn's disease of small intestine with intestinal obstruction; Z20.822 Contact with and (suspected) exposure to COVID-19; F41.9 Anxiety disorder, unspecified; Z79.899 Other long term (current) drug therapy
CPT/HCPCS: 36415; 74018; 80048; 80053; 81003; 82248; 83605; 85025; 87635; 93005; 96361; 96374; 96375; 96376; 99221; 99285; J1170; J2270; J2405

== ENCOUNTER 2024-10-11 00:05 | Inpatient (IN) | payer OTHER, SELFPAY ==
[2024-10-11] VITALS (9 sets, daily range): BP systolic 106–138; BP diastolic 60–87; PULSE 50–76; RESP 16–18; TEMP 36.6–37; O2SAT 94–100; BMI 29.0; BMI 28.9
--- NOTE | ~2024-10-11 | XR_ITS ---
CLINICAL HISTORY: SBO, Abdomina pain 1 view abdomen Comparison: None Findings: No pneumoperitoneum or pneumatosis. Moderate fecal loading in the right colon. Mildly prominent loop of small bowel in the mid left abdomen. No abnormal calcifications. No acute fractures. IMPRESSION: Mildly prominent loop of small bowel in the mid left abdomen which may be due to ileus. This document has been electronically signed by: Julio Nation MD on 10/11/2024 02:09:19
--- NOTE | ~2024-10-11 | XR_ITS ---
CLINICAL HISTORY: NG tube placement 1 view chest x-ray Comparison: None Findings: No consolidation or effusion. Normal size heart. No acute fracture. IMPRESSION: NG tube is at the fundus of stomach. This document has been electronically signed by: Aston Caro MD on 10/11/2024 03:56:37
[2024-10-11 00:43] LABS: MANUAL DIFF FLAG NO
[2024-10-11 00:45] LABS: Basophils Percent Auto 0.3 % (0-2); Eosinophils Absolute Auto 0.1 X10*3/uL (0.0-0.4); Eosinophils Percent Auto 1.3 % (0-4); Hematocrit 48.1 % (42.0-52.0); Hemoglobin 16.4 g/dl (14.0-18.0); Imm Gran Abs Auto 0.02 X10*3/uL (0.00-0.03); Imm Gran Pct Auto 0.2 % (0.0-0.4); Lymphocytes Absolute Auto 2.5 X10*3/uL (1.2-4.9); Mean Corpuscular HGB Conc 34.1 g/dl (31.0-36.0); Mean Corpuscular Hemoglobin 29.2 pg (27.0-33.0); Mean Corpuscular Volume 85.6 fL (80.0-98.0); Mean Platelet Volume 9.8 fL (9.4-12.4); Monocytes Absolute Auto 0.9 X10*3/uL (0.1-1.2); Monocytes Percent Auto 9.5 % (2-11); Neutrophils Percent Auto 62.7 % (45-73); Platelet Count 267 X10*3/uL (160-400); Red Blood Count 5.62 X10*6/uL (4.60-5.80); White Blood Count 9.5 X10*3/uL (4.8-10.8)
[2024-10-11] MEDS: Morphine Sulfate 4 MG/ML CARTRIDGE IVPUSH (00:55)
[2024-10-11] MEDS: ondansetron HCL 4 MG/2 ML VIAL IVPUSH ×2 (00:55→09:30)
--- NOTE | 2024-10-11 00:59 | PC.NURSE ---
pt states he does not want a CT scan. wants to know if an xray or MRI can be done instead. pt states he has had 100 bowel obstructions before and knows what this pain is. MD aware pt medicated per mar, #20g iv placed in LAC
[2024-10-11 01:04] LABS: Alanine Aminotransferase 28 U/L (0-40); Albumin Level 4.9 g/dL (3.5-5.0); Alkaline Phosphatase 63 U/L (39-117); Anion Gap 16 (12-20); Aspartate Amino Transferase 30 U/L (5-37); Bilirubin Direct 0.2 mg/dL (0.0-0.5); Bilirubin Total 0.4 mg/dL (0.0-1.0); Blood Urea Nitrogen 25 mg/dL (9-16); Calcium 10.3 mg/dL (8.4-10.2); Carbon Dioxide 28 mmol/L (22-29); Chloride 103 mmol/L (96-108); Creatinine Clr Calc Pharmacy 86.8; Estimated Glomerular Filt Rate > 60; Glucose Random 110 mg/dL (60-115); Lipase 33 U/L (8-78); Magnesium 2.3 mg/dL (1.6-2.6); Potassium 4.3 mmol/L (3.3-5.1); Sodium 143 mmol/L (135-145); Total Protein 8.2 g/dL (6.5-8.0)
[2024-10-11 01:11] LABS: Lactic Acid 1.1 mmol/L (0.5-2.0)
--- NOTE | 2024-10-11 01:16 | ED_ITS ---
HPI - Abdominal Pain General Chief Complaint: Abdominal Pain Stated Complaint: bowl obstruction Time Seen by Provider: 10/11/24 01:01 Source: patient Mode of arrival: ambulatory Limitations: no limitations History of Present Illness ED Provider: HPI narrative: 44-year-old male with history of Crohn's disease, recurrent SBO nose, prior surgeries for ex lap, lysis of adhesions, presenting with obstipation that started around 17:30, he states last time he was in the hospital for this was 2 and half years ago, he was told he needs a surgery but he went on a meat only diet and he states his symptoms have been better since then. Related Data Home Medications ?Medication ?Instructions ?Recorded ?Confirmed ustekinumab 90 mg/mL subcutaneous 90 mg subcut Q4W 04/13/20 05/07/22 syringe (Stelara) cholecalciferol (vitamin D3) 125 125 mcg PO MOWEFR 05/07/22 05/07/22 mcg (5,000 unit) tablet lorazepam 1 mg tablet 1 mg PO DAILY PRN Anxiety 05/07/22 05/07/22 zolpidem 10 mg tablet 10 mg PO BEDTIME PRN Insomnia 05/07/22 05/07/22 Allergies Allergy/AdvReac Type Severity Reaction Status Date / Time Penicillins Allergy Mild RASH Verified 10/11/24 00:19 penicillin V Allergy Unknown rash Verified 10/11/24 00:19 Review of Systems Constitutional: Reports as per HPI [facility] Past Medical History Medical History Acute Crohn's disease Anxiety Crohn's disease SBO (small bowel obstruction) Small bowel obstruction Small bowel obstruction Surgical History History of bowel resection History of bowel resection History of laparotomy Hx of appendectomy Social History Social History Household Members: Spouse and Children Housing: House Do you presently have visiting nurse or other home services: No Alcohol intake: never Comment: Pt sleeping on stretcher in NAD without signs of pain/discomfort present Patient Tobacco Use Status: Never used Tobacco Second Hand Smoke Exposure: No Use of substances other than those prescribed or required for medical reasons: No Advance Directives: Yes Advance Directives on File: Yes Advance Directives Date on File: 02/17/22 service: Yes Current occupational status: employed and retired Physical Exam ED Vital Signs: Vital Signs - 24 hr 10/11/24 00:12 10/11/24 03:35 10/11/24 05:52 Temperature 98.1 F 98.4 F 98.6 F Pulse Rate 76 58 50 Respiratory Rate 18 18 16 Blood Pressure 138/87 119/64 106/60 Pulse Oximetry 100 94 98 Oxygen Delivery Method Room Air Room Air Room Air BMI result Body Mass Index 29.0 Const Other: * Gen: ?Overall well-appearing patient * HEENT: PERRLA, EOMI, MMM, * Neck: Supple, no LAD * CV: RRR, no obvious murmurs appreciated * Resp: ?No wheezing rales rhonchi no stridor moving air well * Abd: ?Distended, tender, decreased bowel sounds throughout * MSK: FROM, strength 5/5 all extremities * Skin: Warm, dry, intact, * Neuro: ?Alert and oriented x3, moving upper and lower extremities symmetrically, no obvious facial asymmetry noted Medical Decision Making Medical Decision Making MDM Narrative: Clinically patient is presenting with what appears to be an SBO in the setting of Crohn's with prior SBO is a 2 to adhesions, he states overall his Crohn's is under good control with Stelara. We will medicate for pain, we will confirm SBO with an x-ray, patient states he has had multiple CTs in the past he is worried about radiation exposure states surgeon in [place] told him that he should not have more CTs and he is also being worked up for potential thyroid nodules and so he is cautious about that, I think it is reasonable, we will medicate for pain, we will obtain KUB, I did do a bedside ultrasound of his abdomen and noted bowel dilation with stool shower noted, overall ultrasound is suggestive of an SBO. 01:43 patient's KUB shows stool burden, it does not show x-ray findings for SBO, and x-ray is not very sensitive, the last time he had a CT of the system he had a CT evidence for SBO and then he had an x-ray after NG tube placement and the x-ray appeared to be similar and does not really show distended loop of bowels, I will discuss with the patient I will offer NG tube to his based on his symptoms and my ultrasound findings and then I will speak to surgery or medical team. 230am, Dr. Leroy is going to see patient at 7am, pt updated, NGT is functioning well, 7am care s/o to incoming provider Differential Diagnosis Differential Diagnoses: The differential diagnosis associated with the presentation includes SBO, bowel per, volvulus, diverticulitis, appendicitis, pancreatitis Admission/Observation Consideration of admission/observation: Escalation of care including admission/observation considered Lab Data 10/11/24 00:39 10/11/24 00:39 Labs: Lab Results 10/11/24 10/11/24 Range/Units 00:39 00:52 WBC 9.5 (4.8-10.8) X10*3/uL RBC 5.62 D (4.60-5.80) X10*6/uL Hgb 16.4 D (14.0-18.0) g/dl Hct 48.1 (42.0-52.0) % MCV 85.6 (80.0-98.0) fL MCH 29.2 (27.0-33.0) pg MCHC 34.1 (31.0-36.0) g/dl RDW 13.0 (11.0-16.0) % Plt Count 267 D (160-400) X10*3/uL MPV 9.8 (9.4-12.4) fL Immature Gran % (Auto) 0.2 (0.0-0.4) % Neut % (Auto) 62.7 (45-73) % Lymph % (Auto) 26.0 (20-40) % Travis % (Auto) 9.5 (2-11) % Eos % (Auto) 1.3 (0-4) % Baso % (Auto) 0.3 (0-2) % Lymph # (Auto) 2.5 (1.2-4.9) X10*3/uL Travis # (Auto) 0.9 (0.1-1.2) X10*3/uL Eos # (Auto) 0.1 (0.0-0.4) X10*3/uL Baso # (Auto) 0.0 (0.0-0.2) X10*3/uL Abs Immat Gran (auto) 0.02 (0.00-0.03) X10*3/uL Absolute Neuts (auto) 6.0 (2.0-8.3) x10*3/uL Absolute Nucleated RBC 0.000 (0.0-0.012) X10*3/uL Nucleated RBC % (auto) 0.0 (0.0-0.2) /100WBC Sodium 143 (135-145) mmol/L Potassium 4.3 (3.3-5.1) mmol/L Chloride 103 (96-108) mmol/L Carbon Dioxide 28 (22-29) mmol/L Anion Gap 16 (12-20) BUN 25 H (9-16) mg/dL Creatinine 1.26 (0.5-1.4) mg/dL Estim Creat Clear Calc 86.8 Estimated GFR > 60 Random Glucose 110 (60-115) mg/dL Lactic Acid 1.1 (0.5-2.0) mmol/L Calcium 10.3 H D (8.4-10.2) mg/dL Magnesium 2.3 (1.6-2.6) mg/dL Total Bilirubin 0.4 (0.0-1.0) mg/dL Direct Bilirubin 0.2 (0.0-0.5) mg/dL AST 30 (5-37) U/L ALT 28 (0-40) U/L Alkaline Phosphatase 63 (39-117) U/L C-Reactive Protein 0.10 (< or = 0.50) mg/dL Total Protein 8.2 H (6.5-8.0) g/dL Albumin 4.9 (3.5-5.0) g/dL Lipase 33 (8-78) U/L Independent Interpretation I performed an independent interpretation of an: Plain X-Ray (Stool burden noted in right colon, no dilated bowel pattern noted) Medications Administered Discontinued Medications Generic Name Dose Route Start Last Admin Trade Name Freq PRN Reason Stop Dose Admin Hydromorphone HCl 1.5 mg 10/11/24 01:15 10/11/24 01:49 Hydromorphone Hcl 2 Mg/Ml Vial IVPUSH 10/11/24 01:16 1.5 mg ONCE ONE Administration Protocol Hydromorphone HCl 1.5 mg 10/11/24 03:27 10/11/24 03:40 Hydromorphone Hcl 2 Mg/Ml Vial IVPUSH 10/11/24 03:28 1.5 mg ONCE ONE Administration Protocol Sodium Chloride 1,000 mls @ 999 mls/hr 10/11/24 01:15 10/11/24 02:52 Ns IV 10/11/24 02:15 Infused .Q1H1M DEAN Infusion Morphine Sulfate 4 mg 10/11/24 00:43 10/11/24 00:55 Morphine Sulfate 4 Mg/Ml Cartridge IVPUSH 10/11/24 00:44 4 mg ONCE ONE Administration Protocol Ondansetron HCl 4 mg 10/11/24 00:43 10/11/24 00:55 Ondansetron Hcl 4 Mg/2 Ml Vial IVPUSH 10/11/24 00:44 4 mg ONCE ONE Administration Discharge Plan Discharge Clinical Impression: SBO (small bowel obstruction) Prescriptions: No Action Stelara 90 mg/mL Syringe 90 mg SUBCUT Q4W lorazepam 1 mg tablet 1 mg PO DAILY PRN (Reason: Anxiety) zolpidem 10 mg tablet 10 mg PO BEDTIME PRN (Reason: Insomnia) cholecalciferol (vitamin D3) 125 mcg (5,000 unit) Tablet 125 mcg PO MOWEFR Print Language: Armenian
[2024-10-11] MEDS: HYDROmorphone HCl 2 MG/ML VIAL 1.5 MG IVPUSH ×2 (01:49→03:40)
[2024-10-11] MEDS: 0.9 % Sodium Chloride 1,000 ML 999 ML IV (01:50)
--- NOTE | 2024-10-11 02:23 | PC.NURSE ---
Addendum entered by Gely Marquis 10/11/24 02:25: positive on auscultation Original Note: 16 fr. NG tub placed to left nare, intermittent suction to 60-120, pt tolerated well
--- NOTE | 2024-10-11 07:11 | PC.NURSE ---
Addendum entered by Traci Pereyra RN 10/11/24 07:52: Patent is a 44 yo male who presented with what appears to be an SBO in the setting of Crohn's with prior SBO is a 2 to adhesions, he states overall his Crohn's is under good control with Stelara. Patient states he has had multiple CTs in the past he is worried about radiation exposure states surgeon in [place] told him that he should not have more CTs and he is also being worked up for potential thyroid nodules. KUB performed, and a bedside ultrasound of his abdomen and noted bowel dilation with stool noted, overall ultrasound is suggestive of an SBO. Patient alert and oriented. Lungs clear bilat. Respirations even and non-labored. Abdomen sl firm, with c/o yaima umbilical pain. NGT patent and intact and has drained a small amount of read fluid. Positive pedal pulses with no edema. Original Note: Medical History Acute Crohn's disease Anxiety Crohn's disease Small bowel obstruction Surgical History History of bowel resection History of laparotomy Hx of appendectomy
[2024-10-11] MEDS: HYDROmorphone HCl 1 MG/ML SYRINGE IVPUSH (07:44)
[2024-10-11] MEDS: Lactated Ringers 1,000 ML 100 ML IVCONT ×2 (07:45→17:02)
--- NOTE | 2024-10-11 08:03 | PM.HPGS ---
History of Present Illness History of Present Illness Date of Service: 10/14/24 Chief complaint: small bowl obstruction Narrative: Justin Jorge is a 40 year old male well-known to the service with a long history of Crohn's disease and multiple admissions for small-bowel obstructions most recently in 2021, here because of another episode of abdominal pain. His most recent surgery Crohn's disease occurred approximately 7 years ago and was performed in [place]. He reports the onset of abdominal pain diffusely starting yesterday afternoon. He does not recall when his last bowel movement and flatus was. He admits to nausea but no vomiting. The pain is described as crampy but occasionally increases in severity. He says that this episode is the same as his previous multiple episodes. He has had very many CAT scans already and refuses to have another CAT scan. He had a KUB which showed heavy stool volume. In view of his pain consistent with his previous episodes of small-bowel obstruction, he is being admitted to our service. [facility] Past Medical History Medical History Acute Crohn's disease Anxiety Crohn's disease SBO (small bowel obstruction) Small bowel obstruction Small bowel obstruction Surgical History Surgical History History of bowel resection History of bowel resection History of laparotomy Hx of appendectomy Social History Social History Household Members: Family Housing: House Do you presently have visiting nurse or other home services: No Alcohol intake: never Comment: Pt sleeping on stretcher in [facility] without signs of pain/discomfort present Patient Tobacco Use Status: Never used Tobacco Second Hand Smoke Exposure: No Advance Directives Date on File: 02/17/22 service: No Current occupational status: employed and retired Meds Allergies Allergy/AdvReac Type Severity Reaction Status Date / Time Penicillins Allergy Mild RASH Verified 10/11/24 00:19 penicillin V Allergy Unknown rash Verified 10/11/24 00:19 Active Medications: Current Medications Acetaminophen (Acetaminophen 325 Mg Tablet) 650 mg PO Q6H PRN PRN Reason: Pain, Mild 1-3,fever,headache Heparin Sodium (Porcine) (Heparin Sodium,Porcine 5,000 Unit/Ml Vial) 5,000 unit SUBCUT Q8H DEAN Hydromorphone HCl (Hydromorphone Hcl 1 Mg/Ml Syringe) 0.5 mg IVPUSH Q4H PRN; Protocol PRN Reason: Pain, Severe (Pain Scale 7-10) Lactated Ringer's (Lr) 1,000 mls @ 100 mls/hr IVCONT .Q10H [facility] Last Admin: 10/11/24 07:45 Dose: 100 mls/hr Melatonin (Melatonin 3 Mg Tablet) 6 mg PO BEDTIME PRN PRN Reason: Insomnia Ondansetron HCl (Ondansetron Hcl 4 Mg/2 Ml Vial) 4 mg IVPUSH Q6H PRN PRN Reason: nausea Sodium Chloride (0.9 % Sodium Chloride Flush 3 Ml Syringe) 3 ml IVFLUSH QSHIFT [facility] Last Admin: 10/11/24 07:51 Dose: Not Given Home Medications ?Medication ?Instructions ?Recorded ?Confirmed ?Last Taken ?Type ustekinumab 90 mg/mL subcutaneous 90 mg subcut Q4W 04/13/20 10/11/24 1 Month Ago History syringe (Stelara) ~09/10/24 magnesium oxide 400 mg PO DAILY 10/11/24 10/11/24 10/09/24 History vitamin D3 25 mcg (1,000 unit)-vit 1 tab PO DAILY 10/11/24 10/11/24 10/09/24 History K2 90 mcg disintegrating tablet vitamin K2 100 mcg capsule 100 mcg PO DAILY 10/11/24 10/11/24 10/09/24 History Physical Exam Vital Signs: Vital Signs: Last Vital Signs Temp 97.9 F 10/11/24 07:16 Pulse 53 10/11/24 07:16 Resp 18 10/11/24 07:16 BP 112/64 10/11/24 07:16 Pulse Ox 97 10/11/24 07:16 O2 Del Method Room Air 10/11/24 07:16 BMI result Body Mass Index 29.0 Results Results Labs: Short CBC 10/11/24 Range/Units 00:39 WBC 9.5 (4.8-10.8) X10*3/uL Hgb 16.4 D (14.0-18.0) g/dl Hct 48.1 (42.0-52.0) % Plt Count 267 D (160-400) X10*3/uL BMP 10/11/24 00:39 Sodium 143 Potassium 4.3 Chloride 103 Carbon Dioxide 28 BUN 25 H Creatinine 1.26 Calcium 10.3 H D Liver Function 10/11/24 Range/Units 00:39 Total Bilirubin 0.4 (0.0-1.0) mg/dL Direct Bilirubin 0.2 (0.0-0.5) mg/dL AST 30 (5-37) U/L ALT 28 (0-40) U/L Alkaline Phosphatase 63 (39-117) U/L Albumin 4.9 (3.5-5.0) g/dL Assessment and Plan (1) SBO (small bowel obstruction): Status: Acute 44-year-old male with known Crohn's disease, with history of bowel resection in the past, here because of abdominal pain. He has been admitted multiple times because of exactly the same symptoms. He has had multiple CAT scans as well and refuses to have another CAT scan today We will admit him. An NG tube has been in place. He will be on Dilaudid for pain control. His abdomen is soft and benign otherwise. He is hemodynamically stable. His KUB shows mildly dilated small bowel loops in the left hemiabdomen. Quality Stroke Does the patient have a stroke diagnosis?: No VTE Prior VTE?: No VTE Risk Level:: Medical - moderate - high VTE Device Contraindication: N/A - Device Ordered VTE Drug Contraindication: N/A - Med Ordered Procedures Date of Service Date of Service: 10/14/24
--- NOTE | 2024-10-11 08:27 | PHA.MEDREC ---
Addendum entered by Stephanie Burkett [facility] 10/11/24 08:58: reviewed Original Note: Pharmacy Consult ? Medication Reconciliation Pharmacy has completed the medication reconciliation. Spoke with pt and he confirmed the Stelara once Q4W and stated he last got it about 1 month ago from a speciality facility. He confirmed he takes Vitamin D3-K2 once daily with an additional Vitamin K2 tablet once daily a Magnesium 400mg tab once daily.
--- NOTE | 2024-10-11 14:03 | PM.EVENT ---
Event Note Date of Service: 10/11/24 Event Note: Seen on afternoon rounds He says his pain is better No nausea or vomiting Abdomen is soft, no guarding, no rebound, some diffuse tenderness Clinically looks well NG tube in place with minimal Pain management IV fluids Continue current care Family at bedside Time Spent With Patient Time: Total time managing care of this patient today ____ minutes.
[2024-10-11] MEDS: HYDROmorphone HCl 1 MG/ML SYRINGE 0.5 MG IVPUSH ×2 (17:26→22:10)
--- NOTE | 2024-10-11 22:44 | MHC.PIE ---
p; pt c/o pain to throat/abd, ache/burn 11/03. prn dilaudid given for pain. note; pt has NGT, ? throat spray? i; dr brannon notified. no new orders at this time e; will cont to monitor
[2024-10-12] MEDS: Lactated Ringers 1,000 ML 100 ML IVCONT (02:32)
[2024-10-12 02:33] VITALS: BP 132/62; PULSE 79; RESP 18; TEMP 36.9; O2SAT 97
--- NOTE | 2024-10-12 02:36 | MHC.PIE ---
p; pt found with ngt out, pt reports pulling out ngt because it hurts now pt refusing another ngt insertion at this time i; dr brannon notified e; will cont to monitor
[2024-10-12 06:22] LABS: Hemoglobin 14.2 g/dl (14.0-18.0); Mean Corpuscular Hemoglobin 29.2 pg (27.0-33.0); Mean Corpuscular Volume 88.3 fL (80.0-98.0); Mean Platelet Volume 10.1 fL (9.4-12.4); Platelet Count 221 X10*3/uL (160-400); Red Blood Count 4.87 X10*6/uL (4.60-5.80); Red Cell Distribution Width 12.9 % (11.0-16.0); White Blood Count 7.1 X10*3/uL (4.8-10.8)
[2024-10-12 06:26] LABS: Anion Gap 10 (12-20); Blood Urea Nitrogen 14 mg/dL (9-16); Calcium 8.8 mg/dL (8.4-10.2); Carbon Dioxide 30 mmol/L (22-29); Chloride 106 mmol/L (96-108); Creatinine Clr Calc Pharmacy 111.4; Estimated Glomerular Filt Rate > 60; Glucose Random 98 mg/dL (60-115); Potassium 4.3 mmol/L (3.3-5.1); Sodium 142 mmol/L (135-145)
--- NOTE | 2024-10-12 07:24 | P.PNGS_ITS ---
Subjective Subjective Date of Service: 10/12/24 <Clarence Hoffman PA-C - Last Filed: 10/12/24 07:51> 10/12/24 <Alexandre Leroy MD - Last Filed: 10/12/24 08:06> Patient reports: feels better <Clarence Hoffman PA-C - Last Filed: 10/12/24 07:51> Interval history: Patient doing well, removed his own NG tube overnight due to discomfort in this throat. he feels less distended. Denies nausea, vomiting. pain is improved. Reports passing gas, no BM <Clarence Hoffman PA-C - Last Filed: 10/12/24 07:51> Physical Exam 2 Vital Signs: Vital Signs: Last Vital Signs Temp 98.5 F 10/12/24 02:33 Pulse 79 10/12/24 02:33 Resp 18 10/12/24 02:33 BP 132/62 10/12/24 02:33 Pulse Ox 97 10/12/24 02:33 O2 Del Method Room Air 10/12/24 02:33 BMI result Body Mass Index 28.9 <Clarence Hoffman PA-C - Last Filed: 10/12/24 07:51> Const: General: comfortable and no acute distress <Clarence Hoffman PA-C - Last Filed: 10/12/24 07:51> Orientation/consciousness: patient oriented x3 <Clarence Hoffman PA-C - Last Filed: 10/12/24 07:51> GI: Inspection: No distended <Clarence Hoffman PA-C - Last Filed: 10/12/24 07:51> Palpation (GI): Soft to palpation, not firm, nontender, no guarding and not rigid <Clarence Hoffman PA-C - Last Filed: 10/12/24 07:51> Neuro: General: patient oriented x3 <MARGRET Williamson Last Filed: 10/12/24 07:51> Objective Data Active Medications Acetaminophen (Acetaminophen 325 Mg Tablet) 650 mg PO Q6H PRN PRN Reason: Pain, Mild 1-3,fever,headache Benzocaine (Throat Lozenge, Medicated Lozenge) 1 lozenge MUCOUS MEM Q2H PRN PRN Reason: Sore Throat Heparin Sodium (Porcine) (Heparin Sodium,Porcine 5,000 Unit/Ml Vial) 5,000 unit SUBCUT Q8H DEAN Hydromorphone HCl (Hydromorphone Hcl 1 Mg/Ml Syringe) 0.5 mg IVPUSH Q4H PRN; Protocol PRN Reason: Pain, Severe (Pain Scale 7-10) Last Admin: 10/11/24 22:10 Dose: 0.5 mg Documented By: GREGG Lactated Ringer's (Lr) 1,000 mls @ 100 mls/hr IVCONT .Q10H DEAN Last Admin: 10/12/24 02:32 Dose: 100 mls/hr Documented By: GREGG Melatonin (Melatonin 3 Mg Tablet) 6 mg PO BEDTIME PRN PRN Reason: Insomnia Ondansetron HCl (Ondansetron Hcl 4 Mg/2 Ml Vial) 4 mg IVPUSH Q6H PRN PRN Reason: nausea Last Admin: 10/11/24 09:30 Dose: 4 mg Documented By: MORTEZA Sodium Chloride (0.9 % Sodium Chloride Flush 3 Ml Syringe) 3 ml IVFLUSH QSHIFT DEAN Last Admin: 10/11/24 22:35 Dose: Not Given Documented By: GREGG Non-Admin Reason: IV Running <Clarence Hoffman PA-C - Last Filed: 10/12/24 07:51> Labs CBC & Chem 7: 10/12/24 05:05 10/12/24 05:05 <Clarence Hoffman PA-C - Last Filed: 10/12/24 07:51> Labs: Laboratory Results - last 24 hr 10/12/24 05:05 MCV 88.3 MCH 29.2 MCHC 33.0 RDW 12.9 Plt Count 221 MPV 10.1 Absolute Nucleated RBC 0.000 Nucleated RBC % (auto) 0.0 Anion Gap 10 L Estim Creat Clear Calc 111.4 Estimated GFR > 60 Random Glucose 98 Calcium 8.8 D <Clarence Hoffman PA-C - Last Filed: 10/12/24 07:51> Procedures Date of Service Date of Service: 10/12/24 <Clarence Hoffman PA-C - Last Filed: 10/12/24 07:51> 10/12/24 <Alexandre Leroy MD - Last Filed: 10/12/24 08:06> Progress Note: A&P Assessment and plan (1) SBO (small bowel obstruction): Status: Acute <Clarence Hoffman PA-C - Last Filed: 10/12/24 07:51> Assessment and Plan: Feels much better Passing flatus well Denies pain He pulled out his NG tube He had to have clear liquids Advance diet as tolerated Seen and examined independently <Alexandre Leroy MD - Last Filed: 10/12/24 08:06> Assessment and Plan: 44 year old male with known Crohn's disease, with history of bowel resection in the past, admitted for SBO. Patient doing well. He removed his own NG tube, denies increased symptoms after removal. He is passing gas, no BM. Abdomen is soft and benign, no longer distended. Will trial clear liquids this morning. Recommend ambulation as tolerated Serial abdominal exams <Clarence Hoffman PA-C - Last Filed: 10/12/24 07:51> Time Spent With Patient Time: Total time managing care of this patient today ____ minutes. <Clarence Hoffman PA-C - Last Filed: 10/12/24 07:51> Quality Stroke Does the patient have a stroke diagnosis?: No <Clarence Hoffman PA-C - Last Filed: 10/12/24 07:51> VTE Prior VTE?: No <Clarence Hoffman PA-C - Last Filed: 10/12/24 07:51> VTE Risk Level:: Medical - moderate - high <Clarence Hoffman PA-C - Last Filed: 10/12/24 07:51> VTE Device Contraindication: N/A - Device Ordered <Clarence Hoffman PA-C - Last Filed: 10/12/24 07:51> VTE Drug Contraindication: N/A - Med Ordered <Clarence Hoffman PA-C - Last Filed: 10/12/24 07:51>
[2024-10-12 07:49] VITALS: BP 130/70; PULSE 66; RESP 18; TEMP 37.4; O2SAT 97
[2024-10-12] MEDS: Heparin Sodium,Porcine 5,000 UNIT/ML VIAL 5000 UNIT SUBCUT (10:22)
--- NOTE | 2024-10-12 12:21 | P.CDIM_ITS ---
PROVIDER RESPONSE TEXT: To clarify, the appropriate diagnosis supported by the clinical indicators: Partial SBO QUERY TEXT: PHYSICIAN'S DOCUMENTATION REQUEST Date of Query: 10/12/2024 09:59 AM EDT Patient Name: Justin Jorge Admit Date: 10/11/2024 Dear Alexandre Leroy MD, A review of the medical record indicates additional documentation may be needed. Please review below and update the documentation accordingly. Clinical Indicators: patient admit with SBO PMH Crohns Disease IVF, NG tube Based on the above, could you clarify the appropriate diagnosis, if significant, that supports the above abnormalities and additional evaluation, monitoring, and/or treatment rendered: Partial SBO Complete SBO Other (explain) Clinically unable to determine (explain) Thank you, Jenniffer Chaney RN Use of terms such as suspected, likely, concern for, or probable (associated with a specific diagnosis that is being evaluated, monitored, or treated as if it exists) are acceptable and can be coded in the inpatient setting, when documented at the time of discharge. Please use your independent medical judgment in providing your response. THIS QUERY IS PART OF THE PERMANENT MEDICAL RECORD
--- NOTE | 2024-10-12 13:05 | MHC.CM.PN ---
pt lives with he is indepndent has a ride home when dcd dc plan home n/s
--- NOTE | 2024-10-12 14:05 | PM.EVENT ---
Event Note Date of Service: 10/12/24 Event Note: Seen on early afternoon rounds He had started on her diet earlier and has been tolerating this well He is passing flatus He denies any tenderness He says he feels well and wants to go home We will therefore discharge him and he will have a follow up with Dr. James Time Spent With Patient Time: Total time managing care of this patient today ____ minutes.
--- NOTE | 2024-10-12 14:28 | MHC.CM.PN ---
pt dcd home self care
--- NOTE | 2024-10-12 15:37 | P.DS_ITS ---
DS: Providers Provider Date of Service: 10/12/24 Date of admission: 10/11/24 07:19 Date of discharge: 10/12/24 Primary care physician: Christopher Lebron DO, MD Admitting clinician: Alexandre Leroy Attending physician on discharge: Alexandre Leroy DS: Diagnosis Discharge Diagnosis (1) SBO (small bowel obstruction): Status: Acute DS: Summary Hospital Course Hospital Course: Admission HPI: Justin Jorge is a 40 year old male well-known to the service with a long history of Crohn's disease and multiple admissions for small-bowel obstructions most recently in 2021, here because of another episode of abdominal pain. His most recent surgery Crohn's disease occurred approximately 7 years ago and was performed in [place]. He reports the onset of abdominal pain diffusely starting yesterday afternoon. He does not recall when his last bowel movement and flatus was. He admits to nausea but no vomiting. The pain is described as crampy but occasionally increases in severity. He says that this episode is the same as his previous multiple episodes. He has had very many CAT scans already and refuses to have another CAT scan. He had a KUB which showed heavy stool volume. In view of his pain consistent with his previous episodes of small- bowel obstruction, he is being admitted to our service. Hospital course: Patient was admitted for observation and conservative management with NG tub and bowel rest. patient felt much improved with NG tube, pain and nausea had resolved. The patient removed his own NG tube overnight without reproduction of symptoms. He was no longer experiencing abdominal pain. On the 2nd day of admission patient's site was advanced to clear liquids which he tolerated well. Later that day was advanced again to regular diet which he can tolerated well. He remained asymptomatic. Patient felt ready for discharge. At the time of the discharge the patient was stable, his abdominal exam was soft and benign. Status at Discharge Functional status at discharge: independent ambulation Overall status at discharge: patient is back to baseline Time Attestation Discharge Coordination Time (in mins): 30 Quality: Safe Use of Opioids Does Pt have an Active Cancer Diagnosis on the Problem List?: No Quality: Stroke Does the patient have a stroke diagnosis?: No Physical Exam Vital Signs: Vital Signs: Last Vital Signs Temp 99.4 F 10/12/24 07:49 Pulse 66 10/12/24 07:49 Resp 18 10/12/24 07:49 BP 130/70 10/12/24 07:49 Pulse Ox 97 10/12/24 07:49 O2 Del Method Room Air 10/12/24 07:49 BMI result Body Mass Index 28.9 Const: General: comfortable and no acute distress Orientation/consciousness: patient oriented x3 Resp: Effort & Inspection: normal respiratory effort and able to speak in complete sentences GI: Inspection: No distended Palpation (GI): Soft to palpation, not firm, nontender, no guarding and not rigid Neuro: General: patient oriented x3 Extrem: General: Yes normal to inspection and Yes full ROM DS: Data Data Completed and Pending Labs on day of discharge: Laboratory Results - last 24 hr 10/12/24 05:05 WBC 7.1 RBC 4.87 Hgb 14.2 Hct 43.0 MCV 88.3 MCH 29.2 MCHC 33.0 RDW 12.9 Plt Count 221 MPV 10.1 Absolute Nucleated RBC 0.000 Nucleated RBC % (auto) 0.0 Sodium 142 Potassium 4.3 Chloride 106 Carbon Dioxide 30 H Anion Gap 10 L BUN 14 Creatinine 0.98 Estim Creat Clear Calc 111.4 Estimated GFR > 60 Random Glucose 98 Calcium 8.8 D Discharge Plan Discharge Anticipated Discharge Date/Time: 10/12/24 13:31 Patient Disposition: Home, Self-Care Discharge Diagnosis: Small bowel obstruction Referrals: Christopher Lebron DO, MD [Primary Care Provider, Internal Medicine] - 1 Week Discharge Medications: Continued ustekinumab [Stelara] 90 mg/mL Syringe 90 mg SUBCUT Q4W vitamin D3-vitamin K2 25 mcg (1,000 unit)-90 mcg Tablet,Disintegrating 1 tab PO DAILY magnesium oxide 400 mg magnesium Tablet 400 mg PO DAILY vitamin K2 100 mcg Capsule 100 mcg PO DAILY Discharge Orders: Discharge Order (Routine); Ordered 10/12/24 Ordered By: Clarence Hoffman Diet: Advance to usual diet Activity on Discharge: As tolerated Stand Alone Forms: Patient Portal Discharge page Print Language: Kazakh Activity Restrictions/Additional Instructions: Please reach out to the office or be seen at the emergency department if you develop: -Recurrent symptoms, abdominal pain, bloating -You develop nausea or vomiting Care Plan Goals: Return to baseline level of health Health Concerns: Recurrent small bowel obstruction Chrons Disease Plan of Treatment: Return to baseline level of health, follow up as needed Assessment: Patient doing well Discharge Date/Time: 10/12/24 14:29
== END 2024-10-12 14:29 | disposition home or self-care (01) | DRG 387 ==
LOC: HO.ED 07:20 → HO.EDOVER 07:51 → HO.S3 16:30
PROVIDERS: Emergency Medicine; Internal Medicine; Admitting Provider Surgery; Emergency Provider Emergency Medicine; PCP Internal Medicine; Visit Provider Surgery
DX: K50.912 Crohn's disease, unspecified, with intestinal obstruction (principal); Z79.620 Long term (current) use of immunosuppressive biologic; Z79.899 Other long term (current) drug therapy
CPT/HCPCS: 36415; 71045; 74018; 80048; 80053; 82248; 83605; 83690; 83735; 85025; 85027; 86140; 99285; J1171; J1644; J2270; J2405; J7120

== ENCOUNTER → 2024-10-11 01:15 | Outpatient (BNV) | payer OTHER, SELFPAY | PROVIDERS: Emergency Provider Emergency Medicine; PCP Internal Medicine; Visit Provider Radiology Diagnostic Radiology | DX: Z46.59 Encounter for fitting and adjustment of other gastrointestinal appliance and device (principal); R10.9 Unspecified abdominal pain | CPT/HCPCS: 71045; 74018 ==

== ENCOUNTER → 2024-10-11 07:19 | Outpatient (BNV) | payer OTHER, SELFPAY | PROVIDERS: Admitting Provider Surgery; Emergency Provider Emergency Medicine; PCP Internal Medicine; Visit Provider Surgery | DX: K56.609 Unspecified intestinal obstruction, unspecified as to partial versus complete obstruction (principal) | CPT/HCPCS: 99222; 99499 ==

== ENCOUNTER 2024-10-26 23:57 | Emergency (ER) | payer OTHER, SELFPAY ==
--- OUTSIDE RECORDS SUMMARY | 2024-02-11 06:00 | XMS_ITS ---
Author Organization [facility] Address [address] [place] [id number] Care Team Providers Care Calendar Control Clerk Blood [employer] Name Role Phone Bernardino GORDON, Christopher Primary Care Provider Broderick Trinidad Unavailable [phone] Igor Peters Unavailable Unavailable REASON FOR VISIT Patient presents today for crohns Encounters Encounter Location Date Provider Diagnosis [facility] [address] [place] [id number] 02/11/2024 Broderick James Plan Of Treatment Next Appt Details Provider Name:Broderick James , 02/08/2025 04:00:00 PM, [address] [place] [address], [address], [place], [address], Progress Notes * SURJIT AUGUSTIN EDOB: [birth year] (44 yo M)Acc No.[id number]:02/11/2024 Progress Notes Patient: Riki PATRICIO SURJIT Wright Provider: Miladis James MD :1980 A ge:44 Y S ex:Male Date:02/11/2024 Address:[address] [place], [place] [id number] Pcp:Christopher Lebron MD Subjective: * Chief Complaints: * 1 . Patient presents today for crohns. * Medical History: Objective: * Vitals: Assessment: Plan: * Treatment: * * The named appointment provid er may or may not be the originator of this progress note, and it is not deemed complete until electronically signed by the appointment provider. Sign off status: Pending * Provider: Miladis James MD Date: 1 Generated for Chandrika david/Hamzah/Josh on: 0 10/27/2024 01:01 AM EDT
--- NOTE | ~2024-10-26 | XR_ITS ---
CLINICAL HISTORY: disention and pain hx of SBO 1 view abdomen Comparison: CR - XR KUB - 10/11/24 01:31 EDT Findings: No pneumoperitoneum or pneumatosis. Moderate stool burden. No bowel obstruction. No abnormal calcifications. No acute fractures. IMPRESSION: Moderate stool burden. No bowel obstruction. This document has been electronically signed by: Asif Iglesias MD on 10/27/2024 01:26:21
[2024-10-26 23:59] VITALS: BP 137/89; PULSE 76; RESP 17; TEMP 36.6; O2SAT 99; BMI 28.3
[2024-10-27] VITALS (7 sets, daily range): BP systolic 91–117; BP diastolic 55–69; PULSE 52–71; RESP 16–18; TEMP 36.5–36.6; O2SAT 95–97
[2024-10-27 00:25] LABS: MANUAL DIFF FLAG NO
--- NOTE | 2024-10-27 00:26 | ED.ABDPAIN ---
HPI - Abdominal Pain General Chief Complaint: Abdominal Pain Stated Complaint: abd pain Time Seen by Provider: 10/27/24 00:09 Source: patient and old records reviewed Mode of arrival: ambulatory Limitations: no limitations History of Present Illness ED Provider: BEN HPI narrative: 44 yo male with PMH of Crohns who follows with James on Stelara as well as frequent SBOs that require NG tube as well as hx of surgery and lysis of adhesions. He sees Dr. Leroy as well. He reports around 4pm he started with nausea and abdominal pain with distention. He notes he had BM earlier today. He feels like he has a SBO again. He states he did pass gas around 7 and thought it was getting better but then it became abruptly worse. He reports he does not want CT scan and will only get KUB or MRI. He also places his own NG tube. No fevers, no urinary symptoms. MD elicited complaint: abdominal pain Pertinent past history: other (SBO) Onset (ago): hour(s) (4pm) Pain Consistency: constant Location: diffuse Severity: severe Quality: stabbing and aching Radiation: none Migration to: no migration Exacerbating factors: movement Relieving factors: nothing Context: history of similar episodes Associated symptoms: nausea Related Data Home Medications ?Medication ?Instructions ?Recorded ?Confirmed ustekinumab 90 mg/mL subcutaneous 90 mg subcut Q4W 04/13/20 10/11/24 syringe (Stelara) magnesium oxide 400 mg PO DAILY 10/11/24 10/11/24 vitamin D3 25 mcg (1,000 unit)-vit 1 tab PO DAILY 10/11/24 10/11/24 K2 90 mcg disintegrating tablet vitamin K2 100 mcg capsule 100 mcg PO DAILY 10/11/24 10/11/24 Previous Rx's ?Medication ?Instructions ?Recorded ondansetron 4 mg disintegrating 4 mg PO TID PRN nausea and 10/27/24 tablet vomiting 5 days #10 tabs Allergies Allergy/AdvReac Type Severity Reaction Status Date / Time Penicillins Allergy Mild RASH Verified 10/27/24 00:01 penicillin V Allergy Unknown rash Verified 10/27/24 00:01 levofloxacin (From Levaquin) Allergy Muscle Pain Verified 10/27/24 00:01 Review of Systems Review of Systems Constitutional : No Weight loss, No Fever, No Chills ENT/Mouth : No sore throat, No Rhinorrhea Eyes: No Swelling, No Redness Cardiovascular : No Chest Pain, No SOB, NoEdema Respiratory : No Cough, No Sputum, No Wheezing Gastrointestinal : Positive Nausea, no Vomiting, no Diarrhea, positive abdominal Pain, No Hematochezia, No Melena Genitourinary : No Dysuria, No Urinary Frequency, No Hematuria, No Urgency Musculoskeletal : No joint pain, No Myalgias, No Joint Swelling Skin : No Skin Lesions, No rash Neuro : No Weakness, No Numbness, No Dizziness, No Headache All other systems reviewed and are negative. [facility] Past Medical History Attestation statement: The following information was validated with the patient. Source: old records reviewed Medical History Small bowel obstruction Small bowel obstruction Anxiety Crohn's disease Acute Crohn's disease SBO (small bowel obstruction) Surgical History History of bowel resection History of laparotomy Hx of appendectomy History of bowel resection Social History Social History Household Members: Family Housing: House Do you presently have visiting nurse or other home services: No Alcohol intake: never Comment: Pt sleeping on stretcher in NAD without signs of pain/discomfort present Patient Tobacco Use Status: Never used Tobacco Smoked in Last 30 Days: No Second Hand Smoke Exposure: No Use of substances other than those prescribed or required for medical reasons: No Advance Directives: Yes Advance Directives on File: Yes Advance Directives Date on File: 02/17/22 Do you have a plan to hurt others: No Plan service: No Current occupational status: employed and retired Physical Exam ED Vital Signs: Vital Signs - 24 hr 10/26/24 23:59 10/27/24 00:33 10/27/24 03:30 Temperature 97.8 F 97.9 F Pulse Rate 76 52 Respiratory Rate 17 18 16 Blood Pressure 137/89 107/64 Pulse Oximetry 99 96 Oxygen Delivery Method Room Air Room Air 10/27/24 04:36 10/27/24 04:39 10/27/24 04:50 Temperature 97.7 F Pulse Rate 52 59 Respiratory Rate 16 16 Blood Pressure 91/55 L 117/69 Pulse Oximetry 95 Oxygen Delivery Method Room Air 10/27/24 06:38 Temperature 97.7 F Pulse Rate 71 Respiratory Rate 16 Blood Pressure 108/63 Pulse Oximetry 97 Oxygen Delivery Method Room Air BMI result Body Mass Index 28.3 Appearance: Alert. Oriented X3. in pain mild acute distress. Eyes: Pupils equal, round and reactive to light. ENT: Pharynx normal. Neck: Normal inspection. Neck supple. CVS: Normal heart rate and rhythm. Pulses normal. Respiratory: No respiratory distress. Breath sounds normal. Abdomen: soft but distended and diffuse ttp - prior surgical scars noted Skin: Skin warm and dry. Normal skin color. Normal skin turgor. Extremities: No lower extremity edema. No calf ttp Neuro: Oriented X 3. No motor deficit. No sensory deficit. CN2-12 intact Course Course Course Narrative: sleeping after IV dilaudid Medical Decision Making Medical Decision Making [facility] Narrative: 44 yo male with PMH of Crohns who follows with James on Stelara as well as frequent SBOs here with c/o feeling like he has another SBO symptoms starting around 4pm. He refuses CT scan will get KUB - he will need labs, KUB, IVF, pain control - IV dilaudid ordered, will discuss with surgery pending KUB anticipate NG tube placement Patient is seen by surgery. Clinically feels much improved. Was able to tolerate fluids. To be discharged home. A script for Zofran was given. Explained to patient worsening condition return. In stable condition. Differential Diagnosis Differential Diagnoses: The differential diagnosis associated with the presentation includes SBO, PSBO, Crohns Admission/Observation Consideration of admission/observation: Escalation of care including admission/observation considered surgery to see in AM Consult Healthcare Provider Management of the patient was discussed with: Racket Stringer Gurwinder VEGA from surgery aware team will round in AM Lab Data [facility] Lab Attestation statement: I reviewed the patient's lab results. 10/27/24 00:21 10/27/24 00:21 Labs: Lab Results 10/27/24 Range/Units 00:21 WBC 10.9 H (4.8-10.8) X10*3/uL RBC 5.73 (4.60-5.80) X10*6/uL Hgb 16.8 (14.0-18.0) g/dl Hct 48.7 (42.0-52.0) % MCV 85.0 (80.0-98.0) fL MCH 29.3 (27.0-33.0) pg MCHC 34.5 (31.0-36.0) g/dl RDW 12.9 (11.0-16.0) % Plt Count 294 D (160-400) X10*3/uL MPV 10.1 (9.4-12.4) fL Immature Gran % (Auto) 0.3 (0.0-0.4) % Neut % (Auto) 59.9 (45-73) % Lymph % (Auto) 27.7 (20-40) % Meade % (Auto) 10.1 (2-11) % Eos % (Auto) 1.6 (0-4) % Baso % (Auto) 0.4 (0-2) % Lymph # (Auto) 3.0 (1.2-4.9) X10*3/uL Meade # (Auto) 1.1 (0.1-1.2) X10*3/uL Eos # (Auto) 0.2 (0.0-0.4) X10*3/uL Baso # (Auto) 0.0 (0.0-0.2) X10*3/uL Abs Immat Gran (auto) 0.03 (0.00-0.03) X10*3/uL Absolute Neuts (auto) 6.5 (2.0-8.3) x10*3/uL Absolute Nucleated RBC 0.000 (0.0-0.012) X10*3/uL Nucleated RBC % (auto) 0.0 (0.0-0.2) /100WBC Sodium 138 (135-145) mmol/L Potassium 4.0 (3.3-5.1) mmol/L Chloride 103 (96-108) mmol/L Carbon Dioxide 23 (22-29) mmol/L Anion Gap 16 (12-20) BUN 25 H (9-16) mg/dL Creatinine 1.14 (0.5-1.4) mg/dL Estim Creat Clear Calc 94.9 Estimated GFR > 60 Random Glucose 104 (60-115) mg/dL Calcium 9.7 D (8.4-10.2) mg/dL Total Bilirubin 0.6 (0.0-1.0) mg/dL AST 31 (5-37) U/L ALT 27 (0-40) U/L Alkaline Phosphatase 61 (39-117) U/L Total Protein 8.4 H (6.5-8.0) g/dL Albumin 5.0 (3.5-5.0) g/dL Lipase 33 (8-78) U/L Independent Interpretation I performed an independent interpretation of an: Plain X-Ray (no SBO) Radiology Impression Discussion of test interpretation with radiology: I have reviewed the radiologist's reading. External Record Review External record reviewed: Inpatient record and Outpatient record Medications Administered Generic Name Dose Route Start Last Admin Trade Name Freq PRN Reason Stop Dose Admin Hydromorphone HCl 1 mg 10/27/24 01:33 10/27/24 04:39 Hydromorphone Hcl 1 Mg/Ml Syringe IVPUSH 1 mg Q3H PRN Administration Pain, Moderate(Pain Scale 4-6) Protocol Lactated Ringer's 1,000 mls @ 100 mls/hr 10/27/24 00:30 10/27/24 03:27 Lr IVCONT 100 mls/hr .Q10H DEAN Administration Discontinued Medications Generic Name Dose Route Start Last Admin Trade Name Freq PRN Reason Stop Dose Admin Hydromorphone HCl 1 mg 10/27/24 00:21 10/27/24 00:33 Hydromorphone Hcl 1 Mg/Ml Syringe IVPUSH 10/27/24 00:22 1 mg ONCE ONE Administration Protocol Lactated Ringer's 1,000 mls @ 999 mls/hr 10/27/24 00:21 10/27/24 01:43 Lr IV 10/27/24 01:21 Infused .Q1H1M ONE Infusion Ondansetron HCl 4 mg 10/27/24 00:21 10/27/24 00:33 Ondansetron Hcl 4 Mg/2 Ml Vial IVPUSH 10/27/24 00:22 4 mg ONCE ONE Administration Critical Care Time Critical Care Time Critical Care Time: Yes Total Critical Care Time: 35 Attestation: Time is exclusive of separately billable procedures. Time includes: direct patient care, patient reassessment, coordination of patient care, interpretation of data (laboratory data, pulse oximetry, xray), review of patient's medical records, medical consultation and documentation of patient care. IV dilaudid for pain with improvement in pain. Procedures excluded from critical care time: central intravenous line placement and electrocardiography. I attest to this time spent taking care of the patient Discharge Plan Discharge Clinical Impression: Nausea Abdominal pain Qualifiers: Abdominal location: generalized Qualified Code(s): R10.84 - Generalized abdominal pain Patient Disposition: Home, Self-Care Instructions: Acute Nausea and Vomiting (ED), Acute Abdominal Pain (DC) Prescriptions: New ondansetron 4 mg tablet,disintegrating 4 mg PO TID PRN (Reason: nausea and vomiting) 5 Days Qty: 10 0RF No Action ustekinumab [Stelara] 90 mg/mL Syringe 90 mg SUBCUT Q4W vitamin D3-vitamin K2 25 mcg (1,000 unit)-90 mcg Tablet,Disintegrating 1 tab PO DAILY magnesium oxide 400 mg magnesium Tablet 400 mg PO DAILY vitamin K2 100 mcg Capsule 100 mcg PO DAILY Referrals: Physician,None [Primary Care Provider, Medical] - 10/31/24 Print Language: Zimbabwean
[2024-10-27] MEDS: Lactated Ringers 1,000 ML 999 ML IV (00:33)
[2024-10-27 00:40] LABS: Hematocrit 48.7 % (42.0-52.0); Hemoglobin 16.8 g/dl (14.0-18.0); Imm Gran Abs Auto 0.03 X10*3/uL (0.00-0.03); Imm Gran Pct Auto 0.3 % (0.0-0.4); Lymphocytes Absolute Auto 3.0 X10*3/uL (1.2-4.9); Mean Corpuscular HGB Conc 34.5 g/dl (31.0-36.0); Mean Corpuscular Hemoglobin 29.3 pg (27.0-33.0); Mean Corpuscular Volume 85.0 fL (80.0-98.0); NRBC Abs Auto 0.000 X10*3/uL (0.0-0.012); NRBC Pct Auto 0.0 /100WBC (0.0-0.2); Platelet Count 294 X10*3/uL (160-400); Red Blood Count 5.73 X10*6/uL (4.60-5.80); White Blood Count 10.9 X10*3/uL (4.8-10.8)
[2024-10-27 00:43] LABS: Alanine Aminotransferase 27 U/L (0-40); Albumin Level 5.0 g/dL (3.5-5.0); Alkaline Phosphatase 61 U/L (39-117); Anion Gap 16 (12-20); Aspartate Amino Transferase 31 U/L (5-37); Blood Urea Nitrogen 25 mg/dL (9-16); Calcium 9.7 mg/dL (8.4-10.2); Carbon Dioxide 23 mmol/L (22-29); Chloride 103 mmol/L (96-108); Creatinine Clr Calc Pharmacy 94.9; Estimated Glomerular Filt Rate > 60; Lipase 33 U/L (8-78); Potassium 4.0 mmol/L (3.3-5.1); Sodium 138 mmol/L (135-145); Total Protein 8.4 g/dL (6.5-8.0)
--- OUTSIDE RECORDS SUMMARY | 2024-10-27 01:01 | XMS_ITS | Clinical Summary ---
Author Organization [facility] Address [address] [place] [address] Care Team Providers Care Agency Owner Name Role Phone Claudette Lebron MD Primary Care Provider [phone] Allergies Active Allergy Reactions Criticality Noted Date Comments Penicillins 09/14/2019 Medications No known medications Active Problems No known active problems Social History Tobacco Use Types Packs/Day Years Used Date Smoking Tobacco: Never Smokeless Tobacco: Never Alcohol Use Standard Drinks/Week Comments No 0 (1 standard drink = 0.6 oz pur e alcohol) Sex and Gender Information Value Date Recorded Sex Assigned at Not on file Gender Identity Not on file Sexual Orientation Not on file Job Start Date Occupation Industry Not on file Not on file Not on file Last Filed Vital Signs Vital Sign Reading Time Taken Comments Blood Pressure 139/71 09/14/2019 9:57 AM EDT Pulse 52 09/14/2019 9:57 AM EDT Temperature 36.9 C (98.4 F) 09/14/2019 9:57 AM EDT Respiratory Rate - - Oxygen Saturation - - Inhaled Oxygen Concentration - - Weight 91.6 kg (202 lb) 09/14/2019 9:57 AM EDT Height 180.3 cm (5' 11 ) 09/14/2019 9:57 AM EDT Body Mass Index 28.17 09/14/2019 9:57 AM EDT Plan of Treatment Health Maintenance Due Date Last Done Comments Hepatitis B Vaccines (1 of 3 - 3-dose series) 1979 Hepatitis C Screening 1979 COVID-19 Vaccine (#1) 1979 Depression Screening 1991 Preventative Health Evaluation 1997 DTap / Tdap / Td (1 - Tdap) 1998 Colon Cancer Screening (Colonoscopy) 01/19/2024 Influenza Vaccine (Season Ended) 2024 Pneumococcal Vaccine Aged Out No long er eligible based on patient's age to complete this topic RSV Ped < 20 months Aged Out No longe r eligible based on patient's age to complete this topic Care Teams Agency Owner Relationship Specialty Start Date End Date Claudette Lebron MD [address] [place] [phone] PCP - General Internal Medicine 08/11/19
[2024-10-27] MEDS: Lactated Ringers 1,000 ML 100 ML IVCONT (03:27)
--- NOTE | 2024-10-27 05:05 | PC.NURSE ---
Patient medicated per MAR for 6/10 pain in mid abdomen, effect pending. Patient denies nausea at present. LR infusing via 20 G IV line in R AC without issues. Call paz within patient's reach. Plan of care ongoing.
--- NOTE | 2024-10-27 08:23 | P.CONGS_ITS ---
History of Present Illness Consult details Consult date: 10/27/24 Narrative: 40 year old male well-known to the service with a long history of Crohn's disease and multiple admissions for small-bowel obstructions most recently in 2021, here because of another episode of abdominal pain. His most recent surgery Crohn's disease occurred approximately 7 years ago and was performed in [place]. He has had multiple admissions here in the hospital for partial small-bowel obstruction. He was actually here in the hospital about 2 weeks ago for an episode of small-bowel obstruction which resolved for after 1 day He started to have another episode of crampy diffuse abdominal pain yesterday afternoon. He says that this persisted so he came last night to the ER. He had some nausea but no vomiting. He does state that his pain has resolved from early this morning. He denies any nausea or vomiting anymore. He denies any tenderness. He is passing flatus. The pain is described as crampy but occasionally increases in severity. He says that this episode is the same as his previous multiple episodes. He has had very many CAT scans already and refuses to have another CAT scan. Review of Systems 2 Constitutional: Constitutional: Denies chills and Denies fever(s) Cardiovascular: Cardiovascular: Denies chest pain, Denies dyspnea and Denies dyspnea on exertion Respiratory: Respiratory: Denies cough, Denies dyspnea and Denies dyspnea on exertion Gastrointestinal: Gastrointestinal: Denies hematochezia and Denies change in bowel habits Genitourinary: Genitourinary: Denies hematuria and Denies difficulty urinating Musculoskeletal: Musculoskeletal: Denies back pain and Denies limited range of motion Neurologic: Denies focal weakness and Denies convulsions Psychiatric: Psychiatric: Denies depression and Denies mood swings [facility] Past Medical History Medical History Small bowel obstruction Small bowel obstruction Anxiety Crohn's disease Acute Crohn's disease SBO (small bowel obstruction) Surgical History Surgical History History of bowel resection History of laparotomy Hx of appendectomy History of bowel resection Social History Social History Household Members: Family Housing: House Do you presently have visiting nurse or other home services: No Alcohol intake: never Comment: Pt sleeping on stretcher in NAD without signs of pain/discomfort present Patient Tobacco Use Status: Never used Tobacco Smoked in Last 30 Days: No Second Hand Smoke Exposure: No Use of substances other than those prescribed or required for medical reasons: No Advance Directives: Yes Advance Directives on File: Yes Advance Directives Date on File: 02/17/22 Do you have a plan to hurt others: No Plan service: No Current occupational status: employed and retired Meds Allergies Allergy/AdvReac Type Severity Reaction Status Date / Time Penicillins Allergy Mild RASH Verified 10/27/24 00:01 penicillin V Allergy Unknown rash Verified 10/27/24 00:01 levofloxacin (From Levaquin) Allergy Muscle Pain Verified 10/27/24 00:01 Active Medications: Current Medications Hydromorphone HCl (Hydromorphone Hcl 1 Mg/Ml Syringe) 1 mg IVPUSH Q3H PRN; Protocol PRN Reason: Pain, Moderate(Pain Scale 4-6) Last Admin: 10/27/24 04:39 Dose: 1 mg Lactated Ringer's (Lr) 1,000 mls @ 100 mls/hr IVCONT .Q10H DEAN Last Admin: 10/27/24 03:27 Dose: 100 mls/hr Home Medications ?Medication ?Instructions ?Recorded ?Confirmed ?Last Taken ?Type ustekinumab 90 mg/mL subcutaneous 90 mg subcut Q4W 10/11/24 1 Month Ago History syringe (Stelara) ~09/10/24 magnesium oxide 400 mg PO DAILY 10/11/2410/09/24 History vitamin D3 25 mcg (1,000 unit)-vit 1 tab PO DAILY 09/2510/11/24 10/09/24 History K2 90 mcg disintegrating tablet vitamin K2 100 mcg capsule 100 mcg PO DAILY 10/11/24 0 10/11/24 10/09/24 History Physical Exam 2 Vital Signs: Vital Signs: Last Vital Signs Temp 97.7 F 10/27/24 06:38 Pulse 71 10/27/24 06:38 Resp 16 10/27/24 06:38 BP 108/63 10/27/24 06:38 Pulse Ox 97 10/27/24 06:38 O2 Del Method Room Air 10/27/24 06:38 BMI result Body Mass Index 28.3 Const: General: comfortable and no acute distress Resp: Effort & Inspection: normal respiratory effort Cardio: Rate: regular rate GI: Palpation (GI): Soft to palpation, not firm, nontender and no guarding Results Labs 10/27/24 00:21 10/27/24 00:21 Labs: Abnormal lab results 10/27/24 Range/Units 00:21 WBC 10.9 H (4.8-10.8) X10*3/uL BUN 25 H (9-16) mg/dL Total Protein 8.4 H (6.5-8.0) g/dL Short CBC 10/27/24 Range/Units 00:21 WBC 10.9 H (4.8-10.8) X10*3/uL Hgb 16.8 (14.0-18.0) g/dl Hct 48.7 (42.0-52.0) % Plt Count 294 D (160-400) X10*3/uL BMP 10/27/24 00:21 Sodium 138 Potassium 4.0 Chloride 103 Carbon Dioxide 23 BUN 25 H Creatinine 1.14 Calcium 9.7 D Liver Function 10/27/24 Range/Units 00:21 Total Bilirubin 0.6 (0.0-1.0) mg/dL AST 31 (5-37) U/L ALT 27 (0-40) U/L Alkaline Phosphatase 61 (39-117) U/L Albumin 5.0 (3.5-5.0) g/dL All other labs normal. Assessment and Plan (1) Abdominal pain: Qualifiers: Abdominal location: generalized Qualified Code(s): R10.84 - Generalized abdominal pain Status: Acute He is well known to the service. He has had multiple admissions for partial small-bowel obstruction. He has known Crohn's disease He has pain has resolved completely. His abdomen is soft and benign and nontender. He says that he is ready to be discharged I told him that he can go home this morning after having oral intake in the ER. He understands the risks of recurrence he has episodes. He has had this for many years. He looks well and comfortable He also sees Dr. James for regular follow-ups for his Crohn's disease. I discussed the above with the ED staff. Procedures Date of Service Date of Service: 10/27/24
== END 2024-10-27 09:50 | disposition home or self-care (01) ==
PROVIDERS: Emergency Provider Emergency Medicine
DX: R10.84 Generalized abdominal pain (principal); R14.0 Abdominal distension (gaseous); R11.0 Nausea; Z79.899 Other long term (current) drug therapy
CPT/HCPCS: 36415; 74018; 80053; 83690; 85025; 96361; 96374; 96375; 96376; 99284; 99285; J1171; J2405; J7120

== ENCOUNTER → 2024-10-27 00:21 | Outpatient (BNV) | payer OTHER, SELFPAY | PROVIDERS: Emergency Provider Emergency Medicine; Visit Provider Radiology Diagnostic Radiology | DX: R14.0 Abdominal distension (gaseous) (principal); R10.9 Unspecified abdominal pain | CPT/HCPCS: 74018 ==

== ENCOUNTER → 2024-10-27 00:58 | Outpatient (BNV) | payer OTHER, SELFPAY | PROVIDERS: Emergency Provider Emergency Medicine; Visit Provider Surgery | DX: R10.84 Generalized abdominal pain (principal) | CPT/HCPCS: 99283 ==